=== PATIENT | male | born 1950 | race Caucasian/White ===

== ENCOUNTER 2018-05-20 10:29 | Inpatient (IN) ==
[2018-05-20 11:33] LABS: Baso % (Auto) 0.6 % (0.0-2.0); Eos # (Auto) 0.2 th/mm3 (0.0-0.4); Hematocrit 44.8 % (39.0-51.0); Lymph # (Auto) 1.1 th/mm3 (1.0-4.8); Lymph % (Auto) 13.5 % (9.0-44.0); Mean Corpuscular HGB Conc 33.4 % (32.0-36.0); Mean Corpuscular Hemoglobin 30.2 pg (27.0-34.0); Mean Corpuscular Volume 90.3 fL (80.0-100.0); Mono # (Auto) 0.5 th/mm3 (0.0-0.9); Mono % (Auto) 6.1 % (0.0-8.0); Neut % (Auto) 76.8 % (16.0-70.0); Platelet Count 244 th/mm3 (150-450); Red Blood Count 4.96 mil/mm3 (4.50-5.90); Red Cell Distribution Width 15.4 % (11.6-17.2); White Blood Count 7.8 th/mm3 (4.0-11.0)
[2018-05-20 11:45] LABS: Albumin 3.9 g/dL (3.4-5.0); Anion Gap 8 meq/L (5-15); Aspartate Aminotransferase 42 U/L (15-37); Blood Urea Nitrogen 15 mg/dL (7-18); Calcium 9.4 mg/dL (8.5-10.1); Carbon Dioxide 25.9 meq/L (21.0-32.0); Chloride 107 meq/L (98-107); Glomerular Filtration Rate 58 mL/min (>89); Glucose,Random 111 mg/dL (74-106); Sodium 141 meq/L (136-145)
[2018-05-20 11:48] LABS: Alanine Aminotransferase 22 U/L (12-78); Alkaline Phosphatase 71 U/L (45-117); Total Protein 7.9 g/dL (6.4-8.2)
[2018-05-20 11:57] LABS: INR 1.1 Ratio; Prothrombin Time 10.9 sec (9.8-11.6)
--- NOTE | 2018-05-20 12:43 | XR ---
EXAM DATE: 05/20/2018 10:55 AM EDT AGE/SEX: 68 years / Male INDICATIONS: Right foot pain and swelling, pain entire, burning on plantar surface and medial side CLINICAL DATA: This is the patient's initial encounter. Patient reports that signs and symptoms have been present for 2 weeks and indicates a pain score of 10/10. MEDICAL/SURGICAL HISTORY: None. None. COMPARISON: No prior exams available for comparison. FINDINGS: Bony structures are intact and in normal alignment. Osseous density is normal. Soft tissues are unre markable. No radiopaque foreign bodies seen. CONCLUSION: Negative for an acute process Electronically signed by: Shalom Qiu MD 05/20/2018 12:42 PM EDT
--- NOTE | 2018-05-20 14:14 | ED ---
HPI General Chief complaint: Recheck/Abnormal Lab/Rx Stated complaint: right & left foot swelling Time Seen by Provider: 05/20/18 10:49 Source: patient Mode of arrival: ambulatory Limitations: no limitations History of Present Illness HPI Narrative: 68-year-old male complains of pain redness and swelling right foot. Patient states her symptoms started 2 weeks ago. Patient denies any injury to right foot. Patient states that he has redness swelling and tenderness on the right foot about 3 months ago which lasted about a week and resolved completely. Patient states that symptoms recurring again 2 weeks ago. Patient denies any fever chills. Patient denies any history of hypertension, diabetes, hyperlipidemia. Patient is a smoker. Complaint: extremity pain Onset (ago): week(s) Pain Consistency: constant Severity scale (1-10): 5 Quality: sharp Radiation: none Relieving factors: nothing Exacerbating factors: nothing Associated symptoms: denies other symptoms Related Data Home Medications Medication Instructions Recorded Confirmed No Known Home Medications 05/20/18 05/20/18 Allergies Allergy/AdvReac Type Severity Reaction Status Date / Time No Known Allergies Allergy Verified 05/20/18 11:36 Review of Systems ROS: all other systems reviewed are negative [facility] Medical History Medical History Patient denies medical problems (Acute) Surgical History Surgical History No history of previous surgery (Acute) Family History Family History Brother Peripheral vascular disease Diabetes Father Peripheral vascular disease Social History Social History Substance History: No History of Abuse Second Hand Smoke Exposure: No Smoking Status: Current every day smoker Tobacco Type: Cigarettes Packs Per Day: 2 Cigarettes Per Day: 40.0 Years Smoked: 55 Pack-Years: 110.00 How Often Do You Have a Drink Containing Alcohol: Monthly or less Recent Travel in [facility] within the Last 8 Weeks: No Recent Out of Country Travel within the Last 8 Weeks: No Immunization History Tetanus Immunization: >5 Years Hx Influenza Vaccine This Season: No Exam Narrative Exam Narrative: GENERAL: Well-nourished, well-developed patient. SKIN: Focused skin assessment warm/dry. HEAD: Normocephalic. EYES: No scleral icterus. No injection or drainage. NECK: Supple, trachea midline. No JVD or lymphadenopathy. CARDIOVASCULAR: Regular rate and rhythm without murmurs, gallops, or rubs. RESPIRATORY: Breath sounds equal bilaterally. No accessory muscle use. GASTROINTESTINAL: Abdomen soft, non-tender, nondistended. MUSCULOSKELETAL: No cyanosis, or edema. BACK: Nontender without obvious deformity. No CVA tenderness. Examination of right foot shows small necrotic tissue on the tip of the right big toe and second toe. Redness swelling with mild tenderness extending from the toes to the midfoot area. Course Initial Documented Vital Signs Temperature 98.0 F 05/20/18 10:35 Pulse Rate 103 H 05/20/18 10:35 Respiratory Rate 20 05/20/18 10:35 Blood Pressure 144/66 H 05/20/18 10:35 Pulse Oximetry 96 05/20/18 10:35 Last Documented Vital Signs Temperature 98.0 F 05/20/18 10:35 Pulse Rate 96 H 05/20/18 14:00 Respiratory Rate 18 05/20/18 14:00 Blood Pressure 137/65 05/20/18 14:00 Pulse Oximetry 98 05/20/18 14:00 Medical Decision Making [facility] [place] Narrative Medical decision making narrative: 68-year-old male with redness swelling tenderness right foot and necrotic tissue tip of the big toe and second toe. Patient is a smoker. Medical Screen Exam Complete: Yes Emergency Medical Condition: Yes Differential Diagnosis Differential Diagnosis: Differential diagnosis including vascular insufficiency , cellulitis, osteomyelitis. Lab Data Result diagrams: 05/20/18 11:17 05/20/18 11:17 Lab Results 05/20/18 05/20/18 05/20/18 Range/Units 11:17 11:17 11:17 WBC 7.8 (4.0-11.0) th/mm3 RBC 4.96 (4.50-5.90) mil/mm3 Hgb 15.0 (13.0-17.0) gm/dL Hct 44.8 (39.0-51.0) % MCV 90.3 (80.0-100.0) fL MCH 30.2 (27.0-34.0) pg MCHC 33.4 (32.0-36.0) % RDW 15.4 (11.6-17.2) % Plt Count 244 (150-450) th/mm3 MPV 8.0 (7.0-11.0) fL Neut % (Auto) 76.8 H (16.0-70.0) % Lymph % (Auto) 13.5 (9.0-44.0) % Mason % (Auto) 6.1 (0.0-8.0) % Eos % (Auto) 3.0 (0.0-4.0) % Baso % (Auto) 0.6 (0.0-2.0) % Neut # (Auto) 6.0 (1.8-7.7) th/mm3 Lymph # (Auto) 1.1 (1.0-4.8) th/mm3 Mason # (Auto) 0.5 (0.0-0.9) th/mm3 Eos # (Auto) 0.2 (0.0-0.4) th/mm3 Baso # (Auto) 0.0 (0.0-0.2) th/mm3 WBC Differential . Differential Comment Auto diff final ESR (0-20) mm/hr PT 10.9 (9.8-11.6) sec INR 1.1 Ratio Sodium 141 (136-145) meq/L Potassium 4.0 (3.5-5.1) meq/L Chloride 107 (98-107) meq/L Carbon Dioxide 25.9 (21.0-32.0) meq/L Anion Gap 8 (5-15) meq/L BUN 15 (7-18) mg/dL Creatinine 1.24 (0.60-1.30) mg/dL Estimated GFR 58 L (>89) mL/min Random Glucose 111 H (74-106) mg/dL Calcium 9.4 (8.5-10.1) mg/dL Total Bilirubin 0.5 (0.2-1.0) mg/dL AST 42 H (15-37) U/L ALT 22 (12-78) U/L Alkaline Phosphatase 71 (45-117) U/L Total Protein 7.9 (6.4-8.2) g/dL Albumin 3.9 (3.4-5.0) g/dL 05/20/18 Range/Units 11:17 WBC (4.0-11.0) th/mm3 RBC (4.50-5.90) mil/mm3 Hgb (13.0-17.0) gm/dL Hct (39.0-51.0) % MCV (80.0-100.0) fL MCH (27.0-34.0) pg MCHC (32.0-36.0) % RDW (11.6-17.2) % Plt Count (150-450) th/mm3 MPV (7.0-11.0) fL Neut % (Auto) (16.0-70.0) % Lymph % (Auto) (9.0-44.0) % Mason % (Auto) (0.0-8.0) % Eos % (Auto) (0.0-4.0) % Baso % (Auto) (0.0-2.0) % Neut # (Auto) (1.8-7.7) th/mm3 Lymph # (Auto) (1.0-4.8) th/mm3 Mason # (Auto) (0.0-0.9) th/mm3 Eos # (Auto) (0.0-0.4) th/mm3 Baso # (Auto) (0.0-0.2) th/mm3 WBC Differential Differential Comment ESR 24 H (0-20) mm/hr PT (9.8-11.6) sec INR Ratio Sodium (136-145) meq/L Potassium (3.5-5.1) meq/L Chloride (98-107) meq/L Carbon Dioxide (21.0-32.0) meq/L Anion Gap (5-15) meq/L BUN (7-18) mg/dL Creatinine (0.60-1.30) mg/dL Estimated GFR (>89) mL/min Random Glucose (74-106) mg/dL Calcium (8.5-10.1) mg/dL Total Bilirubin (0.2-1.0) mg/dL AST (15-37) U/L ALT (12-78) U/L Alkaline Phosphatase (45-117) U/L Total Protein (6.4-8.2) g/dL Albumin (3.4-5.0) g/dL Imaging Data Attestation: I personally reviewed and interpreted this imaging study as follows : Radiologist's impression: Foot X-Ray 05/20/18 10:55 CONCLUSION: Negative for an acute process Discharge Plan Discharge Disposition Patient Disposition: 30 Still Patient Discharge Details Diagnosis: Cellulitis of foot, right Physicians Team ED Provider: Mp Monroy Primary Care Provider: UNKNOWN, Attending Provider: Pascual Lee Status ED Status: Admitted Patient
--- NOTE | 2018-05-20 15:48 | P.HPIM ---
History of Present Illness Primary Care Physician: No PCP History of Present Illness: 68 year old with longstanding history of tobacco abuse presenting with right 1st and 2nd toe pain and right foot swelling/erythema. The patient states that for the past three weeks his right 1st and 2nd toes have become progressively black at the distal ends. He thought at first he may have had a fungus but it became progressively more painful with time to the point where he could barely put weight on his feet. He states in the past 2-3 days he noticed redness and swelling of the dorsum of his right foot. He denies fever, chills, calf pain, chest pain, shortness of breath, cough, rash, nausea, vomiting, or abdominal pain. He denies any medical problems but he also hasn't been seen by a doctor in at least ten years. He has been smoking for 55 years and states he is up to 2PPD. He has a strong family history of PAD in his brother and father. His brother has bilateral AKAs from PVD. The patient does not take any medications. He endorses pain in his foot that wakes him from sleep at night and states it is improved when he hangs his foot off the bed. - Diagnosis (1) Peripheral vascular disease (2) Ischemic ulcer Inpatient Certification: I certify that the inpatient services were ordered in accordance with Medicare regulations governing the order. This includes certification that hospital inpatient services are reasonable and necessary and in the case of services not specified as inpatient-only under 42 CFR 419.22(n), that they are appropriately provided as inpatient services in accordance to with the 2-midnight benchmark under 43 CFR 412.3(e) Estimated Total Length of Stay (Days): 2 Plans for Post Hospital Care: Not yet determined Review of Systems All other systems reviewed negative except as stated in HPI PMFSH - History History Provided By: Patient - Medical History Medical History: Medical History (Last Updated 05/20/18 @ 17:34 by Niyah Varela MD) Tobacco abuse - Surgical History Surgical History: Surgical History (Last Reviewed 05/20/18 @ 18:17 by Gael Veloz MD) No history of previous surgery - Family History Family History: Family History (Last Updated 05/20/18 @ 15:45 by Niyah Varela MD) Brother Peripheral vascular disease Diabetes Father Peripheral vascular disease - Social History I have reviewed the patient's Social History: Yes - Tobacco History Second Hand Smoke Exposure: No Tobacco Use In Past 30 Days: No Smoking Status: Current every day smoker Tobacco Type: Cigarettes Packs Per Day: 2 Years Smoked: 55 - Alcohol History How Often Do You Have a Drink Containing Alcohol: Monthly or less - Substance Use History Substance History: No History of Abuse - Travel History Recent Travel in the [place] Within the Last 8 Weeks: No Recent Travel Out of the Country Within the Last 8 Weeks: No - Immunization History Tetanus Immunization: >5 Years Hx Influenza Vaccine This Season: No Medications and Allergies Allergies Allergy/AdvReac Type Severity Reaction Status Date / Time No Known Allergies Allergy Verified 05/20/18 11:36 Home Medications Medication Instructions Recorded Confirmed Type No Known Home Medications 05/20/18 05/20/18 History Exam Vital signs: Vital Signs 05/20/18 10:35 05/20/18 11:29 05/20/18 11:49 Temperature 98.0 F Pulse Rate 103 H 95 H 70 Respiratory Rate 20 18 18 Blood Pressure 144/66 H 127/64 140/87 Pulse Oximetry 96 97 99 05/20/18 14:00 Temperature Pulse Rate 96 H Respiratory Rate 18 Blood Pressure 137/65 Pulse Oximetry 98 Intake & Output 05/19/18 05/20/18 05/20/18 18:59 06:59 18:59 Weight 72.575 kg Narrative: GENERAL: WN, WD pleasant male sitting up in bed in NAD. SKIN: Warm and dry. HEENT: AT/NC. Pupils equal and round. EOMI. MMM. NECK: Supple no tender LAD or JVD. HEART: RRR no m/r/g. LUNGS: CTAB without wheezes or crackles. ABDOMEN: +BS, soft, NT, ND. EXTREMITIES: Right 1st and 2nd toes with distal necrosis. Mild swelling of dorsum of right foot. Erythema over dorsum of right foot when supine but increases when dependent. Right toes and dorsum of foot cold to touch. BLE pedal pulses nonpalpable. NEURO: Awake and alert. PSYCH: Appropriate mood and affect. Results - Labs CBC & Chem 7: 05/20/18 11:17 05/20/18 11:17 Labs: Short CBC 05/20/18 Range/Units 11:17 WBC 7.8 (4.0-11.0) th/mm3 Hgb 15.0 (13.0-17.0) gm/dL Hct 44.8 (39.0-51.0) % Plt Count 244 (150-450) th/mm3 BMP 05/20/18 11:17 Sodium 141 Potassium 4.0 Chloride 107 Carbon Dioxide 25.9 BUN 15 Creatinine 1.24 Calcium 9.4 Liver Function 05/20/18 Range/Units 11:17 Total Bilirubin 0.5 (0.2-1.0) mg/dL AST 42 H (15-37) U/L ALT 22 (12-78) U/L Alkaline Phosphatase 71 (45-117) U/L Albumin 3.9 (3.4-5.0) g/dL - Imaging Impressions Foot X-Ray 05/20/18 10:55 CONCLUSION: Negative for an acute process Caprini VTE Risk Assessment Caprini VTE Risk Assessment: Moderate/High Risk (score >= 2) Caprini Risk Assessment Model: Point Value = 1 Point Value = 2 Point Value = 3 Point Value = 5 Age 41-60 Minor surgery BMI > 25 kg/m2 Swollen legs Varicose veins or History of unexplained or recurrent spontaneous Oral contraceptives or hormone replacement Sepsis (< 1 month) Serious lung disease, including pneumonia (< 1 month) Abnormal pulmonary function Acute myocardial infarction Congestive heart failure (< 1 month) History of inflammatory bowel disease Medical patient at bed rest Age 61-74 Arthroscopic surgery Major open surgery (> 45 min) Laparoscopic surgery (> 45 min) Malignancy Confined to bed (> 72 hours) Immobilizing plaster cast Central venous access Age >= 75 History of VTE Family history of VTE Factor V Leiden Prothrombin [id number] Lupus anticoagulant Anticardiolipin antibodies Elevated serum homocysteine Heparin-induced thrombocytopenia Other congenital or acquired thrombophilia Stroke (< 1 month) Elective arthroplasty Hip, pelvis, or leg fracture Acute spinal cord injury (< 1 month) Prophylaxis Regimen: Total Risk Factor Score Risk Level Prophylaxis Regimen 0-1 Low Early ambulation 2 Moderate Order ONE of the following: *Sequential Compression Device (SCD) *Heparin 5000 units SQ BID 3-4 Higher Order ONE of the following medications: *Heparin 5000 units SQ TID *Enoxaparin/Lovenox 40 mg SQ daily (WT < 150 kg, CrCl > 30 mL/min) *Enoxaparin/Lovenox 30 mg SQ daily (WT < 150 kg, CrCl > 10-29 mL/min) *Enoxaparin/Lovenox 30 mg SQ BID (WT < 150 kg, CrCl > 30 mL/min) AND/OR *Sequential Compression Device (SCD) 5 or more Highest Order ONE of the following medications: *Heparin 5000 units SQ TID (Preferred with Epidurals) *Enoxaparin/Lovenox 40 mg SQ daily (WT < 150 kg, CrCl > 30 mL/min) *Enoxaparin/Lovenox 30 mg SQ daily (WT < 150 kg, CrCl > 10-29 mL/min) *Enoxaparin/Lovenox 30 mg SQ BID (WT < 150 kg, CrCl > 30 mL/min) AND *Sequential Compression Device (SCD) Assessment and Plan - Assessment (1) Peripheral vascular disease Code(s): I73.9 - Peripheral vascular disease, unspecified Status: Acute (2) Ischemic ulcer Code(s): L98.499 - Non-pressure chronic ulcer of skin of other sites with unspecified severity Status: Acute - Plan 68 YOWM with longstanding h/o tobacco abuse and no regular medical care for many years presenting with right foot pain, 1st and 2nd toe necrosis, and erythema. 1. Ischemic ulcers, PVD - Necrotic tissue over right 1st and 2nd toes - Likely secondary to longstanding tobacco abuse - Check ABIs - Check lipid panel and A1c - Start ASA and Lipitor - Consult vascular surgery for further eval and need for CTA 2. Cellulitis - No white count or fever but patient with erythema and edema over dorsum of right foot where ischemic ulcers are located - XR negative for bony abnormalities or osteo - ESR mildly elevated - Start Rocephin 3. Tobacco abuse - Counseled on cessation DVT prophylaxis: heparin Code Status: FULL Discussed Condition With: Patient, family Discharge Planning: Needs further w/u for PVD. Will await vascular surgery's assessment
[2018-05-20] MEDS ORDERED: Acetaminophen 325 MG Tablet PO PRN (16:02)
[2018-05-20] MEDS ORDERED: Bisacodyl 10 MG Supp RECTAL PRN (16:02)
[2018-05-20] MEDS ORDERED: Morphine Sulfate Inj 2 MG/ML Vial IV.PUSH PRN (16:09)
[2018-05-20 16:51] LABS: Chol/HDL Ratio 6.31 Ratio; HDL Cholesterol 28.8 mg/dL (40.0-60.0)
[2018-05-20 17:16] LABS: Hemoglobin A1c 5.4 % (4.3-6.0)
[2018-05-20] MEDS: Heparin - SQ 10,000 UNITS/ML Vial SQ SCH (17:16)
--- NOTE | 2018-05-20 18:20 | P.CONVS ---
History of Present Illness Service: vascular surgery Consult date: 05/20/18 Reason for Consult: PAD Primary Care Provider: UNKNOWN Chief Complaint: 68 yo male with R LE tissue loss and B LE rest pain History of Present Illness: 68 yo male with several days worsening R digital tissue loss that he states just happened. Has B foot pain and tingling for longer. + 2ppd smoker. doesn't see MDs but does have [employer] benefits ([employer] x 2y) Review of Systems Constitutional: Denies chills, Denies fever(s) Cardiovascular: Denies chest pain Respiratory: Denies shortness of breath Musculoskeletal: Reports joint pain, Reports joint swelling, Reports muscle cramps, Reports radiating pain into limb, Reports stiffness, Reports tingling PMFSH - History History Provided By: Patient - Medical History Medical History: Medical History (Last Reviewed 05/20/18 @ 18:17 by Gael Veloz MD) Tobacco abuse - Surgical History Surgical History: Surgical History (Last Reviewed 05/20/18 @ 18:17 by Gael Veloz MD) No history of previous surgery - Family History Family History: Family History (Last Updated 05/20/18 @ 15:45 by Niyah Varela MD) Brother Peripheral vascular disease Diabetes Father Peripheral vascular disease - Social History I have reviewed the patient's Social History: Yes - Tobacco History Second Hand Smoke Exposure: No Tobacco Use In Past 30 Days: No Smoking Status: Current every day smoker Tobacco Type: Cigarettes Packs Per Day: 2 Years Smoked: 55 - Alcohol History How Often Do You Have a Drink Containing Alcohol: Monthly or less - Substance Use History Substance History: No History of Abuse - Travel History Recent Travel in the [place] Within the Last 8 Weeks: No Recent Travel Out of the Country Within the Last 8 Weeks: No - Immunization History Tetanus Immunization: >5 Years Hx Influenza Vaccine This Season: No Medications and Allergies Active Medications: Active Medications Acetaminophen (Tylenol) 650 mg PO Q4H PRN PRN Reason: Temp > 100.4 Hydrocodone Bitart/Acetaminophen ([place] 7.5/325) 1 tab PO Q4H PRN PRN Reason: PAIN SCALE 5-10/SEVERE COUGH Al Hydroxide/Mg Hydroxide (Milk Of Magnesia Liq) 30 ml PO Q12H PRN PRN Reason: Mild Constipation Bisacodyl (Dulcolax Supp) 10 mg RECTAL DAILY PRN PRN Reason: SEVERE CONSITIPATION Heparin Sodium (Porcine) (Heparin Inj) 5,000 units SQ Q8H [facility] Last Admin: 05/20/18 17:16 Dose: 5,000 units Ceftriaxone Sodium 1,000 mg/ (Sodium Chloride) 100 mls @ 200 mls/hr IV.SIG Q24H [facility] Last Admin: 05/20/18 17:15 Dose: 200 mls/hr Lactulose (Lactulose Liq) 30 ml PO DAILY PRN PRN Reason: SEVERE CONSITIPATION Morphine Sulfate (Morphine Inj) 2 mg IV.PUSH Q4H PRN PRN Reason: BREAKTHROUGH PAIN Ondansetron HCl (Zofran Inj) 4 mg IV.PUSH Q6H PRN PRN Reason: NAUSEA OR VOMITING Senna/Docusate Sodium (Yoana-Colace) 1 tab PO BID [facility] Sennosides (Senokot) 17.2 mg PO Q12H PRN PRN Reason: Moderate Constipation Allergies Allergy/AdvReac Type Severity Reaction Status Date / Time No Known Allergies Allergy Verified 05/20/18 11:36 Home Medications Medication Instructions Recorded Confirmed Type No Known Home Medications 05/20/18 05/20/18 History Physical Exam Vital Signs / I&O: Vital Signs 05/20/18 10:35 05/20/18 11:29 05/20/18 11:49 Temperature 98.0 F Pulse Rate 103 H 95 H 70 Respiratory Rate 20 18 18 Blood Pressure 144/66 H 127/64 140/87 Pulse Oximetry 96 97 99 05/20/18 14:00 05/20/18 17:18 Temperature 97.3 F L Pulse Rate 96 H 92 H Respiratory Rate 18 19 Blood Pressure 137/65 147/70 H Pulse Oximetry 98 98 Intake & Output 05/19/18 05/20/18 05/20/18 18:59 06:59 18:59 Weight 69.2 kg Other: Date of Last Bowel Movement 05/20/18 Weight On Admission 69.2 kg Neuro: alert, pleasant and conversant HEENT: NC/AT Neck: no JVD Heart: reg rate Lungs: clear Vascular: nonpalpable femoral, popliteal, pedal pulses Extremities: dependent rubor B LE R LE tissue loss digits Laboratory Results - last 24 hr 05/20/18 05/20/18 05/20/18 11:17 11:17 11:17 WBC 7.8 RBC 4.96 Hgb 15.0 Hct 44.8 MCV 90.3 MCH 30.2 MCHC 33.4 RDW 15.4 Plt Count 244 MPV 8.0 Neut % (Auto) 76.8 H Lymph % (Auto) 13.5 [place] % (Auto) 6.1 Eos % (Auto) 3.0 Baso % (Auto) 0.6 Neut # (Auto) 6.0 Lymph # (Auto) 1.1 [place]ick # (Auto) 0.5 Eos # (Auto) 0.2 Baso # (Auto) 0.0 WBC Differential . Differential Comment Auto diff final ESR PT 10.9 INR 1.1 Sodium 141 Potassium 4.0 Chloride 107 Carbon Dioxide 25.9 Anion Gap 8 BUN 15 Creatinine 1.24 Estimated GFR 58 L Random Glucose 111 H Hemoglobin A1c Calcium 9.4 Total Bilirubin 0.5 AST 42 H ALT 22 Alkaline Phosphatase 71 Total Protein 7.9 Albumin 3.9 Triglycerides Cholesterol LDL Cholesterol, Calc HDL Cholesterol Cholesterol/HDL Ratio 05/20/18 05/20/18 05/20/18 11:17 11:17 11:17 WBC RBC Hgb Hct MCV MCH MCHC RDW Plt Count MPV Neut % (Auto) Lymph % (Auto) Maverick % (Auto) Eos % (Auto) Baso % (Auto) Neut # (Auto) Lymph # (Auto) Ma[place]ick # (Auto) Eos # (Auto) Baso # (Auto) WBC Differential Differential Comment ESR 24 H PT INR Sodium Potassium Chloride Carbon Dioxide Anion Gap BUN Creatinine Estimated GFR Random Glucose Hemoglobin A1c 5.4 Calcium Total Bilirubin AST ALT Alkaline Phosphatase Total Protein Albumin Triglycerides 137 Cholesterol 182 LDL Cholesterol, Calc 126 H HDL Cholesterol 28.8 L Cholesterol/HDL Ratio 6.31 Impressions Foot X-Ray 05/20/18 10:55 CONCLUSION: Negative for an acute process Assessment and Plan - Assessment (1) Peripheral vascular disease Code(s): I73.9 - Peripheral vascular disease, unspecified Status: Acute - Plan Severe PAD and on no medications 1. He likely has multilevel disease and likely severe aorto-iliac disease (no femoral pulses). I ordered CTA with runoff to ascertain inflow surgical options 2. ABIs ordered 3. Needs ASA, statin 4. Revascularization likely this admission; will follow closely 5. I discussed smoking cessation with the patient and his sister today Gael Veloz MD FACS [employer] fur floor worker [facility] at [place] [phone]
[2018-05-20] MEDS: Senna/Docusate Sodium 8.6/50 MG Tablet PO SCH (21:41)
--- NOTE | 2018-05-20 23:04 | CT ---
EXAM DATE: 05/20/2018 7:20 PM EDT AGE/SEX: 68 years / Male INDICATIONS: Pain with swelling to right foot past 2 weeks. CLINICAL DATA: This is the patient's initial encounter. Patient reports that signs and symptoms have been present for 2 weeks and indicates a pain score of 5/10. MEDICAL/SURGICAL HISTORY: None. None. RADIATION DOSE: 4.59 CTDI (mGy) COMPARISON: . TECHNIQUE: Volumetric scanning was performed using a multi-row detector CT scanner during bolus infu jamel of 100 ml Omnipaque 350 (iohexol) nonionic water-soluble contrast as a single exam dose. The data was post processed with a variety of visualization algorithms including full volume maximum inte nsity projection, multi-planar sliding thin slab reformation, curved planar reformation, and surface rendering techniques. Using automated exposure control and adjustment of the mA and/or kV according to patient size, radiation dose was kept as low as reasonably achievable to obtain optimal diagnostic quality images. DICOM format image data is available electronically for review and comparison. 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 Renal Arteries: Single patent right renal artery. Accessory renal artery supplying the superior pole the left kidney. Main left renal artery is patent. Mesenteric Arteries: Celiac is patent. Mild stenosis of the SMA CAPO is likely occluded at the origin. Origin. Right side: Inflow: Moderate to severe focal stenosis of the right common iliac artery origin. Beyond this the co mmon iliac arteries dilated measuring up to 13 mm. Diffusely diseased internal iliac artery. Small ca liber but patent external iliac artery. 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 Outflow: The profunda is patent. SFA is occluded at the origin popliteal artery reconstitutes at the level of the knee via profunda collaterals and is diffusely small in caliber. Runoff: Limited two-vessel runoff with occlusion of the anterior tibial artery in the proximal calf. Left side: Inflow: Focal moderate stenosis of the mid left common iliac artery exaggerated by tortuosity. 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 Diffusely diseas ed internal iliac artery which is otherwise patent. External iliac artery is occluded at the origin. Common femoral artery is occluded. Outflow: Profunda reconstitutes via inferior epigastric and internal iliac collaterals. SFA is occlud ed at the origin popliteal artery reconstitutes at the level of the knee and is diffusely small in ca liber and diffusely diseased. Runoff: Limited three-vessel runoff to foot. General Findings: LOWER LUNGS: The visualized lower lungs are clear. LIVER: Mild diffusely decreased hepatic density without significant volume loss or focal mass. Gallb ladder is mildly distended. SPLEEN: Homogeneous density without enlargement. PANCREAS: Grossly unremarkable. KIDNEYS: Prominent hydronephrosis on the left which appears to extend to the UPJ. No radiopaque eliceo l calculi. There is cortical thinning on the left. Right kidney is normal in appearance. ADRENAL GLANDS: Adrenal glands are hypertrophied bilaterally. BOWEL/MESENTERY: Moderate colonic diverticulosis without significant inflammatory change. Bowel is o therwise unremarkable. No free fluid or drainable fluid collections. No pneumatosis. ABDOMINAL WALL: Intact. RETROPERITONEUM: No evidence of adenopathy in the retrocrural, para-aortic, or deep pelvic regions. BLADDER: Contours are smooth. REPRODUCTIVE: No abnormal masses or calcifications seen. INGUINAL: Probable left-sided varicoceles. BONY STRUCTURES: Degenerative spondylosis of the lumbar spine. CONCLUSION: 1. 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 No evidence for leak or rupture at this time. 2. Moderate to severe focal stenosis of the right common iliac artery origin with diffusely aneurysm al right common iliac artery more distally measuring up to 13 mm. 3. Focal moderate to severe stenosis of the mid left common iliac artery exaggerated by tortuosity. 4. Occluded left external iliac artery and common femoral artery with reconstitution of the left pro trae. 5. Superficial femoral arteries are occluded bilaterally with reconstitution of the popliteal arteri es at the level of the knees. The popliteal arteries are small in caliber and diffusely diseased, par ticularly on the left. 6. Limited two-vessel on the right with occlusion of the anterior tibial artery and the proximal ashley f. Limited three-vessel runoff on the left. 7. Prominent apparent hydronephrosis of the left kidney which appears to be likely subacute to chron ic extending to the UPJ of indeterminate etiology. 8. Additional ancillary findings, as above. Electronically signed by: Fermin Moyer MD 05/20/2018 11:03 PM EDT
[2018-05-21] MEDS: Heparin - SQ 10,000 UNITS/ML Vial SQ SCH ×3 (01:28→16:29)
[2018-05-21 08:14] LABS: Baso # (Auto) 0.1 th/mm3 (0.0-0.2); Baso % (Auto) 0.7 % (0.0-2.0); Eos # (Auto) 0.3 th/mm3 (0.0-0.4); Eos % (Auto) 3.8 % (0.0-4.0); Hemoglobin 14.4 gm/dL (13.0-17.0); Lymph # (Auto) 1.1 th/mm3 (1.0-4.8); Lymph % (Auto) 15.9 % (9.0-44.0); Mean Corpuscular HGB Conc 33.5 % (32.0-36.0); Mean Corpuscular Hemoglobin 30.5 pg (27.0-34.0); Mean Corpuscular Volume 91.1 fL (80.0-100.0); Mean Platelet Volume 8.6 fL (7.0-11.0); Mono # (Auto) 0.5 th/mm3 (0.0-0.9); Mono % (Auto) 7.3 % (0.0-8.0); Neut # (Auto) 5.1 th/mm3 (1.8-7.7); Neut % (Auto) 72.3 % (16.0-70.0); Platelet Count 231 th/mm3 (150-450); Red Blood Count 4.72 mil/mm3 (4.50-5.90); Red Cell Distribution Width 15.4 % (11.6-17.2); White Blood Count 7.1 th/mm3 (4.0-11.0)
[2018-05-21] MEDS: Senna/Docusate Sodium 8.6/50 MG Tablet PO SCH ×2 (08:42→22:22)
[2018-05-21 08:44] LABS: Alanine Aminotransferase 24 U/L (12-78); Albumin 3.6 g/dL (3.4-5.0); Anion Gap 8 meq/L (5-15); Aspartate Aminotransferase 40 U/L (15-37); Calcium 9.5 mg/dL (8.5-10.1); Carbon Dioxide 25.5 meq/L (21.0-32.0); Chloride 108 meq/L (98-107); Glomerular Filtration Rate 65 mL/min (>89); Glucose,Random 93 mg/dL (74-106); Potassium 4.1 meq/L (3.5-5.1); Sodium 141 meq/L (136-145)
[2018-05-21 08:48] LABS: Alkaline Phosphatase 67 U/L (45-117); Blood Urea Nitrogen 15 mg/dL (7-18); Total Protein 7.5 g/dL (6.4-8.2)
--- NOTE | 2018-05-21 09:23 | P.PN ---
Subjective Interval history: Follow-up visit for right foot toe necrosis, peripheral vascular disease and cellulitis. Patient is seen and examined in bed resting in no acute distress, reports some dull pain on right foot overnight. Denies any numbness or tingling throughout legs. Denies any fevers, chills, shortness of breath, cough , chest pain, dizziness, lightheadedness or back pain. Briefly discussed with patient findings of CT overnight, will need further evaluation by vascular surgeon today. Physical Exam Vital signs: Vital Signs 05/20/18 10:35 05/20/18 11:29 05/20/18 11:49 Temperature 98.0 F Pulse Rate 103 H 95 H 70 Respiratory Rate 20 18 18 Blood Pressure 144/66 H 127/64 140/87 Pulse Oximetry 96 97 99 05/20/18 14:00 05/20/18 17:18 05/20/18 20:00 Temperature 97.3 F L 97.8 F Pulse Rate 96 H 92 H 93 H Respiratory Rate 18 19 18 Blood Pressure 137/65 147/70 H 133/64 Pulse Oximetry 98 98 05/21/18 01:30 05/21/18 07:49 05/21/18 08:37 Temperature 98.4 F 97.8 F Pulse Rate 90 93 H Respiratory Rate 20 18 Blood Pressure 106/57 L 153/64 H Pulse Oximetry 95 95 Intake & Output 05/20/18 05/21/18 05/21/18 18:59 06:59 18:59 Intake Total 580 / 580 Balance 580 / 580 Weight 69.2 kg 69.4 kg Intake: IV 100 / 100 Rocephin Inj 1,000 MG In NS Inj 100 / 100 100 ML @ 200 mls/hr IV.SIG Q24H REY Rx#:[id number] Oral 480 / 480 Other: # Voids 1 Date of Last Bowel Movement 05/20/18 Weight On Admission 69.2 kg Narrative: GENERAL: Well-nourished, well-developed male in no acute distress. SKIN: Warm and dry. HEENT: Pupils equal and round. Mucous membranes moist. NECK: Supple no tender, no JVD. HEART: Regular rate and rhythm, no murmur noted. LUNGS: Breath sounds clear to auscultation. ABDOMEN: +BS, soft, non-tender. EXTREMITIES: Right 1st and 2nd toes with distal necrosis. Mild swelling of dorsum of right foot with erythema over dorsum of right foot. Right toes and dorsum of foot cold to touch. BLE pedal pulses nonpalpable. NEURO: Awake and alert. PSYCH: Appropriate mood and affect. Results - Labs CBC & Chem 7: 05/21/18 06:35 05/21/18 06:35 Laboratory Results - last 24 hr 05/20/18 05/20/18 05/20/18 11:17 11:17 11:17 WBC 7.8 RBC 4.96 Hgb 15.0 Hct 44.8 MCV 90.3 MCH 30.2 MCHC 33.4 RDW 15.4 Plt Count 244 MPV 8.0 Neut % (Auto) 76.8 H Lymph % (Auto) 13.5 [place] % (Auto) 6.1 Eos % (Auto) 3.0 Baso % (Auto) 0.6 Neut # (Auto) 6.0 Lymph # (Auto) 1.1 [place] # (Auto) 0.5 Eos # (Auto) 0.2 Baso # (Auto) 0.0 WBC Differential . Differential Comment Auto diff final ESR PT 10.9 INR 1.1 Sodium 141 Potassium 4.0 Chloride 107 Carbon Dioxide 25.9 Anion Gap 8 BUN 15 Creatinine 1.24 Estimated GFR 58 L Random Glucose 111 H Hemoglobin A1c Calcium 9.4 Total Bilirubin 0.5 AST 42 H ALT 22 Alkaline Phosphatase 71 Total Protein 7.9 Albumin 3.9 Triglycerides Cholesterol LDL Cholesterol, Calc HDL Cholesterol Cholesterol/HDL Ratio Procalcitonin 05/20/18 05/20/18 05/20/18 11:17 11:17 11:17 WBC RBC Hgb Hct MCV MCH MCHC RDW Plt Count MPV Neut % (Auto) Lymph % (Auto) [place] % (Auto) Eos % (Auto) Baso % (Auto) Neut # (Auto) Lymph # (Auto) [place] # (Auto) Eos # (Auto) Baso # (Auto) WBC Differential Differential Comment ESR 24 H PT INR Sodium Potassium Chloride Carbon Dioxide Anion Gap BUN Creatinine Estimated GFR Random Glucose Hemoglobin A1c 5.4 Calcium Total Bilirubin AST ALT Alkaline Phosphatase Total Protein Albumin Triglycerides 137 Cholesterol 182 LDL Cholesterol, Calc 126 H HDL Cholesterol 28.8 L Cholesterol/HDL Ratio 6.31 Procalcitonin 05/20/18 05/21/18 05/21/18 18:25 06:35 06:35 WBC 7.1 RBC 4.72 Hgb 14.4 Hct 43.0 MCV 91.1 MCH 30.5 MCHC 33.5 RDW 15.4 Plt Count 231 MPV 8.6 Neut % (Auto) 72.3 H Lymph % (Auto) 15.9 [place] % (Auto) 7.3 Eos % (Auto) 3.8 Baso % (Auto) 0.7 Neut # (Auto) 5.1 Lymph # (Auto) 1.1 [place] # (Auto) 0.5 Eos # (Auto) 0.3 Baso # (Auto) 0.1 WBC Differential . Differential Comment Auto diff final ESR PT INR Sodium 141 Potassium 4.1 Chloride 108 H Carbon Dioxide 25.5 Anion Gap 8 BUN 15 Creatinine 1.12 Estimated GFR 65 L Random Glucose 93 Hemoglobin A1c Calcium 9.5 Total Bilirubin 0.4 AST 40 H ALT 24 Alkaline Phosphatase 67 Total Protein 7.5 Albumin 3.6 Triglycerides Cholesterol LDL Cholesterol, Calc HDL Cholesterol Cholesterol/HDL Ratio Procalcitonin 0.04 - Imaging Impressions Aorta w/Runoff CTA 05/20/18 00:00 CONCLUSION: 1. 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 No evidence for leak or rupture at this time. 2. Moderate to severe focal stenosis of the right common iliac artery origin with diffusely aneurysmal right common iliac artery more distally measuring up to 13 mm. 3. Focal moderate to severe stenosis of the mid left common iliac artery exaggerated by tortuosity. 4. Occluded left external iliac artery and common femoral artery with reconstitution of the left profunda. 5. Superficial femoral arteries are occluded bilaterally with reconstitution of the popliteal arteries at the level of the knees. The popliteal arteries are small in caliber and diffusely diseased, particularly on the left. 6. Limited two-vessel on the right with occlusion of the anterior tibial artery and the proximal calf. Limited three-vessel runoff on the left. 7. Prominent apparent hydronephrosis of the left kidney which appears to be likely subacute to chronic extending to the UPJ of indeterminate etiology. 8. Additional ancillary findings, as above. Foot X-Ray 05/20/18 10:55 CONCLUSION: Negative for an acute process Assessment and Plan - Assessment (1) Peripheral vascular disease Code(s): I73.9 - Peripheral vascular disease, unspecified Status: Acute (2) Ischemic ulcer Code(s): L98.499 - Non-pressure chronic ulcer of skin of other sites with unspecified severity Status: Acute - Plan 68 YOWM with longstanding h/o tobacco abuse and no regular medical care for many years presenting with right foot pain, 1st and 2nd toe necrosis, and erythema. 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 No evidence for leak or rupture at this time. 2. Moderate to severe focal stenosis of the right common iliac artery origin with diffusely aneurysmal right common iliac artery more distally measuring up to 13 mm. 3. Focal moderate to severe stenosis of the mid left common iliac artery exaggerated by tortuosity. 4. Occluded left external iliac artery and common femoral artery with reconstitution of the left profunda. 5. Superficial femoral arteries are occluded bilaterally with reconstitution of the popliteal arteries at the level of the knees. The popliteal arteries are small in caliber and diffusely diseased, particularly on the left. 6. Limited two-vessel on the right with occlusion of the anterior tibial artery and the proximal calf. Limited three-vessel runoff on the left. 7. Prominent apparent hydronephrosis of the left kidney which appears to be likely subacute to chronic extending to the UPJ of indeterminate etiology. 8. Additional ancillary findings, as above. - Consult vascular surgery following, discussed with JUAN Negrete. Patient to be reevaluated by Dr. Veloz today, hold off on anticoagulation for the moment. Juxtarenal fusiform aortic aneurysm with thrombus -Vascular surgery following, appreciate assistance -Consult placed for cardiology, appreciate further recommendations. Cellulitis - No white count or fever but patient with erythema and edema over dorsum of right foot where ischemic ulcers are located - XR negative for bony abnormalities or osteo - ESR mildly elevated - Continue IV Rocephin, recheck CBC in the a.m. -Podiatry consulted, greatly appreciate assistance. 3. Tobacco abuse - Counseled on cessation DVT prophylaxis: Subcutaneous heparin Discussed Condition With: Discussed with patient, RN, JUAN Negrete and Dr. Garcia. Discharge Planning: Pending evaluation by vascular surgery for further recommendations, not ready for D/C. Will likely be going home depending on course.
--- NOTE | 2018-05-21 12:20 | ECHRPT ---
Indication: HEART FAILURE CONCLUSIONS Normal left ventricular size. Wall thickness is measured at the upper limits of normal. The left ventricular systolic function is moderately reduced with an estimated ejection fraction in the range of 40-45%. Moderate mitral valve regurgitation. Aortic valve sclerosis is present. [id number] aortic valve regurgitation. There is trace tricuspid valve regurgitation. Trivial pulmonary valve regurgitation. BP: / HR: Rhythm: Sinus MEASUREMENTS (Male / Female) Normal Values Technical Quality:Fair 2D ECHO LVOT Diameter 2.0 cm Aortic Root Diameter 3.1 cm DOPPLER AV Peak Velocity 208.0 cm/s AV Peak Gradient 17.3 mmHg AV Mean Gradient 8.0 mmHg AV Velocity Time Integral 36.0 cm AI Peak Velocity 311.0 cm/s AI Peak Gradient 38.7 mmHg AI Pressure Half Time 286.0 ms LVOT Peak Velocity 86.5 cm/s LVOT Peak Gradient 3.0 mmHg LVOT Velocity Time Integral 15.4 cm AV Area Cont Eq vti 1.3 cm AV Area Cont Eq pk 1.3 cm Mitral E Point Velocity 116.0 cm/s Mitral A Point Velocity 118.5 cm/s Mitral E to A Ratio 1.0 LV E' Lateral Velocity 14.4 cm/s Mitral E to LV E' Lateral Ratio 8.1 LV E' Septal Velocity 5.1 cm/s Mitral E to LV E' Septal Ratio 22.9 TR Peak Velocity 265.0 cm/s TR Peak Gradient 28.0 mmHg PV Peak Velocity 53.4 cm/s PV Peak Gradient 1.1 mmHg FINDINGS LEFT VENTRICLE Normal left ventricular size. Wall thickness is measured at the upper limits of normal. The left ventricular systolic function is moderately reduced with an estimated ejection fraction in the range of 40-45%. RIGHT VENTRICLE Normal right ventricular size and systolic function. LEFT ATRIUM The left atrial size is normal. RIGHT ATRIUM The right atrial size is normal. ATRIAL SEPTUM No atrial level shunt is demonstrated by color flow Doppler interrogation. AORTA The aortic root and proximal ascending aorta are normal in size on limited imaging. MITRAL VALVE Moderate mitral valve regurgitation. AORTIC VALVE Aortic valve sclerosis is present. [id number] aortic valve regurgitation. TRICUSPID VALVE There is trace tricuspid valve regurgitation. PULMONARY VALVE Trivial pulmonary valve regurgitation. VESSELS The inferior vena cava is normal in size. PERICARDIUM No pericardial effusion. Sam Palencia (Electronically Signed) Final Date:21 May 2018 12:19
--- NOTE | 2018-05-21 12:38 | P.PNVS ---
Subjective Subjective/Hospital Course: Mr. Rincon's CTA was reviewed in detail. He has combined aneurysmal and occlusive disease, with the latter being clinically more pressing. I think the best option is a R LE bypass, likely with inflow endovascular therapy, followed in short order by [facility]. Discussed with patient. Plannig for R LE angiogram (diagnostic) tomorrow (Wed). Objective Vital Signs / I&O: Vital Signs 05/20/18 14:00 05/20/18 17:18 05/20/18 20:00 Temperature 97.3 F L 97.8 F Pulse Rate 96 H 92 H 93 H Respiratory Rate 18 19 18 Blood Pressure 137/65 147/70 H 133/64 Pulse Oximetry 98 98 05/21/18 01:30 05/21/18 07:49 05/21/18 08:37 Temperature 98.4 F 97.8 F Pulse Rate 90 93 H Respiratory Rate 20 18 Blood Pressure 106/57 L 153/64 H Pulse Oximetry 95 95 05/21/18 12:00 Temperature 98.1 F Pulse Rate 88 Respiratory Rate 18 Blood Pressure 122/58 L Pulse Oximetry 98 Intake & Output 05/20/18 05/21/18 05/21/18 18:59 06:59 18:59 Intake Total 580 / 580 Balance 580 / 580 Weight 69.2 kg 69.4 kg Intake: IV 100 / 100 Rocephin Inj 1,000 MG In NS Inj 100 / 100 100 ML @ 200 mls/hr IV.SIG Q24H REY Rx#:[id number] Oral 480 / 480 Other: # Voids 1 Date of Last Bowel Movement 05/20/18 05/20/18 Weight On Admission 69.2 kg Physical Exam: resting in bed, eating lunch stable tissue loss R toes + forefoot erythema Laboratory Results - last 24 hr 05/20/18 05/20/18 05/20/18 11:17 11:17 18:25 WBC RBC Hgb Hct MCV MCH MCHC RDW Plt Count MPV Neut % (Auto) Lymph % (Auto) [place] % (Auto) Eos % (Auto) Baso % (Auto) Neut # (Auto) Lymph # (Auto) [place] # (Auto) Eos # (Auto) Baso # (Auto) WBC Differential Differential Comment Sodium Potassium Chloride Carbon Dioxide Anion Gap BUN Creatinine Estimated GFR Random Glucose Hemoglobin A1c 5.4 Calcium Total Bilirubin AST ALT Alkaline Phosphatase Total Protein Albumin Triglycerides 137 Cholesterol 182 LDL Cholesterol, Calc 126 H HDL Cholesterol 28.8 L Cholesterol/HDL Ratio 6.31 Procalcitonin 0.04 05/21/18 05/21/18 06:35 06:35 WBC 7.1 RBC 4.72 Hgb 14.4 Hct 43.0 MCV 91.1 MCH 30.5 MCHC 33.5 RDW 15.4 Plt Count 231 MPV 8.6 Neut % (Auto) 72.3 H Lymph % (Auto) 15.9 [place] % (Auto) 7.3 Eos % (Auto) 3.8 Baso % (Auto) 0.7 Neut # (Auto) 5.1 Lymph # (Auto) 1.1 [place] # (Auto) 0.5 Eos # (Auto) 0.3 Baso # (Auto) 0.1 WBC Differential . Differential Comment Auto diff final Sodium 141 Potassium 4.1 Chloride 108 H Carbon Dioxide 25.5 Anion Gap 8 BUN 15 Creatinine 1.12 Estimated GFR 65 L Random Glucose 93 Hemoglobin A1c Calcium 9.5 Total Bilirubin 0.4 AST 40 H ALT 24 Alkaline Phosphatase 67 Total Protein 7.5 Albumin 3.6 Triglycerides Cholesterol LDL Cholesterol, Calc HDL Cholesterol Cholesterol/HDL Ratio Procalcitonin Impressions Aorta w/Runoff CTA 05/20/18 00:00 CONCLUSION: 1. 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 No evidence for leak or rupture at this time. 2. Moderate to severe focal stenosis of the right common iliac artery origin with diffusely aneurysmal right common iliac artery more distally measuring up to 13 mm. 3. Focal moderate to severe stenosis of the mid left common iliac artery exaggerated by tortuosity. 4. Occluded left external iliac artery and common femoral artery with reconstitution of the left profunda. 5. Superficial femoral arteries are occluded bilaterally with reconstitution of the popliteal arteries at the level of the knees. The popliteal arteries are small in caliber and diffusely diseased, particularly on the left. 6. Limited two-vessel on the right with occlusion of the anterior tibial artery and the proximal calf. Limited three-vessel runoff on the left. 7. Prominent apparent hydronephrosis of the left kidney which appears to be likely subacute to chronic extending to the UPJ of indeterminate etiology. 8. Additional ancillary findings, as above. Foot X-Ray 05/20/18 10:55 CONCLUSION: Negative for an acute process Assessment and Plan - Assessment (1) Peripheral vascular disease Code(s): I73.9 - Peripheral vascular disease, unspecified Status: Acute - Plan Severe PAD and TAAA 1. Diagnostic R LE angiogram Wed, then distal, potentially Sunday 2. ABIs pending 3. Ordered UE/LE vein survey 4. Needs ASA, statin 5. Smoking cessation Gael Veloz MD FACS RPVI seat trimmer [facility] - [facility] at [facility] [phone]
--- NOTE | 2018-05-21 12:39 | P.PNVS ---
- Pre-operative Note Planned Procedure: R LE angiogram Interval History: Pt inpatient, no change Labs: WBC 7.1 th/mm3 (4.0-11.0) 05/21/18 06:35 RBC 4.72 mil/mm3 (4.50-5.90) 05/21/18 06:35 Hgb 14.4 gm/dL (13.0-17.0) 05/21/18 06:35 Hct 43.0 % (39.0-51.0) 05/21/18 06:35 MCV 91.1 fL (80.0-100.0) 05/21/18 06:35 MCH 30.5 pg (27.0-34.0) 05/21/18 06:35 MCHC 33.5 % (32.0-36.0) 05/21/18 06:35 RDW 15.4 % (11.6-17.2) 05/21/18 06:35 Plt Count 231 th/mm3 (150-450) 05/21/18 06:35 MPV 8.6 fL (7.0-11.0) 05/21/18 06:35 INR 1.1 Ratio 05/20/18 11:17 Sodium 141 meq/L (136-145) 05/21/18 06:35 Potassium 4.1 meq/L (3.5-5.1) 05/21/18 06:35 Chloride 108 meq/L (98-107) H 05/21/18 06:35 Carbon Dioxide 25.5 meq/L (21.0-32.0) 05/21/18 06:35 Anion Gap 8 meq/L (5-15) 05/21/18 06:35 BUN 15 mg/dL (7-18) 05/21/18 06:35 Random Glucose 93 mg/dL (74-106) 05/21/18 06:35 Calcium 9.5 mg/dL (8.5-10.1) 05/21/18 06:35 Blood: not needed Imaging: ITS Impressions Aorta w/Runoff CTA 05/20/18 00:00 CONCLUSION: 1. 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 No evidence for leak or rupture at this time. 2. Moderate to severe focal stenosis of the right common iliac artery origin with diffusely aneurysmal right common iliac artery more distally measuring up to 13 mm. 3. Focal moderate to severe stenosis of the mid left common iliac artery exaggerated by tortuosity. 4. Occluded left external iliac artery and common femoral artery with reconstitution of the left profunda. 5. Superficial femoral arteries are occluded bilaterally with reconstitution of the popliteal arteries at the level of the knees. The popliteal arteries are small in caliber and diffusely diseased, particularly on the left. 6. Limited two-vessel on the right with occlusion of the anterior tibial artery and the proximal calf. Limited three-vessel runoff on the left. 7. Prominent apparent hydronephrosis of the left kidney which appears to be likely subacute to chronic extending to the UPJ of indeterminate etiology. 8. Additional ancillary findings, as above. Foot X-Ray 05/20/18 10:55 CONCLUSION: Negative for an acute process Post-operative Destination: DOCU then floor Operative site marked: No Consent: Informed consent has been obtained from Kain Rincon. I have explained the procedure in detail and discussed the risks, benefits, and potential complications. All questions have been answered. Patient Contact Information: I spoke with the sister last night.
--- NOTE | 2018-05-21 15:49 | ECHRPT ---
EXAM DATE: 05/21/2018 12:00 AM EDT AGE/SEX: 68 years / Male INDICATIONS: PVD CLINICAL DATA: This is the patient's initial encounter. Patient reports that signs and symptoms have been present for 3 weeks and indicates a pain score of 8/10. MEDICAL/SURGICAL HISTORY: . PVD, tobacco abuse None. COMPARISON: No prior exams available for comparison. TECHNIQUE: Four-cuff ankle and brachial pressures were obtained. Pulse cuff waveform tracings of the ankles were recorded, and ankle-brachial indices were calculated. PRESSURES (mmHg): Brachial (arm) : RIGHT: 121, LEFT: IV SITE Ankle : RIGHT: 39, LEFT: 12 DILLON : RIGHT: 0.32, LEFT: 0.10 TBI : RIGHT: 0.00, LEFT: 0.00 FINDINGS: Pulsed-Cuff Waveform: Monophasic waveforms.. Other: None. CONCLUSION: 1. Severe reduction of the ABIs bilaterally. Electronically signed by: Willard Dacosta MD 05/21/2018 3:48 PM EDT
--- NOTE | 2018-05-21 16:04 | US ---
EXAM DATE: 05/21/2018 12:00 AM EDT AGE/SEX: 68 years / Male INDICATIONS: Pre-op cardiac surgery. CLINICAL DATA: This is the patient's initial encounter. Patient reports that signs and symptoms have been present for 1 day and indicates a pain score of 0/10. MEDICAL/SURGICAL HISTORY: Peripheral vascular disease. Tobacco abuse. Ischemic ulcer. . No his tory of previous surgery. COMPARISON: No prior exams available for comparison. TECHNIQUE: Venous ultrasound of both lower extremities was performed from the inguinal ligament to t he proximal calf. Real-time, color Doppler and spectral tracing, compression and augmentation techni ques were used. FINDINGS: Right Leg: Normal compression of the deep venous system from the inguinal region to the proximal ashley f. No echogenic clot is seen. Normal response of the venous system to augmentation and respiration. Left Leg: Normal compression of the deep venous system from the inguinal region to the proximal calf . No echogenic clot is seen. Normal response of the venous system to augmentation and respiration. Other: None. CONCLUSION: 1. The study is negative for bilateral lower extremity deep venous thrombosis. Electronically signed by: Donald Torres MD 05/21/2018 4:03 PM EDT
--- NOTE | 2018-05-21 16:04 | US ---
EXAM DATE: 05/21/2018 12:00 AM EDT AGE/SEX: 68 years / Male INDICATIONS: Pre-op cardiac surgery. CLINICAL DATA: This is the patient's initial encounter. Patient reports that signs and symptoms have been present for 1 day and indicates a pain score of 0/10. MEDICAL/SURGICAL HISTORY: Peripheral vascular disease. Tobacco abuse. Ischemic ulcer. . No his tory of previous surgery. COMPARISON: No prior exams available for comparison. MEASUREMENTS: RIGHT THIGH: Proximal:__7 mm Mid:__ 3 mm Distal:__2 mm LEFT THIGH: Proximal:__7 mm Mid:__3 mm Distal:__2 mm RIGHT CALF: Proximal:__3 mm Mid:__3 mm Distal:__3 mm LEFT CALF: Proximal:__3 mm Mid:__3 mm Distal:__3 mm FINDINGS: The venous system of the lower extremities are patent by color Doppler imaging. Measurements of the leg veins (in mm) are listed above. CONCLUSION: 1. Venous mapping as above. Electronically signed by: Donald Torres MD 05/21/2018 4:03 PM EDT
--- NOTE | 2018-05-21 22:18 | MB ---
cc: Gibson Hernandez MD, Marizsa ARNP DATE: 05/21/2018 REFERRING PHYSICIAN: JUAN Urban CHIEF COMPLAINT: 1. Abdominal aortic aneurysm with mural thrombus. 2. Critical limb ischemia. HISTORY OF PRESENT ILLNESS: Mr. Kain Rincon is a very pleasant 68-year-old gentleman who has a past medical history of tobacco abuse, hypertension, who has had progressively worsening foot swelling and erythema of his right first and second toes that has been worsening over the past 3 weeks. The toes have progressively become gangrenous at the distal ends. The patient reports that he can barely tolerate having weight on his toes. He reports that he is not having any systemic signs of fevers, chills. He reports that occasionally he has pain at rest, causing him to dangle his feet at the edge of the bed. He has a strong family history of peripheral arterial disease in his family with his brother and his father. He is not currently on any medications. He does not endorse any cardiovascular history. He underwent a transthoracic echocardiogram earlier today which showed a LV function of 40% to 45% with moderate mitral valve regurgitation and mild to moderate aortic valve regurgitation. Currently, the patient is stable without any current complaints at this time. 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 No evidence of leak or rupture. He also has moderate to severe focal stenosis of the right common iliac artery origin with diffuse aneurysmal right common iliac artery more distally measuring up to 13 mm. He also has a focal moderate to severe stenosis of the mid left common iliac artery exacerbated by tortuosity. He has an occluded left external iliac artery and common femoral artery with reconstitution of the left profunda. Superficial arteries are occluded bilaterally with reconstitution of the popliteal arteries at the level of the knee. The popliteal arteries are small caliber and diffusely diseased, particularly on the left. He has limited 2 vessel on the right with occlusion of the anterior tibial artery and proximal calf. This is his first peripheral vascular intervention. REVIEW OF SYSTEMS: The patient denies any chest pain, PND, orthopnea, lower extremity edema, syncope or presyncope. All other review of systems is negative unless mentioned in the HPI. PAST MEDICAL HISTORY: Hypertension and tobacco abuse. PAST SURGICAL HISTORY: No surgical history. FAMILY HISTORY: Strong history of diabetes and peripheral vascular disease. SOCIAL HISTORY: He is a current smoker, 2 packs per day. He has smoked for 55 years. MEDICATIONS: Reviewed in the electronic medical record. ALLERGIES: REVIEWED IN THE ELECTRONIC MEDICAL RECORD. PHYSICAL EXAMINATION: VITAL SIGNS: Blood pressure 144/66, heart rate 102. GENERAL: Comfortable, in no acute distress. EYES: No scleral icterus. OROPHARYNX: Moist mucous membranes. CARDIOVASCULAR: Regular rate and rhythm, S1, S2. LUNGS: Clear to auscultation. ABDOMEN: Soft, nontender, nondistended. EXTREMITIES: Nonpalpable femoral, popliteal and pedal pulses. There is dependent rubor in the bilateral lower extremities and right lower extremity tissue loss in the digits. DIAGNOSTIC DATA: X-ray was negative for osteomyelitis. Echocardiogram showed an EF of 40% to 45% with moderate mitral valve regurgitation and mild to moderate aortic valve regurgitation. ASSESSMENT AND PLAN: 1. Mr. Kain Rincon is a very pleasant 68-year-old gentleman who is presenting with Sherburn class lifestyle-limiting claudication with critical limb ischemia. Dr. Veloz will be performing intervention with regard to his multilevel disease. Additionally, the patient has a 6.3 juxtarenal aortic aneurysm with mural thrombus that will also need to be addressed from a surgical standpoint. We will continue aspirin and statin therapy. He is not currently on beta blockers and thus I would not start beta blockers in the acute setting. We did discuss smoking cessation. 2. Dilated cardiomyopathy with an ejection fraction of 40% to 45% with moderate mitral regurgitation. The patient appears to be euvolemic from this perspective. He will need to be placed on optimal medical therapy including beta kalia and angiotensin-converting enzyme inhibitor therapy. I would plan to start this after his surgical revascularization has occurred as starting beta blockers acutely prior to surgery has not shown any benefit. Thank you for allowing me to participate in the care of Mr. Kain Rincon. Please feel free to contact me with any further questions regarding his care. MD BENNETT Callahan/tez , 07:52 PM , 08:02 PM
--- NOTE | 2018-05-21 22:35 | MB ---
cc: Liudmila Diez DPM DATE: 05/21/2018 REASON FOR CONSULTATION: Right foot gangrene. HISTORY OF PRESENT ILLNESS: The patient is a 68-year-old male with a longstanding history of tobacco. He says he has worsening pain and discoloration on the right foot, does deny fever, chills, diarrhea, chest pain, shortness of breath when seen at bedside today. He has not followed up with medicine in the last 10 years. He has a history of smoking 2 packs a day for 55 years. PAST MEDICAL HISTORY: Tobacco abuse. SURGICAL HISTORY: Denies all. SOCIAL HISTORY: Positive smoking. Social drinking. Denies illicit drugs. MEDICATIONS: Per HPI. PHYSICAL EXAMINATION: EXTREMITIES: Lower extremity right DP and PT nonpalpable. Mild erythema, edema to the dorsum of the foot. No drainage. No open wounds. Right first and second digit with ischemic presentation to the distal tip. There are no ulcerations, no break in the skin. Right fourth digit with a purpuric-type digit. Muscle strength intact +5/5. Protective sensation grossly intact. Right foot x-rays carried out 05/20/2018 with no fractures noted. No gas noted. CTA with runoff which indicates lower extremity occlusion bilaterally. This was completed on 05/20/2018. ASSESSMENT AND PLAN: Severe peripheral vascular disease. The patient has planned angio with Dr. Veloz and then intervention per Dr. Veloz and vascular. At this point, there is no surgical intervention per podiatry. I recommended Santyl ointment and dry sterile dressings, change daily. He understands how important it is to discontinue smoking. He can have his local wound care and followup with podiatry as an outpatient. All questions were answered. Thank you for the kind consult. Liudmila Diez DPM SR/shannan , 09:09 PM , 09:18 PM
[2018-05-22] MEDS: Heparin - SQ 10,000 UNITS/ML Vial SQ SCH ×3 (01:45→17:19)
[2018-05-22] MEDS ORDERED: Metoprolol Tartrate 25 MG Tablet PO ONE (03:41)
[2018-05-22] MEDS ORDERED: Chlorhexidine Gluconate 2% 1 Pack (2 Cloths) TOPICAL ONE (03:41)
[2018-05-22] MEDS ORDERED: Sodium Chlor 0.9% Inj 500 ML IV.SIG SCH (04:00)
[2018-05-22 08:05] LABS: Baso # (Auto) 0.1 th/mm3 (0.0-0.2); Baso % (Auto) 0.8 % (0.0-2.0); Eos # (Auto) 0.3 th/mm3 (0.0-0.4); Eos % (Auto) 4.1 % (0.0-4.0); Hematocrit 42.3 % (39.0-51.0); Hemoglobin 14.1 gm/dL (13.0-17.0); Lymph # (Auto) 1.1 th/mm3 (1.0-4.8); Lymph % (Auto) 14.9 % (9.0-44.0); Mean Corpuscular HGB Conc 33.3 % (32.0-36.0); Mean Corpuscular Hemoglobin 30.4 pg (27.0-34.0); Mean Corpuscular Volume 91.2 fL (80.0-100.0); Mean Platelet Volume 8.5 fL (7.0-11.0); Mono # (Auto) 0.5 th/mm3 (0.0-0.9); Mono % (Auto) 7.1 % (0.0-8.0); Neut # (Auto) 5.3 th/mm3 (1.8-7.7); Neut % (Auto) 73.1 % (16.0-70.0); Platelet Count 207 th/mm3 (150-450); Red Blood Count 4.64 mil/mm3 (4.50-5.90); White Blood Count 7.2 th/mm3 (4.0-11.0)
[2018-05-22] MEDS ORDERED: Heparin/NS PF Inj 1,000 ML ONE (08:45)
[2018-05-22] MEDS ORDERED: fentaNYL Citrate Inj 100 MCG/2 ML Ampul ONE (08:45)
[2018-05-22] MEDS ORDERED: Heparin 10,000 UNITS/10 ML Vial (for IV use) ONE (09:00)
--- NOTE | 2018-05-22 09:14 | P.OP ---
- Preoperative Diagnosis (1) Peripheral vascular disease - Postoperative Diagnosis (1) Peripheral vascular disease Date of procedure: 05/22/18 Procedure: 1. U/S guided access to R BULK SAUSAGE CASING TIER OFF 2. R LE angiogram Implants: none Anesthesia: MAC Surgeon: Gael Veloz MD Estimated blood loss (mL): 5 Pathology: none sent Operation and Findings: 1. R CINDY stenosis 2. R SFA and popliteal occlusion 3. BK pop reconsitution with PT runoff to foot Plan for R groin reconstruction, iliac stent and R LE bypass on Monday 05/28
--- NOTE | 2018-05-22 09:17 | CATHPROC ---
[employer] HIS Report Study Information Study Number Admission Scheduled Start Study Start [id number] May 20 2018 3:12PM 05/22/2018 May 22 2018 8:43AM [facility] Cardiac Catheterization Admit Source Facility Department Emergency department [facility] - [employer] Physician and Clinical Staff Initial Gael George Thresher BroomcornDamon Paredes RN Thresher BroomcornNoe Nickerson,DEBORA Recorder Dave Rutledge,RT(R) Marita Ellis,RT(R) (BS) Procedures Performed Procedure Location (Site) Vessel Name Angiogram (manual) Iliac R. Com. (R4) Illiac Art. Angiogram (manual) SFA (right) Femoral Art Angiogram (manual) Tib, Ant. (right) Popliteal Angiogram (manual) Tib, Post (right) Popliteal L Heart Cath Equipment Time Frozen Meat Cutter Description Size Mfg Part Number Used/Scraped INTRODUCER SET, 09:01 [employer] FR 5 [id number] *[id number] Used MICROPUNCTURE STIFF [id number] 09:01 [employer] BLANKET,WARM AIR CCL * Used *[id number] 09:01 [employer] PACK, CCL CUSTOM * Used *[id number] 09:01 [employer] OMNIPAQUE, 300 MG, 50ML 50ML [id number] Used WIRE, ANGLED GLIDE .035 [id number] 09:01 [employer]DANIEL 260CM Used 260CM *[id number] History: Allergies Allergy Reaction No Known Allergies History: Risk Factors Family History of Hypertension Dyslipidemia Previous MS Previous Heart Failure Premature CAD No No No No No Prior Valve Prior PCI Prior CABG Surgery No No No Cerebrovascular Peripheral Artery Chronic Lung On Dialysis Diabetes Disease Disease Disease No No Yes No No History: Risk Factors Selection Items Current Smoker History: Stress Tests Stress or Imaging Studies Performed No History: Other Current Smoker Method Packs a Day Years Used Pack Years Yes Cigarettes 2 22 44 Labs Hgb (g/dl) Hct (%) RBC (MIL/MM3) WBC (l/cumm) Platelets (thousands) 11.60-17.00 35.00-51.00 4.00-5.90 4.00-11.00 150.00-450.00 14.4 43 4.7 7.1 231 Glucose (mg/dl) BUN (mg/dl) Creatinine (mg/dl) BUN:Creatinine (1:x) 74.00-106.00 7.00-18.00 0.50-1.30 10.00-20.00 93 15 1.1 13.6 Na (meq/l) K (meq/l) Cl (meq/l) CO2 (mmol/L) 136.00-145.00 3.50-5.10 98.00-107.00 21.00-32.00 141 4 108 25.5 PT (sec) INR (PTT:PT) 9.80-11.60 0.90-1.10 10.9 1.1 CPK-MB (ng/ML) 0.50-3.60 Not Drawn Medication Medication Total Dose (Bolus/Oral) Medication Total Dosage/Unit 1% XYLOCAINE 20 mL FENTANYL 50 mcg VERSED 1 mg Medications (Bolus/Oral) Medication Time Given Dosage/Unit Administered By Reason VERSED 05/22/2018 8:48:29 AM 1 mg Chemo, Damon 1 mg VERSED given in lab by Damon Mclain RN in Left Antecubital via Peripheral IV. FENTANYL 05/22/2018 8:49:02 AM 50 mcg Chemo, Damon 50 mcg FENTANYL given in lab by Damon Mclain RN in Left Antecubital via Peripheral IV. 1% XYLOCAINE 05/22/2018 8:58:19 AM 20 mL Gael Veloz 20 mL 1% XYLOCAINE given in lab by Gael Veloz in Right Groin via Subcutaneous. Medication (Drip) Medication Time Given Dosage/Unit Concentration/Unit Diluent (ml) Solution IV Solutions 05/22/2018 8:43:50 AM 0 mL (IV) 500 NaCl .9 IV Solutions given in lab by Damon Mclain RN in Left Antecubital via Peripheral IV. Pump/Drip Flow = 20 ml/hr using NaCl .9. Initial Case Assessment Cardiovascular HR Rhythm NIBP Chest Pain 93 Sinus 124/74 0 Edema Present Skin color Skin None Normal Warm Dry Circulatory - Right Pulses Dorsalis Pedis Femoral 0 0 Scale (0,1,2,3,4,d) Circulatory - Left Pulses Dorsalis Pedis Femoral 0 0 Scale (0,1,2,3,4,d) Neurological State Oriented to time-place- Alert Moves all extremities person Respiration - General Respiration Rate SpO2 (%) O2 (lpm) (B/min) 8 95 0 Final Case Assessment Cardiovascular HR Rhythm NIBP Chest Pain 82 Sinus 113/74 0 Edema Present Skin color Skin None Normal Warm Dry Circulatory - Right Pulses Dorsalis Pedis Femoral 0 0 Scale (0,1,2,3,4,d) Circulatory - Left Pulses Dorsalis Pedis Femoral 0 0 Scale (0,1,2,3,4,d) Neurological State Oriented to time-place- Alert Moves all extremities person Respiration - General Respiration Rate SpO2 (%) O2 (lpm) (B/min) 17 96 0 Chronological Log Time Study Chronological Log 8:43:30 Patient arrived via Bed. 8:43:31 Patient Name, D.O.B, / Armband Verified By R.N. 8:43:32 Consent signed by the physician and the patient and verified by the [employer] staff. 8:43:33 Pre-op and post- op instructions given; patient acknowledges understanding of instructions. 8:43:33 Verbal Stimulation=2 Physical Stimulation=2 Airway=2 Respiration=2 TOTAL=8. (0=absent, 1=li mited, 2=present) 8:43:36 Allens test performed on the right radial and ulnar artery. 8:43:40 Patient has been NPO for More than 6Hrs. 8:43:41 Skin Breakdown- none per patient. 8:43:43 Patient Warmer Placed on the Table. 8:43:45 Beltran Prominences Protected 8:43:46 A # 20 IV was noted in the Antecubital (left). Grade = 0 IV Solutions given in lab by Damon Mclain RN in Left Antecubital via Peripheral IV. Pump/Drip Flow = 20 ml/hr using 8:43:50 NaCl .9. 8:43:51 History and physical on the chart or being dictated. Assessment: Initial Case, HR=93 BPM, Rhythm=Sinus, BRTD=433/74 mmhg, Chest Pain=0, Edema=None, Color=Normal, Skin = Warm, Dry Right Pulses: Orlin Ped=0, Femoral=0 8:43:52 Left Pulses: Orlin Ped=0, Femoral=0 Neurological: State=Alert, Ox3, ROMO Respiration: Resp=8 B/min, SpO2=95 %, O2=0 lpm 8:48:29 1 mg VERSED given in lab by Damon Mclain RN in Left Antecubital via Peripheral IV. 8:48:57 MD arrived. 8:49:02 50 mcg FENTANYL given in lab by Damon Mclain RN in Left Antecubital via Peripheral IV. Vitals capture started with the following parameters, Patient=Adult, Interval=5 min, Initial Pre rixtc=759 mmHg, 8:53:29 Deflation Rate=5 mmHg, Cuff placed on Left Arm 8:54:05 NL=882 bpm, SIOR=181/74 mmhg, SpO2=95.0 %, Resp=8 B/min, Pain=0, Jett=10, Diaz=2 8:55:52 Bilateral groins prepped with 2% chlorhexidine, and draped after a 3 minute waiting time. Time Out. Correct patient, correct procedure, correct physician, labs, allergies, and equipment verified with medical lab tech instructor 8:57:29 team present. Fire risk assesment completed (see hard stop sheet for coding). Time Out Concu rred by MD and individual staff in procedure. 8:58:19 20 mL 1% XYLOCAINE given in lab by Gael Veloz in Right Groin via Subcutaneous. 8:58:20 Case Start 8:59:02 JV=518 bpm, HZDX=149/70 mmhg, SpO2=92.0 %, Resp=19 B/min, Pain=0, Jett=10, Diaz=2 8:59:47 Access site was Right Femoral Artery. A INTRODUCER SET, MICROPUNCTURE STIFF FR 5 was advanced into the Fem Art (right) using the Percu seth 9:01:05 technique. 9:01:38 Iliac R. Com. (R4) angiogram, manually injected. 9:01:53 Iliac R. Com. (R4) angiogram, manually injected. 9:02:22 SFA (right) angiogram, manually injected. 9:03:02 SFA (right) angiogram, manually injected. 9:03:46 Tib, Ant. (right) angiogram, manually injected. 9:04:01 HR=93 bpm, DTKP=685/74 mmhg, SpO2=92.0 %, Resp=26 B/min, Pain=0, Jett=10, Diaz=2 9:04:14 Tib, Ant. (right) angiogram, manually injected. 9:04:53 Tib, Ant. (right) angiogram, manually injected. 9:06:15 Tib, Post (right) angiogram, manually injected. 9:07:41 Case End (Physician broke scrub) Assessment: Final Case, HR=82 BPM, Rhythm=Sinus, KBPF=293/74 mmhg, Chest Pain=0, Edema=None, Color=Normal, Skin = Warm, Dry Right Pulses: Orlin Ped=0, Femoral=0 9:08:02 Left Pulses: Orlin Ped=0, Femoral=0 Neurological: State=Alert, Ox3, ROMO Respiration: Resp=17 B/min, SpO2=96 %, O2=0 lpm 9:09:02 HR=95 bpm, CBBA=218/65 mmhg, SpO2=96.0 %, Resp=27 B/min, Pain=0, Jett=10, Diaz=2 9:09:30 Sheath removed; pressure applied to access site. 9:09:34 No case complications noted. 9:09:36 Cine recording checked. 9:10:25 Bedside Report will be given. 9:10:28 A Left Heart Cath was performed. 9:14:03 HR=88 bpm, DZZI=562/68 mmhg, SpO2=97.0 %, Resp=22 B/min, Pain=0, Jett=10, Diaz=2 9:17:05 Vitals capture stopped. 9:17:21 [facility] Study - Contrast Media Used In Study Contrast Total Opened (mL) Total Used (mL) Total Wasted (mL) Omnipaque 50 35 15 End Study - Maximum Contrast Load Max Contrast Load (mL) 315.5 End Study - Radiation Exposure Fluoro Time (minutes) 1.2 End Study - Patient Disposition Complications Transferred To Interventional Outcome No Telemetry Bed No attempt made
[2018-05-22] MEDS: Collagenase Oint 30 GM Tube TOPICAL SCH (10:33)
[2018-05-22] MEDS: Senna/Docusate Sodium 8.6/50 MG Tablet PO SCH ×2 (10:33→21:30)
--- NOTE | 2018-05-22 11:29 | MP ---
cc: Gael Veloz MD DATE OF OPERATION:05/22/18 PREOPERATIVE DIAGNOSES: 1. Thoracoabdominal aortic aneurysm. 2. Right lower extremity peripheral vascular disease with tissue loss. POSTOPERATIVE DIAGNOSES: 1. Thoracoabdominal aortic aneurysm. 2. Right lower extremity peripheral vascular disease with tissue loss. PROCEDURE PERFORMED: 1. Ultrasound-guided access to right common femoral artery. 2. Right lower extremity angiogram. ATTENDING SURGEON: Gael Veloz MD. ANESTHESIA: Local with sedation. INDICATIONS FOR PROCEDURE: Mr. Rincon is a 68-year-old gentleman with complicated occlusive and aneurysmal disease. He has right lower extremity tissue loss and severely depressed ABIs. He was taken to the operating room for diagnostic angiography. There is no prior catheterization-based imaging available for my review. DESCRIPTION OF PROCEDURE: Informed consent was obtained. The patient was taken to the operating room and placed supine on the operating table. An appropriate timeout was taken to ensure the patient's identity, the operative site, and procedure. The administration of antibiotics was not necessary as this is a clean proceed without planned implantation of any foreign object. Everyone in the room agreed with the timeout and we proceeded. His right groin was prepped and draped and locally anesthetized with 1% lidocaine. Under ultrasonographic guidance, a 21-gauge micropuncture needle was used to access the right common femoral artery. This was exchanged using Seldinger technique for a micropuncture sheath through which a right lower extremity angiogram was obtained. Micropuncture sheath was removed and pressure was held for hemostasis. There were no complications. I was present, scrubbed, and performed the entire procedure. INTERPRETATION: This patient has common iliac artery stenosis. The external iliac artery was patent, but diminutive likely just due to under perfusion. The common femoral artery is diseased. The profunda is patent. The superficial femoral artery is occluded. The popliteal artery is occluded. Profunda based collaterals reconstitute the below-knee popliteal artery and there was a posterior tibial artery runoff to the foot. Gael Veloz MD RJF/queenie , 09:16 AM , 09:21 AM MARÍA
--- NOTE | 2018-05-22 13:27 | P.PN ---
Subjective Interval history: Follow-up visit for right foot toe necrosis, peripheral vascular disease and cellulitis. Patient is seen and examined sitting in chair in no acute distress. He reports he had a procedure earlier and was told by Dr. Veloz that he would fix the circulation on his legs before addressing the aneurysm. He complains of some right foot tenderness today but thinks it may be related to the improvement in edema. Patient denies any SOB, cough, chest pain, headache, dizziness back pain, N/V/D. Physical Exam Vital signs: Vital Signs 05/21/18 15:39 05/21/18 20:00 05/22/18 00:00 Temperature 97.8 F 97.0 F L 97.1 F L Pulse Rate 94 H 101 H 97 H Respiratory Rate 17 20 18 Blood Pressure 132/67 141/65 H 132/65 Pulse Oximetry 97 92 L 98 05/22/18 07:41 05/22/18 09:29 05/22/18 11:36 Temperature 97.4 F L 97.5 F L Pulse Rate 84 90 Respiratory Rate 18 18 Blood Pressure 120/60 122/63 Pulse Oximetry 98 98 98 Intake & Output 05/21/18 05/22/18 05/22/18 18:59 06:59 18:59 Intake Total 1200 / 1200 Balance 1200 / 1200 Weight 69.6 kg Intake: IV 100 / 100 Rocephin Inj 1,000 MG In NS Inj 100 / 100 100 ML @ 200 mls/hr IV.SIG Q24H [facility] Rx#:[id number] Oral 1100 / 1100 Other: # Voids 3 3 Date of Last Bowel Movement 05/20/18 05/21/18 # Bowel Movements 2 Narrative: GENERAL: Well-nourished, well-developed male in no acute distress. SKIN: Warm and dry. HEENT: Pupils equal and round. Mucous membranes moist. NECK: Supple no tender, no JVD. HEART: Regular rate and rhythm, no murmur noted. LUNGS: Breath sounds clear to auscultation. ABDOMEN: +BS, soft, non-tender. EXTREMITIES: Right 1st and 2nd toes with distal necrosis, darker color. Mild swelling of dorsum of right foot with erythema over dorsum of right foot up to ankle. Right toes and dorsum of foot cold to touch. BLE pedal pulses nonpalpable. NEURO: Awake and alert. PSYCH: Appropriate mood and affect. Results - Labs CBC & Chem 7: 05/22/18 06:46 05/21/18 06:35 Laboratory Results - last 24 hr 05/22/18 06:46 WBC 7.2 RBC 4.64 Hgb 14.1 Hct 42.3 MCV 91.2 MCH 30.4 MCHC 33.3 RDW 15.0 Plt Count 207 MPV 8.5 Neut % (Auto) 73.1 H Lymph % (Auto) 14.9 [place] % (Auto) 7.1 Eos % (Auto) 4.1 H Baso % (Auto) 0.8 Neut # (Auto) 5.3 Lymph # (Auto) 1.1 [place] # (Auto) 0.5 Eos # (Auto) 0.3 Baso # (Auto) 0.1 WBC Differential . Differential Comment Auto diff final - Imaging Impressions Extremity Arterial Study 05/20/18 00:00 CONCLUSION: 1. Severe reduction of the ABIs bilaterally. Lower Extremity Ultrasound 05/21/18 00:00 CONCLUSION: 1. Venous mapping as above. Venous Doppler Study 05/21/18 00:00 CONCLUSION: 1. The study is negative for bilateral lower extremity deep venous thrombosis. Assessment and Plan - Assessment (1) Peripheral vascular disease Code(s): I73.9 - Peripheral vascular disease, unspecified Status: Acute (2) Ischemic ulcer Code(s): L98.499 - Non-pressure chronic ulcer of skin of other sites with unspecified severity Status: Acute - Plan 68 YOWM with longstanding h/o tobacco abuse and no regular medical care for many years presenting with right foot pain, 1st and 2nd toe necrosis, and erythema. 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 No evidence for leak or rupture at this time. 2. Moderate to severe focal stenosis of the right common iliac artery origin with diffusely aneurysmal right common iliac artery more distally measuring up to 13 mm. 3. Focal moderate to severe stenosis of the mid left common iliac artery exaggerated by tortuosity. 4. Occluded left external iliac artery and common femoral artery with reconstitution of the left profunda. 5. Superficial femoral arteries are occluded bilaterally with reconstitution of the popliteal arteries at the level of the knees. The popliteal arteries are small in caliber and diffusely diseased, particularly on the left. 6. Limited two-vessel on the right with occlusion of the anterior tibial artery and the proximal calf. Limited three-vessel runoff on the left. 7. Prominent apparent hydronephrosis of the left kidney which appears to be likely subacute to chronic extending to the UPJ of indeterminate etiology. 8. Additional ancillary findings, as above. - Consult vascular surgery following. Underwent US guided access to right common femoral artery and RLE angiogram 05/22. - Plans for right groin reconstruction, iliac stent and right LE bypass 05/28 -Discussed with 05/22, believes that CT findings are normal due to aneurysm. Patient does not need to be anticoagulated at the moment. Plans for reperfusion of right leg and most likely discharge and then a week after return for aneurysm repair. Juxtarenal fusiform aortic aneurysm with thrombus -Vascular surgery following, appreciate assistance -Cardiology consulted, appreciate further recommendations. Cardiology recommends continuing statin and ASA. Do not recommend BB in acute setting. Dilated Cardiomyopathy - EF 40-45% with moderate MVR. -Cardiology plans to start BB or ACEI after surgical revascularization. Cellulitis - No white count or fever but patient with erythema and edema over dorsum of right foot where ischemic ulcers are located - XR negative for bony abnormalities or osteo - ESR mildly elevated - Continue IV Rocephin. -Podiatry consulted, no surgical intervention at this point. 3. Tobacco abuse - Counseled on cessation DVT prophylaxis: Subcutaneous heparin Discussed Condition With: Patient, RN, and . Discharge Planning: Vascular surgery plans for surgery 05/28 then will most likely be DC home and come back for aortic aneurysm repair.
--- NOTE | 2018-05-22 21:00 | ECG ---
Date Performed: 05/22/2018 Time Performed: 05:48:46 PTAGE: 68 years EKG: Sinus rhythm . Possible anteroseptal infarct - age undetermined Lateral ST-T changes Abnormal ECG PREVIOUS TRACING : 09/11/2003 19.52 Compared to previous tracing, lateral ST-T changes and Q waves now present DOCTOR: Oksana Greenfield Interpretating Date/Time 05/22/2018 20:59:33
[2018-05-23] MEDS: Heparin - SQ 10,000 UNITS/ML Vial SQ SCH ×3 (01:00→18:04)
[2018-05-23] MEDS: Senna/Docusate Sodium 8.6/50 MG Tablet PO SCH ×3 (08:40→20:51)
[2018-05-23] MEDS: Collagenase Oint 30 GM Tube TOPICAL SCH (08:41)
--- NOTE | 2018-05-23 11:15 | P.PN ---
Subjective Interval history: Follow-up visit for right foot toe necrosis, peripheral vascular disease and cellulitis. Patient is seen and examined sitting up in chair in no acute distress. Denies any nausea, vomiting, diarrhea, cough, shortness of breath or chest pain. Discussed plan with patient regarding upcoming surgery on 05/28, verbalized understanding. Physical Exam Vital signs: Vital Signs 05/22/18 11:36 05/22/18 16:00 05/22/18 19:45 Temperature 97.5 F L 97.5 F L 97.9 F Pulse Rate 90 76 98 H Respiratory Rate 18 16 16 Blood Pressure 122/63 122/58 L 132/64 Pulse Oximetry 98 96 96 05/22/18 20:00 05/23/18 00:00 05/23/18 00:33 Temperature 97.8 F Pulse Rate 91 H Respiratory Rate 18 18 Blood Pressure 128/71 Pulse Oximetry 97 95 05/23/18 04:00 05/23/18 08:00 05/23/18 10:05 Temperature 97.6 F Pulse Rate 85 85 Respiratory Rate 18 Blood Pressure 120/66 Pulse Oximetry 95 95 Intake & Output 05/22/18 05/23/18 05/23/18 18:59 06:59 18:59 Intake Total 1100 / 1100 500 / 500 Balance 1100 / 1100 500 / 500 Weight 69.8 kg Intake: IV 100 / 100 Rocephin Inj 1,000 MG In NS Inj 100 / 100 100 ML @ 200 mls/hr IV.SIG Q24H [facility] Rx#:[id number] Oral 1000 / 1000 500 / 500 Other: # Voids 4 5 Date of Last Bowel Movement 05/22/18 05/22/18 # Bowel Movements 2 1 Narrative: GENERAL: Well-nourished, well-developed male in no acute distress. SKIN: Warm and dry. HEENT: Pupils equal and round. Mucous membranes moist. NECK: Supple no tender, no JVD. HEART: Regular rate and rhythm, no murmur noted. LUNGS: Breath sounds clear to auscultation. ABDOMEN: +BS, soft, non-tender. EXTREMITIES: Right 1st and 2nd toes with distal necrosis, darker color. Mild swelling of dorsum of right foot with erythema over dorsum of right foot up to ankle. Right toes and dorsum of foot cold to touch. BLE pedal pulses nonpalpable. NEURO: Awake and alert. PSYCH: Appropriate mood and affect. Results - Labs CBC & Chem 7: 05/22/18 06:46 05/21/18 06:35 Assessment and Plan - Assessment (1) Peripheral vascular disease Code(s): I73.9 - Peripheral vascular disease, unspecified Status: Acute (2) Ischemic ulcer Code(s): L98.499 - Non-pressure chronic ulcer of skin of other sites with unspecified severity Status: Acute - Plan 68 YOWM with longstanding h/o tobacco abuse and no regular medical care for many years presenting with right foot pain, 1st and 2nd toe necrosis, and erythema. 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 No evidence for leak or rupture at this time. 2. Moderate to severe focal stenosis of the right common iliac artery origin with diffusely aneurysmal right common iliac artery more distally measuring up to 13 mm. 3. Focal moderate to severe stenosis of the mid left common iliac artery exaggerated by tortuosity. 4. Occluded left external iliac artery and common femoral artery with reconstitution of the left profunda. 5. Superficial femoral arteries are occluded bilaterally with reconstitution of the popliteal arteries at the level of the knees. The popliteal arteries are small in caliber and diffusely diseased, particularly on the left. 6. Limited two-vessel on the right with occlusion of the anterior tibial artery and the proximal calf. Limited three-vessel runoff on the left. 7. Prominent apparent hydronephrosis of the left kidney which appears to be likely subacute to chronic extending to the UPJ of indeterminate etiology. 8. Additional ancillary findings, as above. - Consult vascular surgery following. Underwent US guided access to right common femoral artery and RLE angiogram 05/22. - Plans for right groin reconstruction, iliac stent and right LE bypass 05/28. Discussed with JUAN Negrete patient to remain inpatient until 05/28 for surgery. -Discussed with 05/22, believes that CT findings are normal due to aneurysm. Patient does not need to be anticoagulated at the moment. Plans for reperfusion of right leg and most likely discharge and then a week after return for aneurysm repair. Juxtarenal fusiform aortic aneurysm with thrombus -Vascular surgery following, appreciate assistance -Cardiology consulted, appreciate further recommendations. Cardiology recommends continuing statin and ASA. Do not recommend BB in acute setting. Dilated Cardiomyopathy - EF 40-45% with moderate MVR. -Cardiology plans to start BB or ACEI after surgical revascularization. Cellulitis - No white count or fever but patient with erythema and edema over dorsum of right foot where ischemic ulcers are located - XR negative for bony abnormalities or osteo - ESR mildly elevated - Continue IV Rocephin. -Podiatry consulted, no surgical intervention at this point. 3. Tobacco abuse - Counseled on cessation DVT prophylaxis: Subcutaneous heparin Discussed Condition With: Patient and JUAN Negrete Discharge Planning: Vascular surgery plans for surgery 05/28 then will most likely be DC home and come back for aortic aneurysm repair.
[2018-05-24] MEDS: Heparin - SQ 10,000 UNITS/ML Vial SQ SCH ×3 (02:37→16:33)
[2018-05-24] MEDS: Senna/Docusate Sodium 8.6/50 MG Tablet PO SCH ×2 (08:39→21:28)
[2018-05-24] MEDS: Collagenase Oint 30 GM Tube TOPICAL SCH (16:35)
--- NOTE | 2018-05-24 17:51 | P.PN ---
Subjective Interval history: Follow-up visit for right foot toe necrosis, peripheral vascular disease and cellulitis. Patient seen and examined in his room in no acute distress. He complains of right foot pain however believes that it may be related to the fact that his pain medication was delayed earlier. He denies any fevers, chills , nausea, vomiting, diarrhea, cough, shortness of breath, chest pain or dizziness. Physical Exam Vital signs: Vital Signs 05/23/18 18:27 05/23/18 20:00 05/24/18 00:00 Temperature 97.3 F L 97.3 F L Pulse Rate 86 88 Respiratory Rate 19 20 Blood Pressure 128/68 114/55 L Pulse Oximetry 98 96 95 05/24/18 04:00 05/24/18 08:00 05/24/18 12:00 Temperature 98.5 F 97.1 F L 97.6 F Pulse Rate 87 85 86 Respiratory Rate 20 17 18 Blood Pressure 133/64 122/61 122/60 Pulse Oximetry 97 99 98 05/24/18 12:12 05/24/18 16:00 Temperature 97.9 F Pulse Rate 85 Respiratory Rate 18 Blood Pressure 110/61 Pulse Oximetry 98 97 Intake & Output 05/23/18 05/24/18 05/24/18 18:59 06:59 18:59 Intake Total 720 / 720 800 / 800 100 / 100 Balance 720 / 720 800 / 800 100 / 100 Weight 69.9 kg Intake: IV 100 / 100 100 / 100 Rocephin Inj 1,000 MG In NS Inj 100 / 100 100 / 100 100 ML @ 200 mls/hr IV.SIG Q24H [facility] Rx#:[id number] Oral 720 / 720 700 / 700 Other: # Voids 2 4 Date of Last Bowel Movement 05/22/18 # Bowel Movements 1 Narrative: GENERAL: Well-nourished, well-developed male in no acute distress. SKIN: Warm and dry. HEENT: Pupils equal and round. Mucous membranes moist. NECK: Supple no tender, no JVD. HEART: Regular rate and rhythm, no murmur noted. LUNGS: Breath sounds clear to auscultation. ABDOMEN: +BS, soft, non-tender. EXTREMITIES: Right 1st and 2nd toes with distal necrosis on tip of toes. Mild swelling of dorsum of right foot with much improved erythema. Right toes and dorsum of foot cold to touch. BLE pedal pulses nonpalpable. NEURO: Awake and alert. PSYCH: Appropriate mood and affect. Results - Labs CBC & Chem 7: 05/22/18 06:46 05/21/18 06:35 Assessment and Plan - Assessment (1) Peripheral vascular disease Code(s): I73.9 - Peripheral vascular disease, unspecified Status: Acute (2) Ischemic ulcer Code(s): L98.499 - Non-pressure chronic ulcer of skin of other sites with unspecified severity Status: Acute - Plan 68 YOWM with longstanding h/o tobacco abuse and no regular medical care for many years presenting with right foot pain, 1st and 2nd toe necrosis, and erythema. 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 No evidence for leak or rupture at this time. 2. Moderate to severe focal stenosis of the right common iliac artery origin with diffusely aneurysmal right common iliac artery more distally measuring up to 13 mm. 3. Focal moderate to severe stenosis of the mid left common iliac artery exaggerated by tortuosity. 4. Occluded left external iliac artery and common femoral artery with reconstitution of the left profunda. 5. Superficial femoral arteries are occluded bilaterally with reconstitution of the popliteal arteries at the level of the knees. The popliteal arteries are small in caliber and diffusely diseased, particularly on the left. 6. Limited two-vessel on the right with occlusion of the anterior tibial artery and the proximal calf. Limited three-vessel runoff on the left. 7. Prominent apparent hydronephrosis of the left kidney which appears to be likely subacute to chronic extending to the UPJ of indeterminate etiology. 8. Additional ancillary findings, as above. - Consult vascular surgery following. Underwent US guided access to right common femoral artery and RLE angiogram 05/22. - Plans for right groin reconstruction, iliac stent and right LE bypass 05/28. Discussed with JUAN Negrete patient to remain inpatient until 05/28 for surgery. -Discussed with 05/22, believes that CT findings are normal due to aneurysm. Patient does not need to be anticoagulated at the moment. Plans for reperfusion of right leg and most likely discharge and then a week after return for aneurysm repair. Juxtarenal fusiform aortic aneurysm with thrombus -Vascular surgery following, appreciate assistance -Cardiology consulted, appreciate further recommendations. Cardiology recommends continuing statin and ASA. Do not recommend BB in acute setting. Dilated Cardiomyopathy - EF 40-45% with moderate MVR. -Cardiology plans to start BB or ACEI after surgical revascularization. Cellulitis - No white count or fever but patient with erythema and edema over dorsum of right foot where ischemic ulcers are located. Trace edema remains however erythema greatly improved. - XR negative for bony abnormalities or osteo - ESR mildly elevated -Patient to complete IV Rocephin 05/24 -Podiatry consulted, no surgical intervention at this point. 3. Tobacco abuse - Counseled on cessation DVT prophylaxis: Subcutaneous heparin Discussed Condition With: Patient. Discharge Planning: Vascular surgery plans for surgery 05/28 then will most likely be DC home and come back for aortic aneurysm repair.
[2018-05-25] MEDS: Heparin - SQ 10,000 UNITS/ML Vial SQ SCH ×3 (01:37→16:50)
[2018-05-25] MEDS: Collagenase Oint 30 GM Tube TOPICAL SCH (08:47)
[2018-05-25] MEDS: Senna/Docusate Sodium 8.6/50 MG Tablet PO SCH ×2 (08:47→20:14)
--- NOTE | 2018-05-25 11:29 | P.PN ---
Subjective Interval history: Follow-up visit for right foot toe necrosis, peripheral vascular disease and cellulitis. Patient is seen and examined sitting up in recliner in no acute distress. He continues to complain of right foot pain and tenderness especially when walking. Denies any fevers, chills, nausea, vomiting, diarrhea , cough or shortness of breath. Physical Exam Vital signs: Vital Signs 05/24/18 12:00 05/24/18 12:12 05/24/18 16:00 Temperature 97.6 F 97.9 F Pulse Rate 86 85 Respiratory Rate 18 18 Blood Pressure 122/60 110/61 Pulse Oximetry 98 98 97 05/24/18 17:47 05/24/18 20:00 05/25/18 00:00 Temperature 97.9 F 97.3 F L Pulse Rate 95 H 79 Respiratory Rate 18 16 Blood Pressure 131/62 109/55 L Pulse Oximetry 97 97 94 L 05/25/18 04:00 05/25/18 08:00 Temperature 97.9 F 98.2 F Pulse Rate 85 85 Respiratory Rate 18 16 Blood Pressure 147/66 H 117/65 Pulse Oximetry 97 94 L Intake & Output 05/24/18 05/25/18 05/25/18 18:59 06:59 18:59 Intake Total 925 / 925 960 / 960 Balance 925 / 925 960 / 960 Weight 68.8 kg Intake: IV 100 / 100 Rocephin Inj 1,000 MG In NS Inj 100 / 100 100 ML @ 200 mls/hr IV.SIG Q24H [facility] Rx#:[id number] Oral 825 / 825 960 / 960 Other: # Voids 6 4 Date of Last Bowel Movement 05/24/18 # Bowel Movements 1 Narrative: GENERAL: Well-nourished, well-developed male in no acute distress. SKIN: Warm and dry. HEENT: Pupils equal and round. Mucous membranes moist. NECK: Supple no tender, no JVD. HEART: Regular rate and rhythm, no murmur noted. LUNGS: Breath sounds clear to auscultation. ABDOMEN: +BS, soft, non-tender. EXTREMITIES: Right 1st and 2nd toes with distal necrosis on tip of toes. Mild swelling of dorsum of right foot with much improved erythema. Right toes and dorsum of foot cold to touch. BLE pedal pulses nonpalpable. NEURO: Awake and alert. PSYCH: Appropriate mood and affect. Results - Labs CBC & Chem 7: 05/22/18 06:46 05/21/18 06:35 Assessment and Plan - Assessment (1) Peripheral vascular disease Code(s): I73.9 - Peripheral vascular disease, unspecified Status: Acute (2) Ischemic ulcer Code(s): L98.499 - Non-pressure chronic ulcer of skin of other sites with unspecified severity Status: Acute - Plan 68 YOWM with longstanding h/o tobacco abuse and no regular medical care for many years presenting with right foot pain, 1st and 2nd toe necrosis, and erythema. 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 No evidence for leak or rupture at this time. 2. Moderate to severe focal stenosis of the right common iliac artery origin with diffusely aneurysmal right common iliac artery more distally measuring up to 13 mm. 3. Focal moderate to severe stenosis of the mid left common iliac artery exaggerated by tortuosity. 4. Occluded left external iliac artery and common femoral artery with reconstitution of the left profunda. 5. Superficial femoral arteries are occluded bilaterally with reconstitution of the popliteal arteries at the level of the knees. The popliteal arteries are small in caliber and diffusely diseased, particularly on the left. 6. Limited two-vessel on the right with occlusion of the anterior tibial artery and the proximal calf. Limited three-vessel runoff on the left. 7. Prominent apparent hydronephrosis of the left kidney which appears to be likely subacute to chronic extending to the UPJ of indeterminate etiology. 8. Additional ancillary findings, as above. - Consult vascular surgery following. Underwent US guided access to right common femoral artery and RLE angiogram 05/22. - Plans for right groin reconstruction, iliac stent and right LE bypass 05/28. Discussed with JUAN Negrete patient to remain inpatient until 05/28 for surgery. -Discussed with 05/22, believes that CT findings are normal due to aneurysm. Patient does not need to be anticoagulated at the moment. Plans for reperfusion of right leg and most likely discharge and then a week after return for aneurysm repair. -Increase [place] to 10mg every 4 hours as needed for pain. Juxtarenal fusiform aortic aneurysm with thrombus -Vascular surgery following, appreciate assistance -Cardiology consulted, appreciate further recommendations. Cardiology recommends continuing statin and ASA. Do not recommend BB in acute setting. Dilated Cardiomyopathy - EF 40-45% with moderate MVR. -Cardiology plans to start BB or ACEI after surgical revascularization. Cellulitis - No white count or fever but patient with erythema and edema over dorsum of right foot where ischemic ulcers are located. Trace edema remains however erythema greatly improved. - XR negative for bony abnormalities or osteo - ESR mildly elevated -Patient to complete IV Rocephin 05/24, erythema greatly improved, patient afebrile. -Podiatry consulted, no surgical intervention at this point. 3. Tobacco abuse - Counseled on cessation DVT prophylaxis: Subcutaneous heparin Discussed Condition With: Patient and RN. Discharge Planning: Vascular surgery plans for surgery 05/28 then will most likely be DC home and come back for aortic aneurysm repair.
[2018-05-26] MEDS: Heparin - SQ 10,000 UNITS/ML Vial SQ SCH ×3 (00:20→16:06)
[2018-05-26] MEDS: Senna/Docusate Sodium 8.6/50 MG Tablet PO SCH ×2 (10:21→20:13)
[2018-05-26] MEDS: Collagenase Oint 30 GM Tube TOPICAL SCH (10:21)
--- NOTE | 2018-05-26 12:41 | P.PNPOD ---
Subjective Interval history: Patient seen bedside resting comfortably. Denies any nausea vomiting fevers or chills. States he has scheduled vascular surgery intervention with Dr. Veloz on Sunday. Physical Exam Vital signs: Vital Signs 05/25/18 16:00 05/25/18 19:40 05/25/18 20:00 Temperature 97.7 F 98.1 F Pulse Rate 93 H 86 91 H Respiratory Rate 18 18 Blood Pressure 145/68 H 127/65 Pulse Oximetry 97 97 05/26/18 00:00 05/26/18 04:00 05/26/18 08:00 Temperature 97.8 F 97.5 F L 97.1 F L Pulse Rate 87 88 82 Respiratory Rate 18 18 18 Blood Pressure 119/61 139/65 128/60 Pulse Oximetry 96 97 99 Intake & Output 05/25/18 05/26/18 05/26/18 18:59 06:59 18:59 Intake Total 1800 / 1800 Balance 1800 / 1800 Weight 69.9 kg Intake: Oral 1800 / 1800 Other: # Voids 5 3 Date of Last Bowel Movement 05/24/18 # Bowel Movements 1 1 Narrative: Right foot distal hallux and distal second digit eschar noted. No surrounding erythema or edema noted. Stable dry gangrene. Thin shiny atrophic skin, nonpalpable pulses. Capillary refill time x5 within normal limits to right foot Medications and Allergies Active Medications: Active Medications Acetaminophen (Tylenol) 650 mg PO Q4H PRN PRN Reason: Temp > 100.4 Hydrocodone Bitart/Acetaminophen ([place] 10/325) 1 tab PO Q4H PRN PRN Reason: Pain 2-10 Last Admin: 05/26/18 00:24 Dose: 1 tab Al Hydroxide/Mg Hydroxide (Milk Of Magnsusan Liq) 30 ml PO Q12H PRN PRN Reason: Mild Constipation Aspirin (Ecotrin) 81 mg PO DAILY [facility] Last Admin: 05/26/18 10:20 Dose: 81 mg Atorvastatin Calcium (Lipitor) 40 mg PO HS [facility] Last Admin: 05/25/18 20:14 Dose: 40 mg Bisacodyl (Dulcolax Supp) 10 mg RECTAL DAILY PRN PRN Reason: SEVERE CONSITIPATION Collagenase (Santyl Oint) 1 applicatio TOPICAL DAILY [facility] Last Admin: 05/26/18 10:21 Dose: 1 applicatio Heparin Sodium (Porcine) (Heparin Inj) 5,000 units SQ Q8H [facility] Last Admin: 05/26/18 10:20 Dose: 5,000 units Lactulose (Lactulose Liq) 30 ml PO DAILY PRN PRN Reason: SEVERE CONSITIPATION Morphine Sulfate (Morphine Inj) 2 mg IV.PUSH Q4H PRN PRN Reason: BREAKTHROUGH PAIN Ondansetron HCl (Zofran Inj) 4 mg IV.PUSH Q6H PRN PRN Reason: NAUSEA OR VOMITING Senna/Docusate Sodium (Yoana-Colace) 1 tab PO BID [facility] Last Admin: 05/26/18 10:21 Dose: 1 tab Sennosides (Senokot) 17.2 mg PO Q12H PRN PRN Reason: Moderate Constipation Sodium Chloride (Ns Flush) 2 ml IV.FLUSH BID [facility] Last Admin: 05/26/18 10:21 Dose: 2 ml Sodium Chloride (Ns Flush) 2 ml IV.FLUSH UNSCH PRN PRN Reason: FLUSH AFTER USING IV ACCESS Allergies Allergy/AdvReac Type Severity Reaction Status Date / Time No Known Allergies Allergy Verified 05/20/18 11:36 Home Medications Medication Instructions Recorded Confirmed Type No Known Home Medications 05/20/18 05/20/18 History Results - Labs CBC & Chem 7: 05/22/18 06:46 05/21/18 06:35 Assessment and Plan - Plan 68-year-old male with right foot hallux and second digit distal eschar noted Patient to have vascular intervention done early next week Stable digital ulcers which should resolve after vascular intervention Would recommend follow-up with head waiter/waitress banquet Will place orders for daily dressing changes, would recommend Betadine times 3 days secondary to maceration and then Santyl can be continued
--- NOTE | 2018-05-26 17:09 | P.PN ---
Subjective Interval history: Follow-up visit for right foot toe necrosis and peripheral vascular disease.. Reports that pain is better controlled, did not know that he was supposed to ask for pain medication as this is scheduled on an as-needed basis. Denies any fevers, chills, nausea, vomiting, diarrhea, cough or shortness of breath. He voices no acute concerns at the moment. Physical Exam Vital signs: Vital Signs 05/25/18 19:40 05/25/18 20:00 05/26/18 00:00 Temperature 98.1 F 97.8 F Pulse Rate 86 91 H 87 Respiratory Rate 18 18 Blood Pressure 127/65 119/61 Pulse Oximetry 97 96 05/26/18 04:00 05/26/18 08:00 05/26/18 12:00 Temperature 97.5 F L 97.1 F L 97.4 F L Pulse Rate 88 82 85 Respiratory Rate 18 18 16 Blood Pressure 139/65 128/60 127/61 Pulse Oximetry 97 99 98 05/26/18 15:51 05/26/18 15:52 Temperature Pulse Rate Respiratory Rate 18 18 Blood Pressure Pulse Oximetry Intake & Output 05/25/18 05/26/18 05/26/18 18:59 06:59 18:59 Intake Total 1800 / 1800 Balance 1800 / 1800 Weight 69.9 kg Intake: Oral 1800 / 1800 Other: # Voids 5 3 Date of Last Bowel Movement 05/24/18 # Bowel Movements 1 1 Narrative: GENERAL: Well-nourished, well-developed male in no acute distress. SKIN: Warm and dry. HEENT: Pupils equal and round. Mucous membranes moist. NECK: Supple no tender. HEART: Regular rate and rhythm, no murmur noted. LUNGS: Breath sounds clear to auscultation. ABDOMEN: +BS, soft, non-tender. EXTREMITIES: Right 1st and 2nd toes with distal necrosis on tip of toes. Mild swelling of dorsum of right foot with much improved erythema. Right toes and dorsum of foot cold to touch. BLE pedal pulses nonpalpable. NEURO: Awake and alert. PSYCH: Appropriate mood and affect. Results - Labs CBC & Chem 7: 05/22/18 06:46 05/21/18 06:35 Assessment and Plan - Assessment (1) Peripheral vascular disease Code(s): I73.9 - Peripheral vascular disease, unspecified Status: Acute (2) Ischemic ulcer Code(s): L98.499 - Non-pressure chronic ulcer of skin of other sites with unspecified severity Status: Acute - Plan 68 YOWM with longstanding h/o tobacco abuse and no regular medical care for many years presenting with right foot pain, 1st and 2nd toe necrosis, and erythema. 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 No evidence for leak or rupture at this time. 2. Moderate to severe focal stenosis of the right common iliac artery origin with diffusely aneurysmal right common iliac artery more distally measuring up to 13 mm. 3. Focal moderate to severe stenosis of the mid left common iliac artery exaggerated by tortuosity. 4. Occluded left external iliac artery and common femoral artery with reconstitution of the left profunda. 5. Superficial femoral arteries are occluded bilaterally with reconstitution of the popliteal arteries at the level of the knees. The popliteal arteries are small in caliber and diffusely diseased, particularly on the left. 6. Limited two-vessel on the right with occlusion of the anterior tibial artery and the proximal calf. Limited three-vessel runoff on the left. 7. Prominent apparent hydronephrosis of the left kidney which appears to be likely subacute to chronic extending to the UPJ of indeterminate etiology. 8. Additional ancillary findings, as above. - Consult vascular surgery following. Underwent US guided access to right common femoral artery and RLE angiogram 05/22. - Plans for right groin reconstruction, iliac stent and right LE bypass 05/28. Discussed with JUAN Negrete patient to remain inpatient until 05/28 for surgery. -Discussed with 05/22, believes that CT findings are normal due to aneurysm. Patient does not need to be anticoagulated at the moment. Plans for reperfusion of right leg and most likely discharge and then a week after return for aneurysm repair. -Continue [place] to 10mg every 4 hours as needed for pain, pain better controlled. Juxtarenal fusiform aortic aneurysm with thrombus -Vascular surgery following, appreciate assistance -Cardiology consulted, appreciate further recommendations. Cardiology recommends continuing statin and ASA. Do not recommend BB in acute setting. Dilated Cardiomyopathy - EF 40-45% with moderate MVR. -Cardiology plans to start BB or ACEI after surgical revascularization. Cellulitis - No white count or fever but patient with erythema and edema over dorsum of right foot where ischemic ulcers are located. Trace edema remains however erythema greatly improved. - XR negative for bony abnormalities or osteo - ESR mildly elevated -Patient to complete IV Rocephin 05/24, erythema greatly improved, patient afebrile. -Podiatry consulted, no surgical intervention at this point. Recommendations for Betadine TID then Santyl. 3. Tobacco abuse - Counseled on cessation DVT prophylaxis: Subcutaneous heparin Discussed Condition With: Patient and chief scientist Planning: Vascular surgery plans for surgery 05/28 then will most likely be DC home and come back for aortic aneurysm repair.
[2018-05-27] MEDS: Heparin - SQ 10,000 UNITS/ML Vial SQ SCH ×3 (00:59→16:51)
[2018-05-27] MEDS: Senna/Docusate Sodium 8.6/50 MG Tablet PO SCH ×2 (08:37→20:43)
[2018-05-27] MEDS: Collagenase Oint 30 GM Tube TOPICAL SCH (08:43)
--- NOTE | 2018-05-27 12:36 | P.PNVS ---
- Pre-operative Note Planned Procedure: Right Lower extremity distal bypass/Angiogram Interval History: 68/M with a PMH of combined aneurysmal and occlusive vascular disease Labs: WBC 7.2 th/mm3 (4.0-11.0) 05/22/18 06:46 RBC 4.64 mil/mm3 (4.50-5.90) 05/22/18 06:46 Hgb 14.1 gm/dL (13.0-17.0) 05/22/18 06:46 Hct 42.3 % (39.0-51.0) 05/22/18 06:46 MCV 91.2 fL (80.0-100.0) 05/22/18 06:46 MCH 30.4 pg (27.0-34.0) 05/22/18 06:46 MCHC 33.3 % (32.0-36.0) 05/22/18 06:46 RDW 15.0 % (11.6-17.2) 05/22/18 06:46 Plt Count 207 th/mm3 (150-450) 05/22/18 06:46 MPV 8.5 fL (7.0-11.0) 05/22/18 06:46 INR 1.1 Ratio 05/20/18 11:17 Sodium 141 meq/L (136-145) 05/21/18 06:35 Potassium 4.1 meq/L (3.5-5.1) 05/21/18 06:35 Chloride 108 meq/L (98-107) H 05/21/18 06:35 Carbon Dioxide 25.5 meq/L (21.0-32.0) 05/21/18 06:35 Anion Gap 8 meq/L (5-15) 05/21/18 06:35 BUN 15 mg/dL (7-18) 05/21/18 06:35 Random Glucose 93 mg/dL (74-106) 05/21/18 06:35 Calcium 9.5 mg/dL (8.5-10.1) 05/21/18 06:35 Blood: T&C 2U PRBC Imaging: ITS Impressions Aorta w/Runoff CTA 05/20/18 00:00 CONCLUSION: 1. 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 No evidence for leak or rupture at this time. 2. Moderate to severe focal stenosis of the right common iliac artery origin with diffusely aneurysmal right common iliac artery more distally measuring up to 13 mm. 3. Focal moderate to severe stenosis of the mid left common iliac artery exaggerated by tortuosity. 4. Occluded left external iliac artery and common femoral artery with reconstitution of the left profunda. 5. Superficial femoral arteries are occluded bilaterally with reconstitution of the popliteal arteries at the level of the knees. The popliteal arteries are small in caliber and diffusely diseased, particularly on the left. 6. Limited two-vessel on the right with occlusion of the anterior tibial artery and the proximal calf. Limited three-vessel runoff on the left. 7. Prominent apparent hydronephrosis of the left kidney which appears to be likely subacute to chronic extending to the UPJ of indeterminate etiology. 8. Additional ancillary findings, as above. Extremity Arterial Study 05/20/18 00:00 CONCLUSION: 1. Severe reduction of the ABIs bilaterally. Foot X-Ray 05/20/18 10:55 CONCLUSION: Negative for an acute process Lower Extremity Ultrasound 05/21/18 00:00 CONCLUSION: 1. Venous mapping as above. Venous Doppler Study 05/21/18 00:00 CONCLUSION: 1. The study is negative for bilateral lower extremity deep venous thrombosis. Post-operative Destination: [facility] Operative site marked: Yes Consent: Informed consent has been obtained from Kain Rincon. I have explained the procedure in detail and discussed the risks, benefits, and potential complications. All questions have been answered.
--- NOTE | 2018-05-27 13:40 | P.PN ---
Subjective Interval history: Follow-up visit for right foot toe necrosis, peripheral vascular disease and cellulitis. Patient is seen and examined ambulating in his room in no acute distress. He reports the pain is well controlled and denies any fevers, chills , nausea or vomiting. Is aware that he will be having surgery tomorrow, voices no other acute concerns at the moment. Physical Exam Vital signs: Vital Signs 05/26/18 15:51 05/26/18 15:52 05/26/18 16:00 Temperature 97.4 F L Pulse Rate 87 Respiratory Rate 18 18 18 Blood Pressure 131/66 Pulse Oximetry 95 05/26/18 17:18 05/26/18 19:45 05/26/18 20:00 Temperature 98.6 F Pulse Rate 87 86 Respiratory Rate 18 16 Blood Pressure 115/59 L Pulse Oximetry 95 05/27/18 00:00 05/27/18 04:00 05/27/18 08:00 Temperature 98.6 F 99.2 F 97.8 F Pulse Rate 86 83 87 Respiratory Rate 16 16 18 Blood Pressure 126/60 115/61 132/64 Pulse Oximetry 93 L 95 96 05/27/18 11:43 05/27/18 12:00 Temperature 97.3 F L Pulse Rate 85 Respiratory Rate 16 Blood Pressure 123/59 L Pulse Oximetry 98 98 Intake & Output 05/26/18 05/27/18 05/27/18 18:59 06:59 18:59 Intake Total 1800 / 1800 Balance 1800 / 1800 Weight 70.3 kg Intake: Oral 1800 / 1800 Other: # Voids 4 4 Date of Last Bowel Movement 05/24/18 # Bowel Movements 1 Narrative: GENERAL: Well-nourished, well-developed male in no acute distress. SKIN: Warm and dry. HEENT: Pupils equal and round. Mucous membranes moist. NECK: Supple no tender. HEART: Regular rate and rhythm, no murmur noted. LUNGS: Breath sounds clear to auscultation. ABDOMEN: +BS, soft, non-tender. EXTREMITIES: Right 1st and 2nd toes with distal necrosis on tip of toes. Mild swelling of dorsum of right foot with much improved erythema. Right toes and dorsum of foot cold to touch. BLE pedal pulses nonpalpable. NEURO: Awake and alert. PSYCH: Appropriate mood and affect. Results - Labs CBC & Chem 7: 05/22/18 06:46 05/21/18 06:35 Laboratory Results - last 24 hr 05/27/18 10:15 Blood Type A Positive Blood Type Recheck Required Antibody Screen Negative Assessment and Plan - Assessment (1) Peripheral vascular disease Code(s): I73.9 - Peripheral vascular disease, unspecified Status: Acute (2) Ischemic ulcer Code(s): L98.499 - Non-pressure chronic ulcer of skin of other sites with unspecified severity Status: Acute - Plan 68 YOWM with longstanding h/o tobacco abuse and no regular medical care for many years presenting with right foot pain, 1st and 2nd toe necrosis, and erythema. 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 No evidence for leak or rupture at this time. 2. Moderate to severe focal stenosis of the right common iliac artery origin with diffusely aneurysmal right common iliac artery more distally measuring up to 13 mm. 3. Focal moderate to severe stenosis of the mid left common iliac artery exaggerated by tortuosity. 4. Occluded left external iliac artery and common femoral artery with reconstitution of the left profunda. 5. Superficial femoral arteries are occluded bilaterally with reconstitution of the popliteal arteries at the level of the knees. The popliteal arteries are small in caliber and diffusely diseased, particularly on the left. 6. Limited two-vessel on the right with occlusion of the anterior tibial artery and the proximal calf. Limited three-vessel runoff on the left. 7. Prominent apparent hydronephrosis of the left kidney which appears to be likely subacute to chronic extending to the UPJ of indeterminate etiology. 8. Additional ancillary findings, as above. - Consult vascular surgery following. Underwent US guided access to right common femoral artery and RLE angiogram 05/22. - Plans for right groin reconstruction, iliac stent and right LE bypass 05/28. Discussed with JUAN Negrete patient to remain inpatient until 05/28 for surgery. -Discussed with 05/22, believes that CT findings are normal due to aneurysm. Patient does not need to be anticoagulated at the moment. Plans for reperfusion of right leg and most likely discharge and then a week after return for aneurysm repair. -Continue [place] to 10mg every 4 hours as needed for pain, pain better controlled. Juxtarenal fusiform aortic aneurysm with thrombus -Vascular surgery following, appreciate assistance -Cardiology consulted, appreciate further recommendations. Cardiology recommends continuing statin and ASA. Do not recommend BB in acute setting. Dilated Cardiomyopathy - EF 40-45% with moderate MVR. -Cardiology plans to start BB or ACEI after surgical revascularization. Cellulitis - No white count or fever but patient with erythema and edema over dorsum of right foot where ischemic ulcers are located. Trace edema remains however erythema greatly improved. - XR negative for bony abnormalities or osteo - ESR mildly elevated -Patient to complete IV Rocephin 05/24, erythema greatly improved, patient afebrile. -Podiatry consulted, no surgical intervention at this point. Recommendations for Betadine TID then Santyl. 3. Tobacco abuse - Counseled on cessation DVT prophylaxis: Subcutaneous heparin Discussed Condition With: Patient and family life educator Planning: Vascular surgery plans for surgery 05/28 then will most likely be DC home and come back for aortic aneurysm repair.
[2018-05-28] MEDS: Heparin - SQ 10,000 UNITS/ML Vial SQ SCH ×3 (01:00→16:43)
[2018-05-28] MEDS ORDERED: Chlorhexidine Gluconate 2% 1 Pack (2 Cloths) TOPICAL ONE (01:49)
[2018-05-28] MEDS ORDERED: Thrombin Topical 20,000 UNIT Spray Kit TOPICAL ONE (06:43)
[2018-05-28] MEDS ORDERED: Bupivacaine 0.5% Inj 50 ML MDV Vial ONE (06:43)
[2018-05-28] MEDS ORDERED: Heparin/NS PF Inj 500 ML ONE (06:43)
[2018-05-28] MEDS ORDERED: Heparin 10,000 UNITS/10 ML Vial (for IV use) ONE (06:43)
[2018-05-28] MEDS ORDERED: Protamine Sulfate Inj 50 MG/5 ML Vial ONE (06:43)
[2018-05-28] MEDS: Senna/Docusate Sodium 8.6/50 MG Tablet PO SCH ×2 (09:16→20:00)
[2018-05-28 09:28] LABS: INR 1.1 Ratio; Prothrombin Time 10.7 sec (9.8-11.6)
[2018-05-28 09:36] LABS: Baso % (Auto) 0.7 % (0.0-2.0); Eos # (Auto) 0.3 th/mm3 (0.0-0.4); Eos % (Auto) 4.8 % (0.0-4.0); Hematocrit 39.3 % (39.0-51.0); Hemoglobin 13.1 gm/dL (13.0-17.0); Lymph # (Auto) 0.9 th/mm3 (1.0-4.8); Mean Corpuscular HGB Conc 33.2 % (32.0-36.0); Mean Corpuscular Hemoglobin 30.4 pg (27.0-34.0); Mean Corpuscular Volume 91.5 fL (80.0-100.0); Mean Platelet Volume 8.8 fL (7.0-11.0); Mono # (Auto) 0.5 th/mm3 (0.0-0.9); Mono % (Auto) 7.2 % (0.0-8.0); Neut % (Auto) 74.3 % (16.0-70.0); Platelet Count 222 th/mm3 (150-450); Red Cell Distribution Width 14.8 % (11.6-17.2); White Blood Count 6.8 th/mm3 (4.0-11.0)
[2018-05-28 09:55] LABS: Calcium 9.5 mg/dL (8.5-10.1); Carbon Dioxide 25.1 meq/L (21.0-32.0); Potassium 3.9 meq/L (3.5-5.1)
[2018-05-28] MEDS ORDERED: Iohexol 300 MG/ML 50 ML Vial (for Rad Diag) IVCONTRAST ONE (12:18)
[2018-05-28] MEDS ORDERED: Bisacodyl 10 MG Supp RECTAL PRN (13:04)
--- NOTE | 2018-05-28 13:04 | P.OP ---
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 Aortogram 2. R CINDY stent (8x27 VisiPro) 3. R EIA stent (8x80 Protege) 4. R ilioprofunda bypass (8mm Dacron) for femoral aneurysm 5. R fem-BK pop bypass with rR GSV Implants: 1. Visipro 2. Protege 3. 8mm Dacron Anesthesia: GETA Surgeon: Gael Veloz MD Control Analyst: Yayo Sears Estimated blood loss (mL): 100 IV fluids (mL): 2,700 Urine output (mL): 150 Pathology: none sent Operation and Findings: 1. Femoral aneurysm, excised 2. CINDY and EIA stenosis, treated with stents 3. Strong PT signal after bypass
[2018-05-28] MEDS ORDERED: fentaNYL Citrate Inj 100 MCG/2 ML Ampul ONE (13:34)
[2018-05-28] MEDS: *morphine SULFATE 4 MG/ML PERIprocedure ONLY ONE ×4 (14:30→15:43)
[2018-05-28] MEDS: Collagenase Oint 30 GM Tube TOPICAL SCH (15:13)
[2018-05-28] MEDS: Morphine Inj 4 MG/ML Vial IV.PUSH PRN ×3 (15:32→22:27)
--- NOTE | 2018-05-28 16:14 | P.PNVS ---
Subjective Post Op Day #: 0 Procedure: R iliofemoral bypass, R CINDY and EIA stents, R fem-BK pop with GSV Subjective/Hospital Course: resting comfortably in bed no acute distress still slightly sleepy Objective Vital Signs / I&O: Vital Signs 05/27/18 20:00 05/27/18 20:44 05/27/18 21:14 Temperature 97.9 F Pulse Rate 84 Respiratory Rate 17 18 18 Blood Pressure 127/67 Pulse Oximetry 95 05/28/18 00:00 05/28/18 00:11 05/28/18 04:00 Temperature 97.7 F Pulse Rate 83 83 77 Respiratory Rate 17 17 Blood Pressure 116/59 L 105/57 L Pulse Oximetry 96 95 05/28/18 07:50 05/28/18 13:24 05/28/18 13:30 Temperature 97.1 F L 96.2 F L Pulse Rate 84 72 73 Respiratory Rate 17 13 13 Blood Pressure 121/74 Pulse Oximetry 99 99 99 05/28/18 13:45 05/28/18 13:46 05/28/18 14:00 Temperature Pulse Rate 75 82 Respiratory Rate 13 16 Blood Pressure Pulse Oximetry 96 99 96 05/28/18 14:15 05/28/18 14:30 05/28/18 14:45 Temperature 97.3 F L Pulse Rate 88 86 91 H Respiratory Rate 18 16 14 Blood Pressure 118/56 L 109/55 L 116/60 Pulse Oximetry 94 L 96 94 L 05/28/18 15:00 05/28/18 15:05 05/28/18 15:41 Temperature 97.4 F L Pulse Rate 79 Respiratory Rate 15 16 Blood Pressure 101/53 L Pulse Oximetry 95 98 05/28/18 15:43 Temperature Pulse Rate Respiratory Rate Blood Pressure Pulse Oximetry 99 Intake & Output 05/27/18 05/28/18 05/28/18 18:59 06:59 18:59 Intake Total 1800 / 1800 120 / 120 2700 / 2700 Output Total 250 / 250 Balance 1800 / 1800 120 / 120 2450 / 2450 Weight 69.2 kg Intake: IV 0 / 0 Heparin/NS PF Inj 500 ML @ 0 0 / 0 mls/hr .ROUTE .[facility] Rx#: [id number] Oral 1800 / 1800 120 / 120 Anesthesia Amount 2700 / 2700 Output: Estimated Blood Loss 100 / 100 Urine Amount (Catheter) 150 / 150 Indwelling Urethral Catheter 150 / 150 Other: # Voids 4 2 Exam: R groin Prevena in place other incisions c/d/i foot warm strong PT signal Toes cyanotic, stable, no odor Laboratory Results - last 24 hr 05/28/18 05/28/18 05/28/18 07:48 07:48 07:48 WBC 6.8 RBC 4.30 L Hgb 13.1 Hct 39.3 MCV 91.5 MCH 30.4 MCHC 33.2 RDW 14.8 Plt Count 222 MPV 8.8 Neut % (Auto) 74.3 H Lymph % (Auto) 13.0 [place] % (Auto) 7.2 Eos % (Auto) 4.8 H Baso % (Auto) 0.7 Neut # (Auto) 5.0 Lymph # (Auto) 0.9 L [place] # (Auto) 0.5 Eos # (Auto) 0.3 Baso # (Auto) 0.0 WBC Differential . Differential Comment Auto diff final PT 10.7 INR 1.1 Sodium 139 Potassium 3.9 Chloride 104 Carbon Dioxide 25.1 Anion Gap 10 BUN 15 Creatinine 1.07 Estimated GFR 68 L Random Glucose 90 Calcium 9.5 Assessment and Plan - Assessment (1) Peripheral vascular disease Code(s): I73.9 - Peripheral vascular disease, unspecified Status: Acute - Plan POD#0 s/p complex R LE revascularization 1. BR tonight 2. Pulse checks 3. AM labs 4. PT/OOB tomorrow (POD#1) 5. Cordon out tomorrow (POD#1) 6. Cardiac diet now 7. ASA, statin, sub-q heparin for medical management 8. Will need TAAA and L iliofemoral bypass at some point, likely 2-3 weeks depending on recovery
--- NOTE | 2018-05-28 16:33 | P.PN ---
Subjective Interval history: Nursing denies any deterioration since last night. Patient now status post femBKpop and iloprofunda bypass. Physical Exam Vital signs: Vital Signs 05/27/18 20:00 05/27/18 20:44 05/27/18 21:14 Temperature 97.9 F Pulse Rate 84 Respiratory Rate 17 18 18 Blood Pressure 127/67 Pulse Oximetry 95 05/28/18 00:00 05/28/18 00:11 05/28/18 04:00 Temperature 97.7 F Pulse Rate 83 83 77 Respiratory Rate 17 17 Blood Pressure 116/59 L 105/57 L Pulse Oximetry 96 95 05/28/18 07:50 05/28/18 13:24 05/28/18 13:30 Temperature 97.1 F L 96.2 F L Pulse Rate 84 72 73 Respiratory Rate 17 13 13 Blood Pressure 121/74 Pulse Oximetry 99 99 99 05/28/18 13:45 05/28/18 13:46 05/28/18 14:00 Temperature Pulse Rate 75 82 Respiratory Rate 13 16 Blood Pressure Pulse Oximetry 96 99 96 05/28/18 14:15 05/28/18 14:30 05/28/18 14:45 Temperature 97.3 F L Pulse Rate 88 86 91 H Respiratory Rate 18 16 14 Blood Pressure 118/56 L 109/55 L 116/60 Pulse Oximetry 94 L 96 94 L 05/28/18 15:00 05/28/18 15:05 05/28/18 15:41 Temperature 97.4 F L Pulse Rate 79 Respiratory Rate 15 16 Blood Pressure 101/53 L Pulse Oximetry 95 98 05/28/18 15:43 Temperature Pulse Rate Respiratory Rate Blood Pressure Pulse Oximetry 99 Intake & Output 05/27/18 05/28/18 05/28/18 18:59 06:59 18:59 Intake Total 1800 / 1800 120 / 120 2700 / 2700 Output Total 350 / 350 Balance 1800 / 1800 120 / 120 2350 / 2350 Weight 69.2 kg Intake: IV 0 / 0 Heparin/NS PF Inj 500 ML @ 0 0 / 0 mls/hr .ROUTE .[facility] Rx#: [id number] Oral 1800 / 1800 120 / 120 Anesthesia Amount 2700 / 2700 Output: Estimated Blood Loss 100 / 100 Urine Amount (Catheter) 250 / 250 Indwelling Urethral Catheter 250 / 250 Other: # Voids 4 2 Narrative: Evaluated post procedure. Appears drowsy but awakens when prompted Right lower extremity has incisions, right foot appears diffusely red and warm but not painful to touch - Urinary Catheter Management Indwelling Urethral Catheter Cath placed during this visit: yes Reason for continuing: Hourly intake/output Insertion date: 05/28/18 Insertion time: 09:00 Results - Labs CBC & Chem 7: 05/29/18 04:37 05/29/18 04:37 Laboratory Results - last 24 hr 05/28/18 05/28/18 05/28/18 07:48 07:48 07:48 WBC 6.8 RBC 4.30 L Hgb 13.1 Hct 39.3 MCV 91.5 MCH 30.4 MCHC 33.2 RDW 14.8 Plt Count 222 MPV 8.8 Neut % (Auto) 74.3 H Lymph % (Auto) 13.0 [place] % (Auto) 7.2 Eos % (Auto) 4.8 H Baso % (Auto) 0.7 Neut # (Auto) 5.0 Lymph # (Auto) 0.9 L [place] # (Auto) 0.5 Eos # (Auto) 0.3 Baso # (Auto) 0.0 WBC Differential . Differential Comment Auto diff final PT 10.7 INR 1.1 Sodium 139 Potassium 3.9 Chloride 104 Carbon Dioxide 25.1 Anion Gap 10 BUN 15 Creatinine 1.07 Estimated GFR 68 L Random Glucose 90 Calcium 9.5 Assessment and Plan - Assessment (1) Peripheral vascular disease Code(s): I73.9 - Peripheral vascular disease, unspecified Status: Acute (2) Ischemic ulcer Code(s): L98.499 - Non-pressure chronic ulcer of skin of other sites with unspecified severity Status: Acute - Plan 68-year-old white male with longstanding h/o tobacco abuse and no regular medical care for many years presenting with right foot pain, 1st and 2nd toe necrosis, and erythema. Has already undergone treatment for cellulitis of the same right foot with Rocephin with significant improvement in erythema, podiatry recommended conservative medical management. 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 No evidence for leak or rupture at this time. 2. Moderate to severe focal stenosis of the right common iliac artery origin with diffusely aneurysmal right common iliac artery more distally measuring up to 13 mm. 3. Focal moderate to severe stenosis of the mid left common iliac artery exaggerated by tortuosity. 4. Occluded left external iliac artery and common femoral artery with reconstitution of the left profunda. 5. Superficial femoral arteries are occluded bilaterally with reconstitution of the popliteal arteries at the level of the knees. The popliteal arteries are small in caliber and diffusely diseased, particularly on the left. 6. Limited two-vessel on the right with occlusion of the anterior tibial artery and the proximal calf. Limited three-vessel runoff on the left. 7. Prominent apparent hydronephrosis of the left kidney which appears to be likely subacute to chronic extending to the UPJ of indeterminate etiology. 8. Additional ancillary findings, as above. - s/p US guided access to right common femoral artery and RLE angiogram 05/22. - 05/28 s/p . Aortogram . R CINDY stent . R EIA stent . R ilioprofunda bypass for femoral aneurysm . R fem-BK pop bypass - Vasc surgery rec delay in aneurysm repair. -Continue [place] Juxtarenal fusiform aortic aneurysm with thrombus -Vascular surgery following, appreciate assistance -Cardiology recommends continuing statin and ASA. Do not recommend BB in acute setting. Dilated Cardiomyopathy - EF 40-45% with moderate MVR. -Cardiology plans to BB or ISAIAS-I after surgical revascularization. DVT prophylaxis: Subcutaneous heparin
--- NOTE | 2018-05-28 17:46 | MP ---
cc: Gael Veloz MD DATE OF OPERATION: PREOPERATIVE DIAGNOSES: 1. Peripheral arterial occlusive disease. 2. Common femoral artery aneurysm. POSTOPERATIVE DIAGNOSIS: 1. Peripheral arterial occlusive disease. 2. Common femoral artery aneurysm. PROCEDURE: 1. Aortogram. 2. Right common iliac artery stent with an 8 x 27 VisiPRO. 3. Right external iliac artery stent with an 8 x 80 Protege. 4. Right ilioprofunda bypass with 8 mm Dacron. 5. Right femoral to below knee popliteal artery bypass with reverse great saphenous vein. ATTENDING SURGEON: Gael Veloz MD RIBBER SURGEON: Yayo Sears MD RIBBER SURGEON: Dariel Aguilar ANESTHESIA: General. INDICATIONS FOR PROCEDURE: Mr. Rincon is a 68-year-old gentleman with peripheral vascular disease and right lower extremity tissue loss. He has inflow and outflow disease by previous angiogram and he was taken to the operating room for definitive treatment. DESCRIPTION OF PROCEDURE: Informed consent was obtained. The patient was taken to the operating room and placed supine on the operating table. Appropriate timeout was taken to ensure the patient's identity, operative site and planned procedure. The administration of 1 gram of vancomycin was initiated prior to skin incision and will be discontinued after a single preoperative dose. Vancomycin was chosen because of the patient's preoperative length of stay exceeding 48 hours. Everyone in the room agreed and the timeout and we proceeded. He was prepped from his nipples to his toes. A vertical incision was made in the patient's right groin and carried down through subcutaneous tissue with electrocautery. The external iliac artery, circumflex artery, common femoral artery, profunda and SFA were all dissected free. A separate incision was made in the medial aspect of the calf, carried down through the subcutaneous tissues with electrocautery. The muscle was divided and retracted posteriorly and the BK popliteal artery was identified and dissected free. The saphenous vein was identified through this incision and was dissected free. Side branches were ligated with 3-0 silk. The saphenous vein was similarly dissected up at the saphenofemoral junction at the groin and several skip incisions were used to dissect out the entire saphenous vein from the groin to the mid calf. All side branches were ligated with 3-0 silk. The vein was clamped proximally and distally with right angle and oversewn with 3-0 silk. The vein was distended and side branches and venotomies were repaired with 6-0 Prolene suture. The vein was marked for orientation and kept in heparinized saline. At this point, the patient was systemically heparinized with 7000 units of IV heparin and throughout the remainder of the case, ACT was kept greater than 250. A tunnel had been created from the below-knee popliteal artery incision to the groin and a profunda clamp was placed on the external iliac artery. The circumflex vessels were ligated due to the plaque extending up into the external iliac artery and the SFA was transected after a clamp was also placed on the distal profunda. The proximal SFA was oversewn with 4-0 Prolene suture. The entire common femoral artery and proximal profunda as well as distal external iliac artery were resected. The external iliac artery and profunda were bevelled and the external carotid was endarterectomized. An 8 mm Dacron was brought up onto the field, spatulated and sewn end-to-end to the external iliac artery and end-to-end to the profunda femoris artery with running 5-0 Prolene suture. At the completion, it was flushed and noted to be hemostatic. A 21-gauge micropuncture needle was used to access the graft. This was exchanged using a Seldinger technique for a micropuncture sheath through which a 0.035 Glidewire was introduced. The micropuncture sheath was exchanged for a 6-German sheath. The Glidewire was advanced to the aorta and a VCF catheter was placed over this and aortogram and pelvic arteriogram was obtained. The PayOrPass wire was then introduced. The VCF and the VCF was removed and the common iliac artery with angioplasty with a 6 mm balloon and then treated with an 8 x 27 balloon expandable Visiport stent. The external carotid artery was angioplastied with a 6 x 80 balloon and then treated with an 8 x 80 self-expanding Protege stent that was postdilated 7 mm. At the completion of the angiogram it showed excellent result without any recoil or extravasation or flow-limiting dissection. Additionally, there was a normal pulse in the right groin at this time. The wire, catheter and sheath were removed and profunda clamps were placed back on the profunda on the graft and the graftotomy used for the sheath was extended longitudinally. The vein was brought up onto the field and sewn in a reverse fashion by spatulating the proximal aspect of the vein and sewing it end-to-side with running 5-0 Prolene suture to the side of the graft. The vein was distended marked for orientation and then passed through the tunnel, taking caution not to twist it. Proximal and distal control of the popliteal artery were obtained with profunda clamps and a longitudinal arteriotomy was made with an 11 blade, extended with Jose E scissors. The vein was cut to an appropriate length, spatulated and sewn end-to-side to the popliteal artery with a running 6-0 Prolene suture. At completion, it was flushed and noted to be hemostatic. The clamps were released. There was a beautiful signal in the foot and a nice palpable pulse in the graft. The wounds were all irrigated. The heparin was reversed with protamine. The wounds were made hemostatic and closed with 2-0 Polysorb, 3-0 Polysorb and 4-0 Monocryl. The sponge and needle counts were correct at the end of the case. I was present and performed the critical portions. MD LIZBETH Toussaint/ricardo , 04:19 PM , 04:31 PM MTDD
[2018-05-29] MEDS: Heparin - SQ 10,000 UNITS/ML Vial SQ SCH ×2 (01:04→09:24)
[2018-05-29 05:13] LABS: Hematocrit 34.2 % (39.0-51.0); Hemoglobin 11.7 gm/dL (13.0-17.0); Mean Corpuscular HGB Conc 34.2 % (32.0-36.0); Mean Corpuscular Hemoglobin 30.7 pg (27.0-34.0); Mean Corpuscular Volume 89.9 fL (80.0-100.0); Mean Platelet Volume 8.9 fL (7.0-11.0); Platelet Count 169 th/mm3 (150-450); Red Cell Distribution Width 15.1 % (11.6-17.2); White Blood Count 8.2 th/mm3 (4.0-11.0)
[2018-05-29 05:26] LABS: Calcium 8.8 mg/dL (8.5-10.1); Carbon Dioxide 27.1 meq/L (21.0-32.0); Potassium 4.8 meq/L (3.5-5.1)
--- NOTE | 2018-05-29 07:28 | P.PNVS ---
Subjective Post Op Day #: 1 Procedure: R iliofemoral bypass, R CINDY and EIA stents, R fem-BK pop with GSV Subjective/Hospital Course: looks great c/o back pain but better with positional change leg ok and incisions ok Objective Vital Signs / I&O: Vital Signs 05/28/18 07:50 05/28/18 13:24 05/28/18 13:30 Temperature 97.1 F L 96.2 F L Pulse Rate 84 72 73 Respiratory Rate 17 13 13 Blood Pressure 121/74 Pulse Oximetry 99 99 99 05/28/18 13:45 05/28/18 13:46 05/28/18 14:00 Temperature Pulse Rate 75 82 Respiratory Rate 13 16 Blood Pressure Pulse Oximetry 96 99 96 05/28/18 14:15 05/28/18 14:30 05/28/18 14:45 Temperature 97.3 F L 97.3 F L Pulse Rate 88 86 91 H Respiratory Rate 18 16 14 Blood Pressure 118/56 L 109/55 L 116/60 Pulse Oximetry 94 L 96 94 L 05/28/18 15:00 05/28/18 15:05 05/28/18 15:41 Temperature 97.4 F L Pulse Rate 79 Respiratory Rate 15 16 Blood Pressure 101/53 L Pulse Oximetry 95 98 05/28/18 15:43 05/28/18 17:00 05/28/18 18:00 Temperature Pulse Rate 87 85 Respiratory Rate Blood Pressure Pulse Oximetry 99 05/28/18 19:00 05/28/18 20:00 05/28/18 21:00 Temperature 97.4 F L Pulse Rate 91 H 94 H 92 H Respiratory Rate 18 Blood Pressure 108/57 L Pulse Oximetry 98 05/28/18 22:00 05/28/18 22:18 05/28/18 23:00 Temperature 97.4 F L Pulse Rate 88 98 H 91 H Respiratory Rate 18 Blood Pressure 118/56 L Pulse Oximetry 99 05/29/18 00:00 05/29/18 01:00 05/29/18 02:00 Temperature Pulse Rate 92 H 88 81 Respiratory Rate Blood Pressure Pulse Oximetry 05/29/18 03:00 05/29/18 04:00 05/29/18 05:00 Temperature 97.9 F Pulse Rate 104 H 94 H 91 H Respiratory Rate 16 Blood Pressure 132/58 L Pulse Oximetry 97 05/29/18 06:00 Temperature Pulse Rate 100 H Respiratory Rate Blood Pressure Pulse Oximetry Intake & Output 05/28/18 05/29/18 05/29/18 18:59 06:59 18:59 Intake Total 3180 / 3180 480 / 480 Output Total 550 / 550 800 / 800 Balance 2630 / 2630 -320 / -320 Weight 70.5 kg Intake: IV 0 / 0 Heparin/NS PF Inj 500 ML @ 0 0 / 0 mls/hr .ROUTE .[facility] Rx#: [id number] Oral 480 / 480 480 / 480 Anesthesia Amount 2700 / 2700 Output: Estimated Blood Loss 100 / 100 Urine Amount (Catheter) 450 / 450 800 / 800 Indwelling Urethral Catheter 450 / 450 800 / 800 Exam: resting comfortably, no distress incisions c/d/i groin Prevena in place Pulses: Strong PT signal at foot Laboratory Results - last 24 hr 05/28/18 05/28/18 05/28/18 07:48 07:48 07:48 WBC 6.8 RBC 4.30 L Hgb 13.1 Hct 39.3 MCV 91.5 MCH 30.4 MCHC 33.2 RDW 14.8 Plt Count 222 MPV 8.8 Neut % (Auto) 74.3 H Lymph % (Auto) 13.0 [place] % (Auto) 7.2 Eos % (Auto) 4.8 H Baso % (Auto) 0.7 Neut # (Auto) 5.0 Lymph # (Auto) 0.[address] [place] # (Auto) 0.5 Eos # (Auto) 0.3 Baso # (Auto) 0.0 WBC Differential . Differential Comment Auto diff final PT 10.7 INR 1.1 Sodium 139 Potassium 3.9 Chloride 104 Carbon Dioxide 25.1 Anion Gap 10 BUN 15 Creatinine 1.07 Estimated GFR 68 L Random Glucose 90 Calcium 9.5 05/29/18 05/29/18 04:37 04:37 WBC 8.2 RBC 3.80 L Hgb 11.7 L Hct 34.2 L MCV 89.9 MCH 30.7 MCHC 34.2 RDW 15.1 Plt Count 169 MPV 8.9 Neut % (Auto) Lymph % (Auto) [place] % (Auto) Eos % (Auto) Baso % (Auto) Neut # (Auto) Lymph # (Auto) [place] # (Auto) Eos # (Auto) Baso # (Auto) WBC Differential Differential Comment PT INR Sodium 143 Potassium 4.8 D Chloride 105 Carbon Dioxide 27.1 Anion Gap 11 BUN 14 Creatinine 1.13 Estimated GFR 64 L Random Glucose 108 H Calcium 8.8 Assessment and Plan - Assessment (1) Peripheral vascular disease Code(s): I73.9 - Peripheral vascular disease, unspecified Status: Acute - Plan POD#1 s/p complex R LE revascularization 1. OOB ad maria isabel 2. continue Pulse checks 3. PT starting today 4. Cordon out and watch UOP 5. Cardiac diet 6. ASA, statin, sub-q heparin for medical management 7. Will need TAAA and L iliofemoral bypass at some point, likely 2-3 weeks depending on recovery Discharge Planning: likely 3-4 days, depending on mobility and pain control
[2018-05-29] MEDS: Senna/Docusate Sodium 8.6/50 MG Tablet PO SCH ×2 (09:24→21:38)
[2018-05-29] MEDS: Collagenase Oint 30 GM Tube TOPICAL SCH (09:25)
--- NOTE | 2018-05-29 10:43 | P.PNPOD ---
Subjective Interval history: Pt with known dry gangrene of the right foot and recent revascularization with . Pt denies any pain at this time, complains only of weakness to the right leg. Physical Exam Vital signs: Vital Signs 05/28/18 13:24 05/28/18 13:30 05/28/18 13:45 Temperature 96.2 F L Pulse Rate 72 73 Respiratory Rate 13 13 Blood Pressure Pulse Oximetry 99 99 96 05/28/18 13:46 05/28/18 14:00 05/28/18 14:15 Temperature Pulse Rate 75 82 88 Respiratory Rate 13 16 18 Blood Pressure 118/56 L Pulse Oximetry 99 96 94 L 05/28/18 14:30 05/28/18 14:45 05/28/18 15:00 Temperature 97.3 F L 97.3 F L Pulse Rate 86 91 H Respiratory Rate 16 14 15 Blood Pressure 109/55 L 116/60 Pulse Oximetry 96 94 L 05/28/18 15:05 05/28/18 15:41 05/28/18 15:43 Temperature 97.4 F L Pulse Rate 79 Respiratory Rate 16 Blood Pressure 101/53 L Pulse Oximetry 95 98 99 05/28/18 17:00 05/28/18 18:00 05/28/18 19:00 Temperature 97.4 F L Pulse Rate 87 85 91 H Respiratory Rate 18 Blood Pressure 108/57 L Pulse Oximetry 98 05/28/18 20:00 05/28/18 21:00 05/28/18 22:00 Temperature Pulse Rate 94 H 92 H 88 Respiratory Rate Blood Pressure Pulse Oximetry 05/28/18 22:18 05/28/18 23:00 05/29/18 00:00 Temperature 97.4 F L Pulse Rate 98 H 91 H 92 H Respiratory Rate 18 Blood Pressure 118/56 L Pulse Oximetry 99 05/29/18 01:00 05/29/18 02:00 05/29/18 03:00 Temperature 97.9 F Pulse Rate 88 81 104 H Respiratory Rate 16 Blood Pressure 132/58 L Pulse Oximetry 97 05/29/18 04:00 05/29/18 05:00 05/29/18 06:00 Temperature Pulse Rate 94 H 91 H 100 H Respiratory Rate Blood Pressure Pulse Oximetry 05/29/18 07:00 05/29/18 08:00 10/10/18 09:00 Temperature 97.6 F Pulse Rate 92 H 92 H 90 Respiratory Rate 16 Blood Pressure 115/56 L Pulse Oximetry 98 05/29/18 10:00 Temperature Pulse Rate 88 Respiratory Rate Blood Pressure Pulse Oximetry Intake & Output 05/28/18 05/29/18 05/29/18 18:59 06:59 18:59 Intake Total 3180 / 3180 480 / 480 0 / 0 Output Total 550 / 550 800 / 800 Balance 2630 / 2630 -320 / -320 0 / 0 Weight 70.5 kg Intake: IV 0 / 0 0 / 0 Heparin/NS PF Inj 500 ML @ 0 0 / 0 mls/hr .ROUTE .[facility] Rx#: [id number] LR 1000 mL Inj 1,000 ML @ 30 0 / 0 mls/hr IV.SIG .Q24H [facility] Rx#: [id number] Oral 480 / 480 480 / 480 Anesthesia Amount 2700 / 2700 Output: Estimated Blood Loss 100 / 100 Urine Amount (Catheter) 450 / 450 800 / 800 Indwelling Urethral Catheter 450 / 450 800 / 800 Narrative: Right foot feels warm and perfused. Necrotic tips of the hallux and second digit noted with bordering ischemia tissue. No erythema or signs of acute infection. Medications and Allergies Active Medications: Active Medications Acetaminophen (Tylenol) 650 mg PO Q4H PRN PRN Reason: Temp > 100.4 Hydrocodone Bitart/Acetaminophen (Debary 10/325) 1 tab PO Q4H PRN PRN Reason: Pain 2-10 Last Admin: 05/27/18 20:44 Dose: 1 tab Al Hydroxide/Mg Hydroxide (Milk Of Magnesia Liq) 30 ml PO Q12H PRN PRN Reason: Mild Constipation Aspirin (Ecotrin) 81 mg PO DAILY [facility] Last Admin: 05/29/18 09:24 Dose: 81 mg Atorvastatin Calcium (Lipitor) 40 mg PO HS [facility] Last Admin: 05/28/18 20:00 Dose: 40 mg Bisacodyl (Dulcolax Supp) 10 mg RECTAL DAILY PRN PRN Reason: SEVERE CONSITIPATION Collagenase (Santyl Oint) 1 applicatio TOPICAL DAILY [facility] Last Admin: 05/29/18 09:25 Dose: Not Given Enoxaparin Sodium (Lovenox Inj) 40 mg SQ Q24H [facility] Lactulose (Lactulose Liq) 30 ml PO DAILY PRN PRN Reason: SEVERE CONSITIPATION Miscellaneous Information (Misc Nursing Information) 1 each OTHER UNSCH PRN PRN Reason: SEE LABEL COMMENTS Stop: 05/29/18 14:00 Ondansetron HCl (Zofran Inj) 4 mg IV.PUSH Q6H PRN PRN Reason: NAUSEA OR VOMITING Oxycodone HCl (Roxicodone) 5 mg PO Q4H PRN PRN Reason: PAIN SCALE 1 TO 5 Senna/Docusate Sodium (Yoana-Colace) 1 tab PO BID [facility] Last Admin: 05/29/18 09:24 Dose: Not Given Sennosides (Senokot) 17.2 mg PO Q12H PRN PRN Reason: Moderate Constipation Sodium Chloride (Ns Flush) 2 ml IV.FLUSH BID [facility] Last Admin: 05/29/18 09:24 Dose: Not Given Sodium Chloride (Ns Flush) 2 ml IV.FLUSH UNSCH PRN PRN Reason: FLUSH AFTER USING IV ACCESS Last Admin: 05/28/18 22:29 Dose: 2 ml Allergies Allergy/AdvReac Type Severity Reaction Status Date / Time No Known Allergies Allergy Verified 05/20/18 11:36 Home Medications Medication Instructions Recorded Confirmed Type No Known Home Medications 05/20/18 05/20/18 History Results - Labs CBC & Chem 7: 05/29/18 04:37 05/29/18 04:37 Laboratory Results - last 24 hr 05/29/18 05/29/18 04:37 04:37 WBC 8.2 RBC 3.80 L Hgb 11.7 L Hct 34.2 L MCV 89.9 MCH 30.7 MCHC 34.2 RDW 15.1 Plt Count 169 MPV 8.9 Sodium 143 Potassium 4.8 D Chloride 105 Carbon Dioxide 27.1 Anion Gap 11 BUN 14 Creatinine 1.13 Estimated GFR 64 L Random Glucose 108 H Calcium 8.8 Assessment and Plan - Plan 1)Right hallux and second digit dry gangrene -recommend continued monitoring outpatient at this time, as the area of necrosis has not fully demarcated yet -no dressings needed at this time -f/u with -7 days after d/c -pt is aware that there is a chance he may require an amputation or debridement in the future
[2018-05-29] MEDS: Enoxaparin Inj 40 MG/0.4 ML Syringe SQ SCH (12:12)
[2018-05-29] MEDS: Lisinopril 5 MG Tablet PO SCH (13:34)
--- NOTE | 2018-05-29 13:36 | P.PN ---
Subjective Interval history: Nursing denies any deterioration since last night however they do report that the patient is very weak, is almost unable to stand. Patient himself also affirms that his legs are weak, even his left leg which was not the one that needed the bypass. Physical Exam Vital signs: Vital Signs 05/28/18 13:45 05/28/18 13:46 05/28/18 14:00 Temperature Pulse Rate 75 82 Respiratory Rate 13 16 Blood Pressure Pulse Oximetry 96 99 96 05/28/18 14:15 05/28/18 14:30 05/28/18 14:45 Temperature 97.3 F L 97.3 F L Pulse Rate 88 86 91 H Respiratory Rate 18 16 14 Blood Pressure 118/56 L 109/55 L 116/60 Pulse Oximetry 94 L 96 94 L 05/28/18 15:00 05/28/18 15:05 05/28/18 15:41 Temperature 97.4 F L Pulse Rate 79 Respiratory Rate 15 16 Blood Pressure 101/53 L Pulse Oximetry 95 98 05/28/18 15:43 05/28/18 17:00 05/28/18 18:00 Temperature Pulse Rate 87 85 Respiratory Rate Blood Pressure Pulse Oximetry 99 05/28/18 19:00 05/28/18 20:00 05/28/18 21:00 Temperature 97.4 F L Pulse Rate 91 H 94 H 92 H Respiratory Rate 18 Blood Pressure 108/57 L Pulse Oximetry 98 05/28/18 22:00 05/28/18 22:18 05/28/18 23:00 Temperature 97.4 F L Pulse Rate 88 98 H 91 H Respiratory Rate 18 Blood Pressure 118/56 L Pulse Oximetry 99 05/29/18 00:00 05/29/18 01:00 05/29/18 02:00 Temperature Pulse Rate 92 H 88 81 Respiratory Rate Blood Pressure Pulse Oximetry 05/29/18 03:00 05/29/18 04:00 05/29/18 05:00 Temperature 97.9 F Pulse Rate 104 H 94 H 91 H Respiratory Rate 16 Blood Pressure 132/58 L Pulse Oximetry 97 05/29/18 06:00 05/29/18 07:00 05/29/18 08:00 Temperature 97.6 F Pulse Rate 100 H 92 H 92 H Respiratory Rate 16 Blood Pressure 115/56 L Pulse Oximetry 98 05/29/18 09:00 05/29/18:00 05/29/18 11:00 Temperature 97.8 F Pulse Rate 90 88 111 H Respiratory Rate 16 Blood Pressure 152/70 H Pulse Oximetry 98 05/29/18 12:00 05/29/18 13:00 Temperature Pulse Rate 94 H 96 H Respiratory Rate Blood Pressure Pulse Oximetry Intake & Output 05/28/18 05/29/18 05/29/18 18:59 06:59 18:59 Intake Total 3180 / 3180 480 / 480 0 / 0 Output Total 550 / 550 800 / 800 Balance 2630 / 2630 -320 / -320 0 / 0 Weight 70.5 kg Intake: IV 0 / 0 0 / 0 Heparin/NS PF Inj 500 ML @ 0 0 / 0 mls/hr .ROUTE .STK-MED ONE Rx#: [id number] LR 1000 mL Inj 1,000 ML @ 30 0 / 0 mls/hr IV.SIG .Q24H [facility] Rx#: [id number] Oral 480 / 480 480 / 480 Anesthesia Amount 2700 / 2700 Output: Estimated Blood Loss 100 / 100 Urine Amount (Catheter) 450 / 450 800 / 800 Indwelling Urethral Catheter 450 / 450 800 / 800 Narrative: Mild redness over dorsum of right foot, foot is warm overall, I am unable to palpate any pulse Medial thigh incision seems dry clean and intact - Urinary Catheter Management Indwelling Urethral Catheter Cath placed during this visit: yes, but has since been removed by the nurse Reason for continuing: Decision to DC catheter Insertion date: 05/28/18 Insertion time: 09:00 Removal date: 05/29/18 Removal time: 09:37 Results - Labs CBC & Chem 7: 05/29/18 04:37 05/29/18 04:37 Laboratory Results - last 24 hr 05/29/18 05/29/18 04:37 04:37 WBC 8.2 RBC 3.80 L Hgb 11.7 L Hct 34.2 L MCV 89.9 MCH 30.7 MCHC 34.2 RDW 15.1 Plt Count 169 MPV 8.9 Sodium 143 Potassium 4.8 D Chloride 105 Carbon Dioxide 27.1 Anion Gap 11 BUN 14 Creatinine 1.13 Estimated GFR 64 L Random Glucose 108 H Calcium 8.8 Assessment and Plan - Assessment (1) Peripheral vascular disease Code(s): I73.9 - Peripheral vascular disease, unspecified Status: Acute (2) Ischemic ulcer Code(s): L98.499 - Non-pressure chronic ulcer of skin of other sites with unspecified severity Status: Acute - Plan 68-year-old white male with longstanding h/o tobacco abuse and no regular medical care for many years presenting with right foot pain, 1st and 2nd toe necrosis, and erythema. Has already undergone treatment for cellulitis of the same right foot with Rocephin with significant improvement in erythema, podiatry recommended conservative medical management. 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 No evidence for leak or rupture at this time. 2. Moderate to severe focal stenosis of the right common iliac artery origin with diffusely aneurysmal right common iliac artery more distally measuring up to 13 mm. 3. Focal moderate to severe stenosis of the mid left common iliac artery exaggerated by tortuosity. 4. Occluded left external iliac artery and common femoral artery with reconstitution of the left profunda. 5. Superficial femoral arteries are occluded bilaterally with reconstitution of the popliteal arteries at the level of the knees. The popliteal arteries are small in caliber and diffusely diseased, particularly on the left. 6. Limited two-vessel on the right with occlusion of the anterior tibial artery and the proximal calf. Limited three-vessel runoff on the left. 7. Prominent apparent hydronephrosis of the left kidney which appears to be likely subacute to chronic extending to the UPJ of indeterminate etiology. 8. Additional ancillary findings, as above. - s/p US guided access to right common femoral artery and RLE angiogram 05/22. - 05/28 s/p . Aortogram . R CINDY stent . R EIA stent . R ilioprofunda bypass for femoral aneurysm . R fem-BK pop bypass - Vasc surgery rec delay in aneurysm repair. -Continue IV pain meds Juxtarenal fusiform aortic aneurysm with thrombus -Vascular surgery following, appreciate assistance -Cardiology recommends continuing statin and ASA. Do not recommend BB in acute setting. Dilated Cardiomyopathy - EF 40-45% with moderate MVR. -Lisinopril and Coreg DVT prophylaxis: Subcutaneous heparin Discharge Planning: Overall appears weak; needs PT and possible SNF.
--- NOTE | 2018-05-30 08:02 | P.PNVS ---
Subjective Post Op Day #: 2 Procedure: R iliofemoral bypass, R CINDY and EIA stents, R fem-BK pop with GSV Subjective/Hospital Course: continues to look great pain moderately controlled he notes he just feels weak efrem po Objective Vital Signs / I&O: Vital Signs 05/29/18 09:00 05/29/18 10:00 05/29/18 11:00 Temperature 97.8 F Pulse Rate 90 88 111 H Respiratory Rate 16 Blood Pressure 152/70 H Pulse Oximetry 98 05/29/18 12:00 05/29/18 13:00 05/29/18 14:00 Temperature Pulse Rate 94 H 96 H 90 Respiratory Rate Blood Pressure Pulse Oximetry 05/29/18 15:00 05/29/18 16:00 05/29/18 17:00 Temperature 97.8 F Pulse Rate 102 H 93 H 101 H Respiratory Rate 16 Blood Pressure 129/69 Pulse Oximetry 100 05/29/18 18:00 05/29/18 19:00 05/29/18 20:00 Temperature 98.2 F Pulse Rate 97 H 111 H 98 H Respiratory Rate 16 Blood Pressure 129/74 Pulse Oximetry 100 05/29/18 21:00 05/29/18 22:00 05/29/18 23:00 Temperature 98.3 F Pulse Rate 96 H 96 H 99 H Respiratory Rate 16 Blood Pressure 115/58 L Pulse Oximetry 96 05/30/18 00:00 05/30/18 01:00 05/30/18 02:00 Temperature Pulse Rate 86 82 97 H Respiratory Rate Blood Pressure Pulse Oximetry 05/30/18 03:00 05/30/18 03:22 05/30/18 04:00 Temperature Pulse Rate 110 H 86 87 Respiratory Rate 16 Blood Pressure 118/74 Pulse Oximetry 96 05/30/18 05:00 05/30/18 05:54 Temperature Pulse Rate 104 H 86 Respiratory Rate Blood Pressure Pulse Oximetry Intake & Output 05/29/18 05/30/18 05/30/18 18:59 06:59 18:59 Intake Total 800 / 800 340 / 340 Output Total 750 / 750 1050 / 1050 Balance 50 / 50 -710 / -710 Weight 75 kg Intake: IV 0 / 0 LR 1000 mL Inj 1,000 ML @ 30 0 / 0 mls/hr IV.SIG .Q24H [facility] Rx#: [id number] Oral 800 / 800 340 / 340 Output: Urine 750 / 750 1050 / 1050 Other: Date of Last Bowel Movement 05/27/18 # Bowel Movements 0 Exam: sitting on edge of bed, no distress Pulses: strong PT signal foot warm Incisions: R Prevena intact rest of incisions ok Assessment and Plan - Assessment (1) Peripheral vascular disease Code(s): I73.9 - Peripheral vascular disease, unspecified Status: Acute - Plan POD#2 s/p complex R LE revascularization 1. OOB ad maria isabel 2. continue Pulse checks q4h 3. continue PT 4. Cardiac diet 5. ASA, statin, sub-q heparin for medical management5 6. Will need TAAA and L iliofemoral bypass at some point, likely 2-3 weeks depending on recovery Discharge Planning: likely 2 days to rehab Prevena off next week, can be done as outpatient
[2018-05-30] MEDS: Lisinopril 5 MG Tablet PO SCH (08:54)
[2018-05-30] MEDS: Senna/Docusate Sodium 8.6/50 MG Tablet PO SCH ×2 (08:54→20:46)
--- NOTE | 2018-05-30 10:08 | P.PNCA ---
Subjective Interval history: No acute events. Medications and Allergies Active Medications: Active Medications Acetaminophen (Tylenol) 650 mg PO Q4H PRN PRN Reason: Temp > 100.4 Hydrocodone Bitart/Acetaminophen ([place] [address]) 1 tab PO Q4H PRN PRN Reason: Pain 2-10 Last Admin: 05/30/18 08:55 Dose: 1 tab Al Hydroxide/Mg Hydroxide (Milk Of Magnesia Liq) 30 ml PO Q12H PRN PRN Reason: Mild Constipation Aspirin (Ecotrin) 81 mg PO DAILY [facility] Last Admin: 05/30/18 08:54 Dose: 81 mg Atorvastatin Calcium (Lipitor) 40 mg PO HS [facility] Last Admin: 05/29/18 21:38 Dose: 40 mg Bisacodyl (Dulcolax Supp) 10 mg RECTAL DAILY PRN PRN Reason: SEVERE CONSITIPATION Carvedilol (Coreg) 3.125 mg PO BID [facility] Last Admin: 05/30/18 08:54 Dose: 3.125 mg Collagenase (Santyl Oint) 1 applicatio TOPICAL DAILY [facility] Last Admin: 05/29/18 09:25 Dose: Not Given Enoxaparin Sodium (Lovenox Inj) 40 mg SQ Q24H [facility] Last Admin: 05/29/18 12:12 Dose: Not Given Lactulose (Lactulose Liq) 30 ml PO DAILY PRN PRN Reason: SEVERE CONSITIPATION Lisinopril (Prinivil) 2.5 mg PO DAILY [facility] Last Admin: 05/30/18 08:54 Dose: 2.5 mg Miscellaneous (Pill Splitter) 1 each OTHER [facility] Ondansetron HCl (Zofran Inj) 4 mg IV.PUSH Q6H PRN PRN Reason: NAUSEA OR VOMITING Oxycodone HCl (Roxicodone) 5 mg PO Q4H PRN PRN Reason: PAIN SCALE 1 TO 5 Last Admin: 05/29/18 19:42 Dose: 5 mg Senna/Docusate Sodium (Yoana-Colace) 1 tab PO BID [facility] Last Admin: 05/30/18 08:54 Dose: 1 tab Sennosides (Senokot) 17.2 mg PO Q12H PRN PRN Reason: Moderate Constipation Last Admin: 05/30/18 03:20 Dose: 17.2 mg Sodium Chloride (Ns Flush) 2 ml IV.FLUSH BID [facility] Last Admin: 05/30/18 08:57 Dose: 2 ml Sodium Chloride (Ns Flush) 2 ml IV.FLUSH UNSCH PRN PRN Reason: FLUSH AFTER USING IV ACCESS Last Admin: 05/28/18 22:29 Dose: 2 ml Allergies Allergy/AdvReac Type Severity Reaction Status Date / Time No Known Allergies Allergy Verified 05/20/18 11:36 Home Medications Medication Instructions Recorded Confirmed Type No Known Home Medications 05/20/18 05/20/18 History Physical Exam Vital signs: Vital Signs 05/29/18 11:00 05/29/18 12:00 05/29/18 13:00 Temperature 97.8 F Pulse Rate 111 H 94 H 96 H Respiratory Rate 16 Blood Pressure 152/70 H Pulse Oximetry 98 05/29/18 14:00 05/29/18 15:00 05/29/18 16:00 Temperature 97.8 F Pulse Rate 90 102 H 93 H Respiratory Rate 16 Blood Pressure 129/69 Pulse Oximetry 100 05/29/18 17:00 05/29/18 18:00 05/29/18 19:00 Temperature 98.2 F Pulse Rate 101 H 97 H 111 H Respiratory Rate 16 Blood Pressure 129/74 Pulse Oximetry 100 05/29/18 20:00 05/29/18 21:00 05/29/18 22:00 Temperature Pulse Rate 98 H 96 H 96 H Respiratory Rate Blood Pressure Pulse Oximetry 05/29/18 23:00 05/30/18 00:00 05/30/18 01:00 Temperature 98.3 F Pulse Rate 99 H 86 82 Respiratory Rate 16 Blood Pressure 115/58 L Pulse Oximetry 96 05/30/18 02:00 05/30/18 03:00 05/30/18 03:22 Temperature Pulse Rate 97 H 110 H 86 Respiratory Rate 16 Blood Pressure 118/74 Pulse Oximetry 96 05/30/18 04:00 05/30/18 05:00 05/30/18 05:54 Temperature Pulse Rate 87 104 H 86 Respiratory Rate Blood Pressure Pulse Oximetry Intake & Output 05/29/18 05/30/18 05/30/18 18:59 06:59 18:59 Intake Total 800 / 800 340 / 340 Output Total 750 / 750 1050 / 1050 Balance 50 / 50 -710 / -710 Weight 75 kg Intake: IV 0 / 0 LR 1000 mL Inj 1,000 ML @ 30 0 / 0 mls/hr IV.SIG .Q24H [facility] Rx#: [id number] Oral 800 / 800 340 / 340 Output: Urine 750 / 750 1050 / 1050 Other: Date of Last Bowel Movement 05/27/18 # Bowel Movements 0 - Constitutional no acute distress - Routine HEENT Exam Head: Present: normocephalic Eye: Present: EOMI ENT: Present: mucous membranes moist - Routine Neck Exam Present: supple. Absent: JVD - Routine Respiratory Exam Present: CTA bilaterally - Routine Cardiovascular Exam Present: RRR, S1, S2. Absent: murmur - Routine Abdominal Exam Present: soft, normoactive bowel sounds - Routine Extremities Exam Absent: edema - Routine Neurological Exam Present: alert, oriented X3, CN II-XII intact - Urinary Catheter Management Indwelling Urethral Catheter Cath placed during this visit: yes, but has since been removed by the nurse Reason for continuing: Decision to DC catheter Insertion date: 05/28/18 Insertion time: 09:00 Removal date: 05/29/18 Removal time: 09:37 Results 05/29/18 04:37 05/29/18 04:37 CBC 05/29/18 Range/Units 04:37 WBC 8.2 (4.0-11.0) th/mm3 RBC 3.80 L (4.50-5.90) mil/mm3 Hgb 11.7 L (13.0-17.0) gm/dL Hct 34.2 L (39.0-51.0) % Plt Count 169 (150-450) th/mm3 Comprehensive Metabolic Panel 05/29/18 Range/Units 04:37 Sodium 143 (136-145) meq/L Potassium 4.8 D (3.5-5.1) meq/L Chloride 105 (98-107) meq/L Carbon Dioxide 27.1 (21.0-32.0) meq/L BUN 14 (7-18) mg/dL Creatinine 1.13 (0.60-1.30) mg/dL Calcium 8.8 (8.5-10.1) mg/dL Intake and Output 05/29/18 05/30/18 05/30/18 22:59 06:59 14:59 Intake Total 800 / 800 340 / 340 Output Total 750 / 750 1050 / 1050 Balance 50 / 50 -710 / -710 Intake: Oral 800 / 800 340 / 340 Output: Urine 750 / 750 1050 / 1050 Other: Date of Last Bowel Movement 05/27/18 # Bowel Movements 0 Weight 75 kg Assessment and Plan - Plan R iliofemoral bypass, R CINDY and EIA stents, R fem-BK pop with GSV-POD 2 Dilated Cardiomyopathy Ef 40-45% with moderate MR started Lisinopril and Coreg. Patient appears to be tolerating medications at this time. He is otherwise Euvolemic. Given that he has two weeks prior to next interventions, ok to titrate up as tolerated. Cr stable today. We will follow on a prn basis. Please feel free to contact me with any questions.
[2018-05-30] MEDS: Enoxaparin Inj 40 MG/0.4 ML Syringe SQ SCH (12:44)
--- NOTE | 2018-05-30 12:46 | P.PN ---
Subjective Interval history: Nursing denies any deterioration since last night. Patient himself says he feels a little better than yesterday. No increased foot pain on the right. Physical Exam Vital signs: Vital Signs 05/29/18 13:00 05/29/18 14:00 05/29/18 15:00 Temperature 97.8 F Pulse Rate 96 H 90 102 H Respiratory Rate 16 Blood Pressure 129/69 Pulse Oximetry 100 05/29/18 16:00 05/29/18 17:00 05/29/18 18:00 Temperature Pulse Rate 93 H 101 H 97 H Respiratory Rate Blood Pressure Pulse Oximetry 05/29/18 19:00 05/29/18 20:00 05/29/18 21:00 Temperature 98.2 F Pulse Rate 111 H 98 H 96 H Respiratory Rate 16 Blood Pressure 129/74 Pulse Oximetry 100 05/29/18 22:00 05/29/18 23:00 05/30/18 00:00 Temperature 98.3 F Pulse Rate 96 H 99 H 86 Respiratory Rate 16 Blood Pressure 115/58 L Pulse Oximetry 96 05/30/18 01:00 05/30/18 02:00 05/30/18 03:00 Temperature Pulse Rate 82 97 H 110 H Respiratory Rate Blood Pressure Pulse Oximetry 05/30/18 03:22 05/30/18 04:00 05/30/18 05:00 Temperature Pulse Rate 86 87 104 H Respiratory Rate 16 Blood Pressure 118/74 Pulse Oximetry 96 05/30/18 05:54 05/30/18 07:00 05/30/18 08:00 Temperature 97.7 F Pulse Rate 86 98 H 85 Respiratory Rate 18 Blood Pressure 115/64 Pulse Oximetry 99 05/30/18 09:00 05/30/18 10:00 Temperature Pulse Rate 87 89 Respiratory Rate Blood Pressure Pulse Oximetry Intake & Output 05/29/18 05/30/18 05/30/18 18:59 06:59 18:59 Intake Total 800 / 800 340 / 340 Output Total 750 / 750 1050 / 1050 Balance 50 / 50 -710 / -710 Weight 75 kg Intake: IV 0 / 0 LR 1000 mL Inj 1,000 ML @ 30 0 / 0 mls/hr IV.SIG .Q24H [facility] Rx#: [id number] Oral 800 / 800 340 / 340 Output: Urine 750 / 750 1050 / 1050 Other: Date of Last Bowel Movement 05/27/18 05/27/18 # Bowel Movements 0 Narrative: Right lower extremity: Mild edema in right lower extremity Mild redness over dorsum of right foot, foot is warm overall, unchanged erythema margins that span from the toes to the midfoot Medial thigh incision seems dry clean and intact - Urinary Catheter Management Indwelling Urethral Catheter Cath placed during this visit: yes, but has since been removed by the nurse Reason for continuing: Decision to DC catheter Insertion date: 05/28/18 Insertion time: 09:00 Removal date: 05/29/18 Removal time: 09:37 Results - Labs CBC & Chem 7: 05/29/18 04:37 05/29/18 04:37 Assessment and Plan - Assessment (1) Peripheral vascular disease Code(s): I73.9 - Peripheral vascular disease, unspecified Status: Acute (2) Ischemic ulcer Code(s): L98.499 - Non-pressure chronic ulcer of skin of other sites with unspecified severity Status: Acute - Plan 68-year-old white male with longstanding h/o tobacco abuse and no regular medical care for many years presenting with right foot pain, 1st and 2nd toe necrosis, and erythema. Has already undergone treatment for cellulitis of the same right foot with Rocephin with significant improvement in erythema, podiatry recommended conservative medical management. 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 No evidence for leak or rupture at this time. 2. Moderate to severe focal stenosis of the right common iliac artery origin with diffusely aneurysmal right common iliac artery more distally measuring up to 13 mm. 3. Focal moderate to severe stenosis of the mid left common iliac artery exaggerated by tortuosity. 4. Occluded left external iliac artery and common femoral artery with reconstitution of the left profunda. 5. Superficial femoral arteries are occluded bilaterally with reconstitution of the popliteal arteries at the level of the knees. The popliteal arteries are small in caliber and diffusely diseased, particularly on the left. 6. Limited two-vessel on the right with occlusion of the anterior tibial artery and the proximal calf. Limited three-vessel runoff on the left. 7. Prominent apparent hydronephrosis of the left kidney which appears to be likely subacute to chronic extending to the UPJ of indeterminate etiology. 8. Additional ancillary findings, as above. - s/p US guided access to right common femoral artery and RLE angiogram 05/22. - 05/28 s/p . Aortogram . R CINDY stent . R EIA stent . R ilioprofunda bypass for femoral aneurysm . R fem-BK pop bypass - Vasc surgery rec delay in aneurysm repair. -Continue IV pain meds Juxtarenal fusiform aortic aneurysm with thrombus -Vascular surgery following, appreciate assistance -Lipitor and aspirin Dilated Cardiomyopathy - EF 40-45% with moderate MVR. -Lisinopril and Coreg DVT prophylaxis: Subcutaneous heparin Discharge Planning: Discussed with PT, anticipates improvement in 1-2 days and overall conditioning and recommendations.
[2018-05-30] MEDS: Collagenase Oint 30 GM Tube TOPICAL SCH (13:15)
[2018-05-30] MEDS: Carvedilol 6.25 MG Tablet PO SCH (20:45)
--- NOTE | 2018-05-31 08:40 | P.DCO ---
- Diagnosis (1) Peripheral vascular disease Status: Acute (2) Ischemic ulcer Status: Acute - Physical Therapy Order: Evaluate and treat - Case Management Consult Yes - Certification I have seen patient Kain Rincon on 05/31/18. My clinical findings support the need for the requested home health care services because: Limited ability to care for self I certify that my clinical findings support that this patient is homebound because: Post-op weakness, Unsteady gait/balance
[2018-05-31] MEDS: Lisinopril 5 MG Tablet PO SCH (08:58)
[2018-05-31] MEDS: Carvedilol 6.25 MG Tablet PO SCH ×2 (08:59→21:04)
[2018-05-31] MEDS: Collagenase Oint 30 GM Tube TOPICAL SCH (08:59)
[2018-05-31] MEDS: Senna/Docusate Sodium 8.6/50 MG Tablet PO SCH ×2 (08:59→21:04)
--- NOTE | 2018-05-31 09:54 | P.DS ---
Date of admission: 05/20/18 15:12 Primary care physician: UNKNOWN Brief History from admission: 68 year old with longstanding history of tobacco abuse presenting with right 1st and 2nd toe pain and right foot swelling/erythema. The patient states that for the past three weeks his right 1st and 2nd toes have become progressively black at the distal ends. He thought at first he may have had a fungus but it became progressively more painful with time to the point where he could barely put weight on his feet. He states in the past 2-3 days he noticed redness and swelling of the dorsum of his right foot. He denies fever, chills, calf pain, chest pain, shortness of breath, cough, rash, nausea, vomiting, or abdominal pain. He denies any medical problems but he also hasn't been seen by a doctor in at least ten years. He has been smoking for 55 years and states he is up to 2PPD. He has a strong family history of PAD in his brother and father. His brother has bilateral AKAs from PVD. The patient does not take any medications. He endorses pain in his foot that wakes him from sleep at night and states it is improved when he hangs his foot off the bed. DS: Diagnosis - Discharge Diagnosis (1) Peripheral vascular disease Status: Acute (2) Ischemic ulcer Status: Acute DS: Medications - Discharge Medications Prescriptions: aspirin 81 mg PO DAILY #30 tab atorvastatin 40 mg PO HS #30 tab carvedilol [Coreg] 6.25 mg PO BID #60 tab hydrocodone-acetaminophen 1 tab PO Q4H PRN #30 tab PRN Reason: Pain lisinopril 2.5 mg PO DAILY #30 tab oxycodone 5 mg PO Q8H PRN #9 tab PRN Reason: Acute Pain DS: Summary Hospital Course: Patient was admitted w/ right foot pain with ischemic ulcers and cellulitis. Completed abx for cellulitis. Underwent cardiac cath. Started on heart failure meds. Underwent US guided R [employer] and RLE angiogram on 05.22 finding signifcant PAD. Underwent femoralbypass, femBK pop bypass, EIA stenting, CINDY stenting on 05/28. patient fell on 05/31 dehiscing his wound, underwent re-suturing. 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 To have aneurysm repair after discharge. Pt has met maximal benefit from hospitalization and is clinically stable for discharge to snf. - Time Spent with Patient Total time spent providing and/or coordinating discharge services: Less than 30 minutes - Quality: VTE Deep Vein Thrombosis/Pulmonary Embolism Present on Admission: No Exam Vital signs: Vital Signs 05/30/18 10:00 05/30/18 11:00 05/30/18 12:00 Temperature 98.2 F Pulse Rate 89 99 H 93 H Respiratory Rate 17 Blood Pressure 116/56 L Pulse Oximetry 97 05/30/18 14:00 05/30/18 15:00 05/30/18 16:00 Temperature 98.7 F Pulse Rate 88 89 89 Respiratory Rate 16 Blood Pressure 115/62 Pulse Oximetry 98 05/30/18 17:00 05/30/18 18:00 05/30/18 19:00 Temperature 98.2 F Pulse Rate 90 81 95 H Respiratory Rate 16 Blood Pressure 120/64 Pulse Oximetry 95 05/30/18 20:00 05/30/18 20:46 05/30/18 21:00 Temperature Pulse Rate 88 92 H Respiratory Rate 20 Blood Pressure Pulse Oximetry 05/30/18 22:00 05/30/18 23:00 05/31/18 00:00 Temperature 98.3 F Pulse Rate 108 H 85 80 Respiratory Rate 18 Blood Pressure 103/58 L Pulse Oximetry 92 L 05/31/18 01:00 05/31/18 02:00 05/31/18 03:00 Temperature 98.1 F Pulse Rate 84 85 92 H Respiratory Rate 16 Blood Pressure 116/59 L Pulse Oximetry 98 05/31/18 04:00 05/31/18 05:00 05/31/18 06:00 Temperature Pulse Rate 84 79 89 Respiratory Rate Blood Pressure Pulse Oximetry 05/31/18 07:00 05/31/18 08:58 05/31/18 09:52 Temperature Pulse Rate 78 Respiratory Rate 16 16 Blood Pressure Pulse Oximetry Intake & Output 05/30/18 05/31/18 05/31/18 18:59 06:59 18:59 Intake Total 680 / 680 480 / 480 Output Total 1000 / 1000 750 / 750 Balance -320 / -320 -270 / -270 Weight 74.5 kg Intake: Oral 680 / 680 480 / 480 Output: Urine 750 / 750 Urine Amount (Catheter) 1000 / 1000 Indwelling Urethral Catheter 1000 / 1000 Other: Date of Last Bowel Movement 05/27/18 05/31/18 # Bowel Movements 1 Narrative: Exam done on 06/01 Right foot feels warm, right lower extremity is in postoperative dressing Results Procedures completed during hospitalization: Right lower extremity aortogram R iliofemoral bypass, R CINDY and EIA stents, R fem-BK pop with GSV-POD 2 - Impressions ITS Impressions Aorta w/Runoff CTA 05/20/18 00:00 CONCLUSION: 1. 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 No evidence for leak or rupture at this time. 2. Moderate to severe focal stenosis of the right common iliac artery origin with diffusely aneurysmal right common iliac artery more distally measuring up to 13 mm. 3. Focal moderate to severe stenosis of the mid left common iliac artery exaggerated by tortuosity. 4. Occluded left external iliac artery and common femoral artery with reconstitution of the left profunda. 5. Superficial femoral arteries are occluded bilaterally with reconstitution of the popliteal arteries at the level of the knees. The popliteal arteries are small in caliber and diffusely diseased, particularly on the left. 6. Limited two-vessel on the right with occlusion of the anterior tibial artery and the proximal calf. Limited three-vessel runoff on the left. 7. Prominent apparent hydronephrosis of the left kidney which appears to be likely subacute to chronic extending to the UPJ of indeterminate etiology. 8. Additional ancillary findings, as above. Extremity Arterial Study 05/20/18 00:00 CONCLUSION: 1. Severe reduction of the ABIs bilaterally. Foot X-Ray 05/20/18 10:55 CONCLUSION: Negative for an acute process Lower Extremity Ultrasound 05/21/18 00:00 CONCLUSION: 1. Venous mapping as above. Venous Doppler Study 05/21/18 00:00 CONCLUSION: 1. The study is negative for bilateral lower extremity deep venous thrombosis. Discharge Plan - Discharge Disposition Patient Disposition: Discharge to SNF - Discharge Condition Condition: Stable - Discharge Order Discharge Orders: Discharge Order (Routine); Ordered 06/03/18 Ordered By: Jake Perez Vascular Surgery Clear for Discharge (Routine); Ordered 05/31/18 Ordered By: Penelope Velarde - Physicians Team Primary Care Provider: UNKNOWN, Attending Provider: Jake Perez Other Providers: Gael Veloz MD ; Liudmila Diez DPM ; [employer] ; Gibson Hernandez MD ; Nola Patel,Agency
--- NOTE | 2018-05-31 10:56 | P.PNVS ---
Subjective Post Op Day #: 3 Procedure: R iliofemoral bypass, R CINDY and EIA stents, R fem-BK pop with GSV Subjective/Hospital Course: 68/M S/P R LE revasc Pt doing well this am Pt c/o R LE incisional discomfort Pain controlled Incision to R LE intact w/o R/D/S Prevena wound vac to R groin intact Objective Vital Signs / I&O: Vital Signs 05/30/18 11:00 05/30/18 12:00 05/30/18 14:00 Temperature 98.2 F Pulse Rate 99 H 93 H 88 Respiratory Rate 17 Blood Pressure 116/56 L Pulse Oximetry 97 05/30/18 15:00 05/30/18 16:00 05/30/18 17:00 Temperature 98.7 F Pulse Rate 89 89 90 Respiratory Rate 16 Blood Pressure 115/62 Pulse Oximetry 98 05/30/18 18:00 05/30/18 19:00 05/30/18 20:00 Temperature 98.2 F Pulse Rate 81 95 H 88 Respiratory Rate 16 Blood Pressure 120/64 Pulse Oximetry 95 05/30/18 20:46 05/30/18 21:00 05/30/18 22:00 Temperature Pulse Rate 92 H 108 H Respiratory Rate 20 Blood Pressure Pulse Oximetry 05/30/18 23:00 05/31/18 00:00 05/31/18 01:00 Temperature 98.3 F Pulse Rate 85 80 84 Respiratory Rate 18 Blood Pressure 103/58 L Pulse Oximetry 92 L 05/31/18 02:00 05/31/18 03:00 05/31/18 04:00 Temperature 98.1 F Pulse Rate 85 92 H 84 Respiratory Rate 16 Blood Pressure 116/59 L Pulse Oximetry 98 05/31/18 05:00 05/31/18 06:00 05/31/18 07:00 Temperature Pulse Rate 79 89 78 Respiratory Rate Blood Pressure Pulse Oximetry 05/31/18 08:00 05/31/18 08:58 05/31/18 09:00 Temperature 98.3 F Pulse Rate 80 87 Respiratory Rate 18 16 Blood Pressure 127/58 L Pulse Oximetry 99 05/31/18 09:52 05/31/18 10:00 Temperature Pulse Rate 88 Respiratory Rate 16 Blood Pressure Pulse Oximetry Intake & Output 05/30/18 05/31/18 05/31/18 18:59 06:59 18:59 Intake Total 680 / 680 480 / 480 Output Total 1000 / 1000 750 / 750 Balance -320 / -320 -270 / -270 Weight 74.5 kg Intake: Oral 680 / 680 480 / 480 Output: Urine 750 / 750 Urine Amount (Catheter) 1000 / 1000 Indwelling Urethral Catheter 1000 / 1000 Other: Date of Last Bowel Movement 05/27/18 05/31/18 05/31/18 # Bowel Movements 1 Exam: Incision to R LE intact with surgical glue Incision w/o erythema, swelling or drainage B LE warm w/ motor intact R LE with biphasic DP/PT signals Assessment and Plan - Assessment (1) Peripheral vascular disease Code(s): I73.9 - Peripheral vascular disease, unspecified Status: Acute - Plan POD#3 s/p complex R LE revascularization Plan Pt clear for d/c (to rehab) from a vascular standpoint May continue PT/OOB/ad maria isabel Discussed w/ pt planning TAAA and L iliofemoral bypass (out pt) likely 2-3 weeks depending on recovery Questions answered Leave R groin Prevena wound vac- Will remove on Sun06/04/18 in our out pt clinic Penelope Velarde NP [employer] [phone] Discharge Planning: Clear for d/c (rehab) Prevena wound vac to be removed in our out pt clinic on 07/05/18 at 11:00 - Attending Attestation I saw and examined the patient, agree with the midlevel A/P: date of service 08/06 Yayo Sears MD [email or web address]
[2018-05-31] MEDS: Enoxaparin Inj 40 MG/0.4 ML Syringe SQ SCH (12:05)
--- NOTE | 2018-05-31 15:08 | XR ---
EXAM DATE: 05/31/2018 12:00 AM EDT AGE/SEX: 68 years / Male INDICATIONS: Swelling of ankle. CLINICAL DATA: This is the patient's initial encounter. Patient reports that signs and symptoms have been present for 2 days and indicates a pain score of 8/10. MEDICAL/SURGICAL HISTORY: . Peripheral vascular disease. Tobacco abuse. Ischemic ulcer. . Righ t intraoperative angiogram. COMPARISON: No prior exams available for comparison. FINDINGS: Bony structures are intact and in normal alignment. Joints are intact without dislocation or signifi cant arthropathy. Osseous density is normal. Soft tissues are unremarkable. No radiopaque foreign bodies seen. CONCLUSION: Negative examination Electronically signed by: Willard Dacosta MD 05/31/2018 3:06 PM EDT
[2018-05-31] MEDS ORDERED: HYDROmorphone PF Inj 2 MG/ML Vial IV.PUSH ONE (15:45)
--- NOTE | 2018-05-31 15:54 | P.PN ---
Subjective Interval history: Nursing denies any deterioration since last night. Earlier this morning patient was looking forward to rehab when available. However later in the day he tried moving around without calling for help and fell dehiscing his incision Physical Exam Vital signs: Vital Signs 05/30/18 16:00 05/30/18 17:00 05/30/18 18:00 Temperature Pulse Rate 89 90 81 Respiratory Rate Blood Pressure Pulse Oximetry 05/30/18 19:00 05/30/18 20:00 05/30/18 20:46 Temperature 98.2 F Pulse Rate 95 H 88 Respiratory Rate 16 20 Blood Pressure 120/64 Pulse Oximetry 95 05/30/18 21:00 05/30/18 22:00 05/30/18 23:00 Temperature 98.3 F Pulse Rate 92 H 108 H 85 Respiratory Rate 18 Blood Pressure 103/58 L Pulse Oximetry 92 L 05/31/18 00:00 05/31/18 01:00 05/31/18 02:00 Temperature Pulse Rate 80 84 85 Respiratory Rate Blood Pressure Pulse Oximetry 05/31/18 03:00 05/31/18 04:00 05/31/18 05:00 Temperature 98.1 F Pulse Rate 92 H 84 79 Respiratory Rate 16 Blood Pressure 116/59 L Pulse Oximetry 98 05/31/18 06:00 05/31/18 07:00 05/31/18 08:00 Temperature 98.3 F Pulse Rate 89 78 80 Respiratory Rate 18 Blood Pressure 127/58 L Pulse Oximetry 99 05/31/18 08:58 05/31/18 09:00 05/31/18 09:52 Temperature Pulse Rate 87 Respiratory Rate 16 16 Blood Pressure Pulse Oximetry 05/31/18 10:00 05/31/18 10:59 05/31/18 12:00 Temperature 98.2 F Pulse Rate 88 89 85 Respiratory Rate 16 Blood Pressure 110/59 L Pulse Oximetry 99 05/31/18 12:44 05/31/18 13:00 05/31/18 14:00 Temperature Pulse Rate 82 80 Respiratory Rate 20 Blood Pressure Pulse Oximetry 05/31/18 14:39 Temperature Pulse Rate 82 Respiratory Rate Blood Pressure Pulse Oximetry Intake & Output 05/30/18 05/31/18 05/31/18 18:59 06:59 18:59 Intake Total 680 / 680 480 / 480 Output Total 1000 / 1000 750 / 750 Balance -320 / -320 -270 / -270 Weight 74.5 kg Intake: Oral 680 / 680 480 / 480 Output: Urine 750 / 750 Urine Amount (Catheter) 1000 / 1000 Indwelling Urethral Catheter 1000 / 1000 Other: Date of Last Bowel Movement 05/27/18 05/31/18 05/31/18 # Bowel Movements 1 Narrative: Earlier examination demonstrated the patient had clear lung sounds bilaterally, unlabored breathing, sitting in chair, no acute distress Second examination demonstrated that the vascular surgeon was actively suturing his leg at the time - Urinary Catheter Management Indwelling Urethral Catheter Cath placed during this visit: yes, but has since been removed by the nurse Reason for continuing: Decision to DC catheter Insertion date: 05/28/18 Insertion time: 09:00 Removal date: 05/29/18 Removal time: 09:37 Results - Labs CBC & Chem 7: 05/29/18 04:37 05/29/18 04:37 - Imaging Impressions Ankle X-Ray 05/31/18 00:00 CONCLUSION: Negative examination Assessment and Plan - Assessment (1) Peripheral vascular disease Code(s): I73.9 - Peripheral vascular disease, unspecified Status: Acute (2) Ischemic ulcer Code(s): L98.499 - Non-pressure chronic ulcer of skin of other sites with unspecified severity Status: Acute - Plan 68-year-old white male with longstanding h/o tobacco abuse and no regular medical care for many years presenting with right foot pain, 1st and 2nd toe necrosis, and erythema. Has already undergone treatment for cellulitis of the same right foot with Rocephin with significant improvement in erythema, podiatry recommended conservative medical management. Is now status post ileal profunda bypass, PhamBK pop bypass, EIA stenting, CINDY stenting on 05/28. patient fell on 05/31 dehiscing his wound, now is actively undergoing suturing. 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 No evidence for leak or rupture at this time. 2. Moderate to severe focal stenosis of the right common iliac artery origin with diffusely aneurysmal right common iliac artery more distally measuring up to 13 mm. 3. Focal moderate to severe stenosis of the mid left common iliac artery exaggerated by tortuosity. 4. Occluded left external iliac artery and common femoral artery with reconstitution of the left profunda. 5. Superficial femoral arteries are occluded bilaterally with reconstitution of the popliteal arteries at the level of the knees. The popliteal arteries are small in caliber and diffusely diseased, particularly on the left. 6. Limited two-vessel on the right with occlusion of the anterior tibial artery and the proximal calf. Limited three-vessel runoff on the left. 7. Prominent apparent hydronephrosis of the left kidney which appears to be likely subacute to chronic extending to the UPJ of indeterminate etiology. 8. Additional ancillary findings, as above. - s/p US guided access to right common femoral artery and RLE angiogram 05/22. - 05/28 s/p . Aortogram . R CINDY stent . R EIA stent . R ilioprofunda bypass for femoral aneurysm . R fem-BK pop bypass - Vasc surgery rec delay in aneurysm repair. -Continue IV pain meds Juxtarenal fusiform aortic aneurysm with thrombus -Vascular surgery following, appreciate assistance -Lipitor and aspirin Dilated Cardiomyopathy - EF 40-45% with moderate MVR. -Lisinopril and Coreg Discharge Planning: Anticipate discharge tomorrow given pain medications given today. Likely rehab.
--- NOTE | 2018-05-31 18:27 | P.PNADD ---
Addendum to Inpatient Note Reason for Addendum: Additional Documentation Additional information: Called in to evaluate the patient status post fall in his room with dehiscence of his right calf wound. I examined the right calf, there is wound dehiscence of the distal aspect of his incision. The right DP, PT signals are multiphasic. The right lower extremity was prepped and draped in the standard sterile fashion. 1% lidocaine was injected to anesthetize the skin edges. The wound was then closed using multiple interrupted nylon sutures. A dressing was applied to the wound.
[2018-06-01] MEDS: Senna/Docusate Sodium 8.6/50 MG Tablet PO SCH ×2 (08:34→21:02)
[2018-06-01] MEDS: Lisinopril 5 MG Tablet PO SCH (08:34)
[2018-06-01] MEDS: Carvedilol 6.25 MG Tablet PO SCH ×2 (08:35→21:02)
[2018-06-01] MEDS: Collagenase Oint 30 GM Tube TOPICAL SCH (08:36)
--- NOTE | 2018-06-01 09:57 | P.PNVS ---
Subjective Post Op Day #: 4 Procedure: R iliofemoral bypass, R CINDY and EIA stents, R fem-BK pop with GSV Subjective/Hospital Course: 68/M S/P R LE revasc Pt doing well this am Pt c/o R LE incisional discomfort Pain controlled Incision to R LE intact w/o R/D/S Prevena wound vac to R groin intact Objective Vital Signs / I&O: Vital Signs 05/31/18 10:00 05/31/18 10:59 05/31/18 12:00 Temperature 98.2 F Pulse Rate 88 89 85 Respiratory Rate 16 Blood Pressure 110/59 L Pulse Oximetry 99 05/31/18 12:44 05/31/18 13:00 05/31/18 13:30 Temperature 98.1 F Pulse Rate 82 87 Respiratory Rate 20 16 Blood Pressure 108/62 Pulse Oximetry 98 05/31/18 14:00 05/31/18 14:39 05/31/18 16:00 Temperature 98.1 F Pulse Rate 80 82 76 Respiratory Rate 18 Blood Pressure 106/56 L Pulse Oximetry 97 05/31/18 17:00 05/31/18 17:50 05/31/18 19:00 Temperature Pulse Rate 72 78 90 Respiratory Rate Blood Pressure Pulse Oximetry 05/31/18 20:00 05/31/18 21:00 05/31/18 21:04 Temperature 98.0 F Pulse Rate 78 80 Respiratory Rate 16 18 Blood Pressure 109/55 L Pulse Oximetry 99 05/31/18 21:19 05/31/18 22:00 05/31/18 23:00 Temperature Pulse Rate 80 80 90 Respiratory Rate 18 Blood Pressure Pulse Oximetry 06/01/18 00:00 06/01/18 01:00 06/01/18 01:19 Temperature 97.8 F Pulse Rate 92 H 76 76 Respiratory Rate 18 16 Blood Pressure 138/60 103/58 L Pulse Oximetry 100 98 06/01/18 02:00 06/01/18 02:02 06/01/18 03:00 Temperature Pulse Rate 80 75 Respiratory Rate 20 Blood Pressure Pulse Oximetry 06/01/18 04:00 06/01/18 05:00 06/01/18 06:00 Temperature 98.1 F Pulse Rate 86 80 90 Respiratory Rate 16 Blood Pressure 121/60 Pulse Oximetry 97 06/01/18 07:00 06/01/18 08:00 06/01/18 09:00 Temperature 97.4 F L Pulse Rate 81 76 83 Respiratory Rate 16 Blood Pressure 130/60 Pulse Oximetry 100 Intake & Output 05/31/18 06/01/18 06/01/18 18:59 06:59 18:59 Intake Total 720 / 720 960 / 960 Output Total 1050 / 1050 1850 / 1850 Balance -330 / -330 -890 / -890 Weight 75 kg Intake: Oral 720 / 720 960 / 960 Output: Urine 1050 / 1050 1850 / 1850 Other: # Voids 5 Date of Last Bowel Movement 05/31/18 05/31/18 Pulses: Multiphasic right dorsalis pedis, posterior tibial signal Incisions: Right groin wounds is clean dry intact. There is mild drainage from the right thigh incision. Right calf incision is clean dry intact. Assessment and Plan - Assessment (1) Peripheral vascular disease Code(s): I73.9 - Peripheral vascular disease, unspecified Status: Acute - Plan POD#3 s/p complex R LE revascularization Status post fall with dehiscence of the right calf wound that was repaired at the bedside. Plan Pt clear for d/c (to rehab) from a vascular standpoint May continue PT/OOB/ad maria isabel Discussed w/ pt planning TAAA and L iliofemoral bypass (out pt) likely 2-3 weeks depending on recovery Questions answered Leave R groin Prevena wound vac- Will remove on Sun06/04/18 in our out pt clinic Yayo Sears MD [email or web address] [phone] Discharge Planning: Clear for d/c (rehab) Prevena wound vac to be removed in our out pt clinic on 07/05/18 at 11:00
[2018-06-01] MEDS: Enoxaparin Inj 40 MG/0.4 ML Syringe SQ SCH (12:21)
[2018-06-02] MEDS: Collagenase Oint 30 GM Tube TOPICAL SCH (08:02)
[2018-06-02] MEDS: Senna/Docusate Sodium 8.6/50 MG Tablet PO SCH ×2 (08:02→21:04)
[2018-06-02] MEDS: Carvedilol 6.25 MG Tablet PO SCH ×2 (08:02→21:03)
[2018-06-02] MEDS: Lisinopril 5 MG Tablet PO SCH (08:02)
[2018-06-02] MEDS: Enoxaparin Inj 40 MG/0.4 ML Syringe SQ SCH (12:00)
--- NOTE | 2018-06-02 12:49 | P.PN ---
Subjective Interval history: Patient seen today. No deteriorations overnight. Pending placement. Physical Exam Vital signs: Vital Signs 06/01/18 13:00 06/01/18 14:00 06/01/18 15:00 Temperature 98.0 F Pulse Rate 85 88 84 Respiratory Rate 16 Blood Pressure 101/58 L Pulse Oximetry 99 06/01/18 16:00 06/01/18 17:00 06/01/18 18:00 Temperature Pulse Rate 93 H 99 H 87 Respiratory Rate Blood Pressure Pulse Oximetry 06/01/18 19:00 06/01/18 20:00 06/01/18 21:00 Temperature Pulse Rate 87 87 87 Respiratory Rate 18 Blood Pressure 117/58 L Pulse Oximetry 100 06/01/18 22:00 06/01/18 23:00 06/02/18 00:00 Temperature 98.1 F Pulse Rate 87 88 78 Respiratory Rate 18 Blood Pressure 107/59 L Pulse Oximetry 100 06/02/18 01:00 06/02/18 02:00 06/02/18 03:00 Temperature 98.2 F Pulse Rate 78 87 87 Respiratory Rate 18 Blood Pressure 109/58 L Pulse Oximetry 100 06/02/18 04:00 06/02/18 05:00 06/02/18 07:00 Temperature 97.5 F L Pulse Rate 87 79 89 Respiratory Rate 16 Blood Pressure 109/54 L Pulse Oximetry 100 06/02/18 08:00 06/02/18 09:00 06/02/18 10:00 Temperature Pulse Rate 87 94 H 92 H Respiratory Rate Blood Pressure Pulse Oximetry 06/02/18 11:00 06/02/18 12:00 Temperature 97.8 F Pulse Rate 93 H 100 H Respiratory Rate 16 Blood Pressure 115/57 L Pulse Oximetry 100 Intake & Output 06/01/18 06/02/18 06/02/18 18:59 06:59 18:59 Intake Total 1600 / 1600 480 / 480 Output Total 1800 / 1800 1350 / 1350 Balance -200 / -200 -870 / -870 Weight 72.9 kg Intake: Oral 1600 / 1600 480 / 480 Output: Urine 1800 / 1800 1350 / 1350 Other: # Bowel Movements 2 Narrative: Right leg in postoperative dressing. Patient self in good spirits, no acute distress - Urinary Catheter Management Indwelling Urethral Catheter Cath placed during this visit: yes, but has since been removed by the nurse Reason for continuing: Decision to DC catheter Insertion date: 05/28/18 Insertion time: 09:00 Removal date: 05/29/18 Removal time: 09:37 Results - Labs CBC & Chem 7: 05/29/18 04:37 05/29/18 04:37 Assessment and Plan - Assessment (1) Peripheral vascular disease Code(s): I73.9 - Peripheral vascular disease, unspecified Status: Acute (2) Ischemic ulcer Code(s): L98.499 - Non-pressure chronic ulcer of skin of other sites with unspecified severity Status: Acute - Plan 68-year-old white male with longstanding h/o tobacco abuse and no regular medical care for many years presenting with right foot pain, 1st and 2nd toe necrosis, and erythema. Has already undergone treatment for cellulitis of the same right foot with Rocephin with significant improvement in erythema, podiatry recommended conservative medical management. Is now status post ileal profunda bypass, PhamBK pop bypass, EIA stenting, CINDY stenting on 05/28. patient fell on 05/31 dehiscing his wound, underwent re-suturing. 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 No evidence for leak or rupture at this time. 2. Moderate to severe focal stenosis of the right common iliac artery origin with diffusely aneurysmal right common iliac artery more distally measuring up to 13 mm. 3. Focal moderate to severe stenosis of the mid left common iliac artery exaggerated by tortuosity. 4. Occluded left external iliac artery and common femoral artery with reconstitution of the left profunda. 5. Superficial femoral arteries are occluded bilaterally with reconstitution of the popliteal arteries at the level of the knees. The popliteal arteries are small in caliber and diffusely diseased, particularly on the left. 6. Limited two-vessel on the right with occlusion of the anterior tibial artery and the proximal calf. Limited three-vessel runoff on the left. 7. Prominent apparent hydronephrosis of the left kidney which appears to be likely subacute to chronic extending to the UPJ of indeterminate etiology. 8. Additional ancillary findings, as above. - s/p US guided access to right common femoral artery and RLE angiogram 05/22. - 05/28 s/p . Aortogram . R CINDY stent . R EIA stent . R ilioprofunda bypass for femoral aneurysm . R fem-BK pop bypass - Vasc surgery rec delay in aneurysm repair. -Continue oral pain medication Juxtarenal fusiform aortic aneurysm with thrombus -Vascular surgery following, appreciate assistance -Lipitor and aspirin Dilated Cardiomyopathy - EF 40-45% with moderate MVR. -Lisinopril and Coreg Discharge Planning: Pending placement
--- NOTE | 2018-06-02 14:05 | P.PNVS ---
Subjective Procedure: R iliofemoral bypass, R CINDY and EIA stents, R fem-BK pop with GSV Subjective/Hospital Course: 68/M S/P R LE revascularization Pt doing well this am His pain is well controlled Objective Vital Signs / I&O: Vital Signs 06/01/18 15:00 06/01/18 16:00 06/01/18 17:00 Temperature 98.0 F Pulse Rate 84 93 H 99 H Respiratory Rate 16 Blood Pressure 101/58 L Pulse Oximetry 99 06/01/18 18:00 06/01/18 19:00 06/01/18 20:00 Temperature Pulse Rate 87 87 87 Respiratory Rate 18 Blood Pressure 117/58 L Pulse Oximetry 100 06/01/18 21:00 06/01/18 22:00 06/01/18 23:00 Temperature 98.1 F Pulse Rate 87 87 88 Respiratory Rate 18 Blood Pressure 107/59 L Pulse Oximetry 100 06/02/18 00:00 06/02/18 01:00 06/02/18 02:00 Temperature Pulse Rate 78 78 87 Respiratory Rate Blood Pressure Pulse Oximetry 06/02/18 03:00 06/02/18 04:00 06/02/18 05:00 Temperature 98.2 F Pulse Rate 87 87 79 Respiratory Rate 18 Blood Pressure 109/58 L Pulse Oximetry 100 06/02/18 07:00 06/02/18 08:00 06/02/18 09:00 Temperature 97.5 F L Pulse Rate 89 87 94 H Respiratory Rate 16 Blood Pressure 109/54 L Pulse Oximetry 100 06/02/18 10:00 06/02/18 11:00 06/02/18 12:00 Temperature 97.8 F Pulse Rate 92 H 93 H 100 H Respiratory Rate 16 Blood Pressure 115/57 L Pulse Oximetry 100 06/02/18 13:00 Temperature Pulse Rate 89 Respiratory Rate Blood Pressure Pulse Oximetry Intake & Output 06/01/18 06/02/18 06/02/18 18:59 06:59 18:59 Intake Total 1600 / 1600 480 / 480 Output Total 1800 / 1800 1350 / 1350 Balance -200 / -200 -870 / -870 Weight 72.9 kg Intake: Oral 1600 / 1600 480 / 480 Output: Urine 1800 / 1800 1350 / 1350 Other: # Bowel Movements 2 Exam: Right lower extremity wounds are clean dry intact. No drainage. Multiphasic right dorsalis pedis, posterior tibial signals. Assessment and Plan - Assessment (1) Peripheral vascular disease Code(s): I73.9 - Peripheral vascular disease, unspecified Status: Acute - Plan POD#3 s/p complex R LE revascularization Status post fall with dehiscence of the right calf wound that was repaired at the bedside. Plan Pt clear for d/c (to rehab) from a vascular standpoint May continue PT/OOB/ad maria isabel Leave R groin Prevena wound vac- Will remove on Sun06/04/18 in our out pt clinic Yayo eSars MD [facility]/[employer] [phone] Discharge Planning: Clear for d/c (rehab) Prevena wound vac to be removed in our out pt clinic on 07/05/18 at 11:00
[2018-06-03] MEDS: Lisinopril 5 MG Tablet PO SCH (08:54)
[2018-06-03] MEDS: Carvedilol 6.25 MG Tablet PO SCH ×2 (08:55→20:14)
[2018-06-03] MEDS: Senna/Docusate Sodium 8.6/50 MG Tablet PO SCH ×2 (08:55→20:14)
[2018-06-03] MEDS: Collagenase Oint 30 GM Tube TOPICAL SCH (09:12)
--- NOTE | 2018-06-03 10:16 | P.PN ---
Subjective Interval history: Nursing denies any deterioration since last night. Patient himself has no new complaints. Thinks his leg looks better. Awaiting placement. Physical Exam Vital signs: Vital Signs 06/02/18 11:00 06/02/18 12:00 06/02/18 13:00 Temperature 97.8 F Pulse Rate 93 H 100 H 89 Respiratory Rate 16 Blood Pressure 115/57 L Pulse Oximetry 100 06/02/18 14:00 06/02/18 15:00 06/02/18 16:00 Temperature 97.9 F Pulse Rate 98 H 82 83 Respiratory Rate 16 Blood Pressure 98/56 L Pulse Oximetry 100 06/02/18 17:00 06/02/18 18:00 06/02/18 19:00 Temperature 97.8 F Pulse Rate 92 H 97 H 95 H Respiratory Rate 16 Blood Pressure 98/52 L Pulse Oximetry 96 06/02/18 20:00 06/02/18 21:00 06/02/18 22:00 Temperature Pulse Rate 92 H 84 86 Respiratory Rate Blood Pressure Pulse Oximetry 06/02/18 23:00 06/03/18 00:00 06/03/18 01:00 Temperature Pulse Rate 80 82 80 Respiratory Rate 16 Blood Pressure 112/59 L Pulse Oximetry 06/03/18 02:00 06/03/18 03:00 06/03/18 04:00 Temperature 98.2 F Pulse Rate 80 78 80 Respiratory Rate 16 Blood Pressure 111/56 L Pulse Oximetry 97 06/03/18 05:00 06/03/18 06:00 06/03/18 08:54 Temperature Pulse Rate 92 H 76 Respiratory Rate 16 Blood Pressure Pulse Oximetry Intake & Output 06/02/18 06/03/18 06/03/18 18:59 06:59 18:59 Intake Total 1450 / 1450 480 / 480 Output Total 1600 / 1600 175 / 175 Balance -150 / -150 305 / 305 Weight 75.5 kg Intake: Oral 1450 / 1450 480 / 480 Output: Urine 1600 / 1600 175 / 175 Other: # Voids 1 Date of Last Bowel Movement 06/02/18 06/03/18 # Bowel Movements 2 3 Narrative: Right medial lower leg incision looks good, clean dry and intact. Right medial thigh incision also looks good, clean dry and intact - Urinary Catheter Management Indwelling Urethral Catheter Cath placed during this visit: yes, but has since been removed by the nurse Reason for continuing: Decision to DC catheter Insertion date: 05/28/18 Insertion time: 09:00 Removal date: 05/29/18 Removal time: 09:37 Results - Labs CBC & Chem 7: 05/29/18 04:37 05/29/18 04:37 Assessment and Plan - Assessment (1) Peripheral vascular disease Code(s): I73.9 - Peripheral vascular disease, unspecified Status: Acute (2) Ischemic ulcer Code(s): L98.499 - Non-pressure chronic ulcer of skin of other sites with unspecified severity Status: Acute - Plan 68-year-old white male with longstanding h/o tobacco abuse and no regular medical care for many years presenting with right foot pain, 1st and 2nd toe necrosis, and erythema. Has already undergone treatment for cellulitis of the same right foot with Rocephin with significant improvement in erythema, podiatry recommended conservative medical management. Is now status post ileal profunda bypass, PhamBK pop bypass, EIA stenting, CINDY stenting on 05/28. patient fell on 05/31 dehiscing his wound, underwent re-suturing. 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 No evidence for leak or rupture at this time. 2. Moderate to severe focal stenosis of the right common iliac artery origin with diffusely aneurysmal right common iliac artery more distally measuring up to 13 mm. 3. Focal moderate to severe stenosis of the mid left common iliac artery exaggerated by tortuosity. 4. Occluded left external iliac artery and common femoral artery with reconstitution of the left profunda. 5. Superficial femoral arteries are occluded bilaterally with reconstitution of the popliteal arteries at the level of the knees. The popliteal arteries are small in caliber and diffusely diseased, particularly on the left. 6. Limited two-vessel on the right with occlusion of the anterior tibial artery and the proximal calf. Limited three-vessel runoff on the left. 7. Prominent apparent hydronephrosis of the left kidney which appears to be likely subacute to chronic extending to the UPJ of indeterminate etiology. 8. Additional ancillary findings, as above. - s/p US guided access to right common femoral artery and RLE angiogram 05/22. - 05/28 s/p . Aortogram . R CINDY stent . R EIA stent . R ilioprofunda bypass for femoral aneurysm . R fem-BK pop bypass - Vasc surgery rec delay in aneurysm repair. -Continue oral pain medication Juxtarenal fusiform aortic aneurysm with thrombus -Vascular surgery following, appreciate assistance -Lipitor and aspirin Dilated Cardiomyopathy - EF 40-45% with moderate MVR. -Lisinopril and Coreg Discharge Planning: Pending placement. To follow-up closely with vascular surgery for aneurysm repair.
--- NOTE | 2018-06-03 11:07 | P.PNVS ---
Subjective Post Op Day #: 6 Procedure: R iliofemoral bypass, R CINDY and EIA stents, R fem-BK pop with GSV Subjective/Hospital Course: R lower leg tender after fall but otherwise ok tissue loss stable Objective Vital Signs / I&O: Vital Signs 06/02/18 12:00 06/02/18 13:00 06/02/18 14:00 Temperature Pulse Rate 100 H 89 98 H Respiratory Rate Blood Pressure Pulse Oximetry 06/02/18 15:00 06/02/18 16:00 06/02/18 17:00 Temperature 97.9 F Pulse Rate 82 83 92 H Respiratory Rate 16 Blood Pressure 98/56 L Pulse Oximetry 100 06/02/18 18:00 06/02/18 19:00 06/02/18 20:00 Temperature 97.8 F Pulse Rate 97 H 95 H 92 H Respiratory Rate 16 Blood Pressure 98/52 L Pulse Oximetry 96 06/02/18 21:00 06/02/18 22:00 06/02/18 23:00 Temperature Pulse Rate 84 86 80 Respiratory Rate 16 Blood Pressure 112/59 L Pulse Oximetry 06/03/18 00:00 06/03/18 01:00 06/03/18 02:00 Temperature Pulse Rate 82 80 80 Respiratory Rate Blood Pressure Pulse Oximetry 06/03/18 03:00 06/03/18 04:00 06/03/18 05:00 Temperature 98.2 F Pulse Rate 78 80 92 H Respiratory Rate 16 Blood Pressure 111/56 L Pulse Oximetry 97 06/03/18 06:00 06/03/18 08:54 Temperature Pulse Rate 76 Respiratory Rate 16 Blood Pressure Pulse Oximetry Intake & Output 06/02/18 06/03/18 06/03/18 18:59 06:59 18:59 Intake Total 1450 / 1450 480 / 480 Output Total 1600 / 1600 175 / 175 Balance -150 / -150 305 / 305 Weight 75.5 kg Intake: Oral 1450 / 1450 480 / 480 Output: Urine 1600 / 1600 175 / 175 Other: # Voids 1 Date of Last Bowel Movement 06/02/18 06/03/18 # Bowel Movements 2 3 Exam: sitting in bed, comfortable R groin Prevena removed - incision ok other incisions ok Strong PT signal Assessment and Plan - Assessment (1) Peripheral vascular disease Code(s): I73.9 - Peripheral vascular disease, unspecified Status: Acute - Plan POD#6 s/p complex R LE revascularization Status post fall with dehiscence of the right calf wound that was repaired at the bedside. Plan Pt clear for d/c (to rehab) from a vascular standpoint May continue PT/OOB/ad maria isabel Prevena removed today - have arranged f/u in 2 weeks Discharge Planning: Clear for d/c (rehab) f/u 2 weeks
[2018-06-03] MEDS: Enoxaparin Inj 40 MG/0.4 ML Syringe SQ SCH (14:47)
[2018-06-04] MEDS: Lisinopril 5 MG Tablet PO SCH (08:53)
[2018-06-04] MEDS: Senna/Docusate Sodium 8.6/50 MG Tablet PO SCH (08:54)
[2018-06-04] MEDS: Carvedilol 6.25 MG Tablet PO SCH (08:54)
[2018-06-04] MEDS: Collagenase Oint 30 GM Tube TOPICAL SCH (08:55)
[2018-06-04 10:41] VITALS: O2SAT 100
--- NOTE | 2018-06-04 10:51 | P.PNVS ---
Subjective Post Op Day #: 7 Procedure: R iliofemoral bypass, R CINDY and EIA stents, R fem-BK pop with GSV Subjective/Hospital Course: 68/M s/p R lower extremity revascularization Pt c/o L LE soreness Incisions intact w/o R/D/S/O Pt reported he is awaiting placement to a SNF for continued Rehab Objective Vital Signs / I&O: Vital Signs 06/03/18 11:00 06/03/18 12:00 06/03/18 13:00 Temperature 98.1 F Pulse Rate 80 87 90 Respiratory Rate 16 Blood Pressure 90/61 L Pulse Oximetry 99 06/03/18 14:00 06/03/18 15:00 06/03/18 16:00 Temperature 98.3 F Pulse Rate 89 88 86 Respiratory Rate 17 Blood Pressure 97/56 L Pulse Oximetry 100 06/03/18 17:00 06/03/18 18:00 06/03/18 19:00 Temperature 98.4 F Pulse Rate 82 94 H 91 H Respiratory Rate 16 Blood Pressure 104/53 L Pulse Oximetry 97 06/03/18 20:00 06/03/18 21:00 06/03/18 22:00 Temperature Pulse Rate 86 84 86 Respiratory Rate Blood Pressure Pulse Oximetry 06/03/18 23:00 06/04/18 00:00 06/04/18 01:00 Temperature 98.1 F Pulse Rate 77 88 88 Respiratory Rate 16 Blood Pressure 111/53 L Pulse Oximetry 96 06/04/18 02:00 06/04/18 03:00 06/04/18 04:00 Temperature 98.2 F Pulse Rate 86 79 92 H Respiratory Rate 16 Blood Pressure 97/52 L Pulse Oximetry 98 06/04/18 05:00 06/04/18 06:00 06/04/18 07:00 Temperature 98.4 F Pulse Rate 80 86 93 H Respiratory Rate 17 Blood Pressure 109/56 L Pulse Oximetry 100 06/04/18 08:00 06/04/18 09:00 06/04/18 10:00 Temperature Pulse Rate 93 H 104 H 101 H Respiratory Rate Blood Pressure Pulse Oximetry Intake & Output 06/03/18 06/04/18 06/04/18 18:59 06:59 18:59 Intake Total 720 / 720 480 / 480 Output Total 800 / 800 1000 / 1000 Balance -80 / -80 -520 / -520 Weight 74 kg Intake: Oral 720 / 720 480 / 480 Output: Urine 800 / 800 1000 / 1000 Other: Date of Last Bowel Movement 06/03/18 06/04/18 # Bowel Movements 1 1 Exam: LE warm w/ motor intact Incision to R LE intact w/o S/R/D/O Abdomen S/NT Assessment and Plan - Assessment (1) Peripheral vascular disease Code(s): I73.9 - Peripheral vascular disease, unspecified Status: Acute - Plan POD#7 s/p complex R LE revascularization Status post fall with dehiscence of the right calf wound that was repaired at the bedside. Plan Pt clear for d/c (to rehab) from a vascular standpoint May continue PT/OOB/ad maria isabel Arranged out pt f/u in 2W w/ a surveillance GS/DILLON Penelope Velarde [employer] [facility]/[employer] [phone] Discharge Planning: Clear for d/c (rehab) f/u 2 weeks
--- NOTE | 2018-06-04 11:25 | P.DS ---
Date of admission: 05/20/18 15:12 Primary care physician: UNKNOWN Brief History from admission: HPI from the admitting physician 68 year old with longstanding history of tobacco abuse presenting with right 1st and 2nd toe pain and right foot swelling/erythema. The patient states that for the past three weeks his right 1st and 2nd toes have become progressively black at the distal ends. He thought at first he may have had a fungus but it became progressively more painful with time to the point where he could barely put weight on his feet. He states in the past 2-3 days he noticed redness and swelling of the dorsum of his right foot. He denies fever, chills, calf pain, chest pain, shortness of breath, cough, rash, nausea, vomiting, or abdominal pain. He denies any medical problems but he also hasn't been seen by a doctor in at least ten years. He has been smoking for 55 years and states he is up to 2PPD. He has a strong family history of PAD in his brother and father. His brother has bilateral AKAs from PVD. The patient does not take any medications. He endorses pain in his foot that wakes him from sleep at night and states it is improved when he hangs his foot off the bed. Patient update on day of discharge: Patient reports he is feeling okay except for some discomfort on the right foot. Pain medication is helping. 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 Has already undergone treatment for cellulitis of the same right foot with Rocephin with significant improvement in erythema, podiatry recommended conservative medical management. Is now status post ileal profunda bypass, PhamBK pop bypass, EIA stenting, CINDY stenting on 05/28. patient fell on 05/31 dehiscing his wound, underwent re-suturing. Patient stabilized but requires rehabilitation as SNF. He is discharged to SNF to follow-up outpatient with vascular surgery and podiatry. 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 No evidence for leak or rupture at this time. 2. Moderate to severe focal stenosis of the right common iliac artery origin with diffusely aneurysmal right common iliac artery more distally measuring up to 13 mm. 3. Focal moderate to severe stenosis of the mid left common iliac artery exaggerated by tortuosity. 4. Occluded left external iliac artery and common femoral artery with reconstitution of the left profunda. 5. Superficial femoral arteries are occluded bilaterally with reconstitution of the popliteal arteries at the level of the knees. The popliteal arteries are small in caliber and diffusely diseased, particularly on the left. 6. Limited two-vessel on the right with occlusion of the anterior tibial artery and the proximal calf. Limited three-vessel runoff on the left. 7. Prominent apparent hydronephrosis of the left kidney which appears to be likely subacute to chronic extending to the UPJ of indeterminate etiology. 8. Additional ancillary findings, as above. - s/p US guided access to right common femoral artery and RLE angiogram 05/22. - 05/28 s/p . Aortogram . R CINDY stent . R EIA stent . R ilioprofunda bypass for femoral aneurysm . R fem-BK pop bypass - Vasc surgery rec delay in aneurysm repair. -Continue oral pain medication Juxtarenal fusiform aortic aneurysm with thrombus -Vascular surgery followed the patient. -Continue Lipitor and aspirin. Outpatient follow-up advised. Dilated Cardiomyopathy - EF 40-45% with moderate MVR. -Lisinopril and Coreg - Time Spent with Patient Total time spent providing and/or coordinating discharge services: Greater than 30 minutes - Quality: VTE Deep Vein Thrombosis/Pulmonary Embolism Present on Admission: No Exam Vital signs: Vital Signs 06/03/18 12:00 06/03/18 13:00 06/03/18 14:00 Temperature Pulse Rate 87 90 89 Respiratory Rate Blood Pressure Pulse Oximetry 06/03/18 15:00 06/03/18 16:00 06/03/18 17:00 Temperature 98.3 F Pulse Rate 88 86 82 Respiratory Rate 17 Blood Pressure 97/56 L Pulse Oximetry 100 06/03/18 18:00 06/03/18 19:00 06/03/18 20:00 Temperature 98.4 F Pulse Rate 94 H 91 H 86 Respiratory Rate 16 Blood Pressure 104/53 L Pulse Oximetry 97 06/03/18 21:00 06/03/18 22:00 06/03/18 23:00 Temperature 98.1 F Pulse Rate 84 86 77 Respiratory Rate 16 Blood Pressure 111/53 L Pulse Oximetry 96 06/04/18 00:00 06/04/18 01:00 06/04/18 02:00 Temperature Pulse Rate 88 88 86 Respiratory Rate Blood Pressure Pulse Oximetry 06/04/18 03:00 06/04/18 04:00 06/04/18 05:00 Temperature 98.2 F Pulse Rate 79 92 H 80 Respiratory Rate 16 Blood Pressure 97/52 L Pulse Oximetry 98 06/04/18 06:00 06/04/18 07:00 06/04/18 08:00 Temperature 98.4 F Pulse Rate 86 93 H 93 H Respiratory Rate 17 Blood Pressure 109/56 L Pulse Oximetry 100 06/04/18 09:00 06/04/18 10:00 Temperature Pulse Rate 104 H 101 H Respiratory Rate Blood Pressure Pulse Oximetry Intake & Output 06/03/18 06/04/18 06/04/18 18:59 06:59 18:59 Intake Total 720 / 720 480 / 480 Output Total 800 / 800 1000 / 1000 Balance -80 / -80 -520 / -520 Weight 74 kg Intake: Oral 720 / 720 480 / 480 Output: Urine 800 / 800 1000 / 1000 Other: Date of Last Bowel Movement 06/03/18 06/04/18 # Bowel Movements 1 1 Narrative: GENERAL: Elderly male in no acute distress SKIN: Right medial leg incision looks clean and dry. Tip of right great toe is necrotic. CARDIOVASCULAR: Normal rate and regular rhythm without murmurs, gallops, or rubs. RESPIRATORY: Good respiratory efforts. Breath sounds equal and clear to auscultation bilaterally. GASTROINTESTINAL: Abdomen soft, non-tender, non-distended. Normal active bowel sounds NEURO: Alert & Oriented x4 to person, place, time, situation. Moves all ext x4 PSYCH: Appropriate mood and affect. Results Procedures completed during hospitalization: See hospital summary - Impressions ITS Impressions Aorta w/Runoff CTA 05/20/18 00:00 CONCLUSION: 1. 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 No evidence for leak or rupture at this time. 2. Moderate to severe focal stenosis of the right common iliac artery origin with diffusely aneurysmal right common iliac artery more distally measuring up to 13 mm. 3. Focal moderate to severe stenosis of the mid left common iliac artery exaggerated by tortuosity. 4. Occluded left external iliac artery and common femoral artery with reconstitution of the left profunda. 5. Superficial femoral arteries are occluded bilaterally with reconstitution of the popliteal arteries at the level of the knees. The popliteal arteries are small in caliber and diffusely diseased, particularly on the left. 6. Limited two-vessel on the right with occlusion of the anterior tibial artery and the proximal calf. Limited three-vessel runoff on the left. 7. Prominent apparent hydronephrosis of the left kidney which appears to be likely subacute to chronic extending to the UPJ of indeterminate etiology. 8. Additional ancillary findings, as above. Extremity Arterial Study 05/20/18 00:00 CONCLUSION: 1. Severe reduction of the ABIs bilaterally. Foot X-Ray 05/20/18 10:55 CONCLUSION: Negative for an acute process Lower Extremity Ultrasound 05/21/18 00:00 CONCLUSION: 1. Venous mapping as above. Venous Doppler Study 05/21/18 00:00 CONCLUSION: 1. The study is negative for bilateral lower extremity deep venous thrombosis. Ankle X-Ray 05/31/18 00:00 CONCLUSION: Negative examination Discharge Plan - Discharge Disposition Patient Disposition: 03 Discharge to SNF - Discharge Condition Condition: Stable - Discharge Order Discharge Orders: Discharge Order (Routine); Ordered 06/03/18 Ordered By: Jake Perez Vascular Surgery Clear for Discharge (Routine); Ordered 05/31/18 Ordered By: Penelope Velarde - Physicians Team Primary Care Provider: UNKNOWN, Attending Provider: Al Weaver Other Providers: Gael Veloz MD ; Liudmila Diez DPM ; Humanzechariah,[employer] ; Gibson Hernandez MD ; Nola Patel,Ag[employer]
[2018-06-04 12:07] VITALS: PULSE 90
[2018-06-04 12:10] VITALS: BP 120/57; RESP 18; TEMP 97.6
== END 2018-06-04 12:16 ==
LOC: NEPE 10:29 → NEDA 15:12 → N07 16:54 → HCIS 05-28 13:35 → HCPC 05-28 15:11
PROVIDERS: ADMIT Family Medicine; ATTEND Family Medicine
PROC: ANGIOLE (2018-05-22 11:00)